=== PATIENT | male | born 1970 | race Caucasian/White ===

== ENCOUNTER 2017-10-30 15:34 | Emergency (ER) | payer BC ==
--- OUTSIDE RECORDS SUMMARY | 2017-10-30 15:42 | XMS REPORT ---
:1970 External Reference #:[id number] Author Organization [employer] Address [address] [address] Phone [phone] Care Team Providers Name Role Phone Ulises Mckee III, MD Primary Care Physician Unavailable Payers Type Date Identification Numbers Payment Provider Subscriber Commercial Policy Number: [id number] [facility] Charla Fleming PayID: [id number] [address] [address] ADRIANNE Silva [address] Medigap Part B Effective: [facility] [id number] Expires: 2012 PayID: [id number] [address] [address] ADRIANNE Bone [address] Medigap Part B Expires: 2010 Policy Number: [facility] Charla Fleming [id number] Care ([facility]) Group Number: [id number] [address] PayID: [id number] [place] [address] Problems Date Description Provider Status Onset: 04/12/2011 Elevated blood-pressure reading Ulises Mckee M.D. Active without diagnosis of hypertension Onset: 03/13/2012 Benign essential hypertension Ulises Mckee M.D. Active Onset: 04/02/2013 Acute pharyngitis Julio Cameron M.D. Active Onset: 04/02/2013 Myalgia & Myositis Unspec Julio Cameron M.D. Active Onset: 09/01/2017 Migraine without aura, not refractory Julio Cameron M.D. Active Onset: 10/08/2015 Essential hypertension Ulises Mckee M.D. Active Family History Date Family Member(s) Problem(s) Comments First Brother Alive And Well 1/2 brother with father in common Social History Type Date Description Comments Marital Status Single Occupation [employer] Cigarette Use Never Smoked Cigarettes ETOH Use Occasionally consumes alcohol Smoking Patient has never smoked Exercise Type/Frequency Exercises regularly hikes 10 miles weekly, walks regularly Allergies, Adverse Reactions, Alerts Date Description Reaction Status Severity Comments 10/11/2007 NKDA active Medications Medication Date Status Form Strength Qnty SIG Indications Ordering Provider Sumatriptan 09/01 Active Tablets 100mg 9tabs use at onset G43.009 Julio of head mariza Calix M.D. repeat after 2h as needed Valsartan 04/18 Active Tablets 160mg 90tab 1 by mouth I10 Ulises Bowers s every day Raghav Mckee Chlorthalidone 09/13 Active Tablets 25mg 45tab 1 by mouth I10 Ulises Bowers /2012 s every day Raghav Mckee Aleve Active Tablets 220mg as needed Unknown /0000 Advil 00 Active Tablets 200mg as needed Unknown /0000 Emergen-C Active Packet as needed Unknown Vitamin C Lite /0000 Pantoprazole 09/[address] 40mg 30tab 1 in the s morning Rakesh barrow M.D. 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 1% 10ml 2 drops H60.8x1 Michael ike- affected ear Kennedy, [employer] - three times 02/23 a day x days Valsartan 01/05 Hx Tablets 80mg 90tab 1 by mouth I10 Ulises EAustin s every day Aleshia Mckee M.D. 04/18 Rhinocort Aqua 12/11 Hx Suspension 32mcg/Act 1unit spray 1 J30.9 s spray into [place], - each nostril Raghav 01/05 once daily Clarinex 12/11 Hx Tablets 5mg 30tab 1 tab po J30.9 s everyday Aleshia Tavarez M.D. 01/05 Amlodipine 12/05 Hx Tablets 10mg 90tab 1 by mouth Ulises Bowers Besylate /2012 s every day - Rylee - pt dane Avilez 08/26 currently Lisinopril 10/25 Hx Tablets 10mg 90tab 1 po qd Ulises Bowers s Aleshia Mckee M.D. 12/05 Doxycycline 01/05 Hx Tablets 100mg 4tabs 2 tabs po x1 Ulises Bowers Hyclate /2011 then prn Aleshia Mckee M.D. 03/13 Flexeril 10/11 Hx Tablets 10mg 30tab 1 po tid prn Ulises Bowers /2007 s back spasms Aleshia Mckee M.D. 04/25 Tylenol/Codeine 10/11 Hx Tablets #3 30tab 1-2 q 6 Ulises E. #3 s hours po qhs Aleshia Mckee M.D. 04/25 Aleve Hx Tablets 220mg prn Unknown /0000 - 09/13 Celebrex Hx Capsules 200mg 30cap 1 po qd Unknown /0000 s - 09/13 Chlorhexidine Hx Solution 0.12% 15 Unknown Gluconate /0000 milliliters - swish/spit 01/20 twice a day /2014 Immunizations CPT Code Status Date Vaccine Lot # [id number] Given 10/19/2017 Influenza Virus Vaccine, Quadrivalent, Split, [id number] Preservative Free [id number] Given 10/08/2015 Influenza Virus Vaccine, Quadrivalent, Split, [id number] Preservative Free 81432 Given 08/26/2014 Flu Vaccine Split Virus Preservative Free For [id number] Indiv 3Yr Older [id number] Given 06/13/2012 Fluzone Vaccine [id number] Given 06/04/2010 Tdap - Tetanus/Diptheria/Acellular Pertussis 51028 Given 03/15/2002 Td (History By Patient) 82584 Given Unknown Tetanus And Diptheria (Td) For Adult Use Preservative Free Vital Signs Date Vital Result Comment 10/26/2017 Weight 196.00 lb Heart Rate 86 /min BP Systolic Sitting 150 mmHg BP Diastolic Sitting 60 mmHg Body Temperature 97.5 F O2 % BldC Oximetry 96 % 10/19/2017 Weight 198.00 lb Heart Rate 80 /min BP Systolic Sitting 156 mmHg BP Diastolic Sitting 94 mmHg O2 % BldC Oximetry 99 % 09/22/2017 Weight 195.50 lb Heart Rate 81 /min BP Systolic Sitting 138 mmHg BP Diastolic Sitting 78 mmHg Body Temperature 98.0 F O2 % BldC Oximetry 98 % 09/01/2017 Weight 194.38 lb Heart Rate 83 /min BP Systolic Sitting 148 mmHg BP Diastolic Sitting 100 mmHg Body Temperature 96.6 F O2 % BldC Oximetry 97 % 07/19/2017 Height 70 inches 5'10" Weight 199.00 lb Heart Rate 76 /min BP Systolic Sitting 158 mmHg BP Diastolic Sitting 108 mmHg Body Temperature 98.0 F O2 % BldC Oximetry 98 % BMI (Body Mass Index) 28.6 kg/m2 04/18/2017 Height 70 inches 5'10" Weight 195.00 lb w/ shoes Heart Rate 70 /min reg BP Systolic Sitting 144 mmHg Rue, reg cuff BP Diastolic Sitting 88 mmHg Rue, reg cuff Respiratory Rate 16 /min Body Temperature 98.8 F oral Pain Level 1 lower back and right knee O2 % BldC Oximetry 96 % on Ra BMI (Body Mass Index) 28.0 kg/m2 10/13/2016 Weight 195.00 lb Heart Rate 76 /min BP Systolic Sitting 130 mmHg BP Diastolic Sitting 82 mmHg Respiratory Rate 15 /min Body Temperature 97.9 F O2 % BldC Oximetry 98 % 08/11/2016 Weight 195.00 lb Heart Rate 90 /min BP Systolic Sitting 134 mmHg BP Diastolic Sitting 98 mmHg Body Temperature 98.2 F O2 % BldC Oximetry 98 % 05/17/2016 Weight 192.00 lb Heart Rate 77 /min BP Systolic Sitting 148 mmHg BP Diastolic Sitting 98 mmHg Body Temperature 97.6 F O2 % BldC Oximetry 97 % 04/12/2016 Height 69.5 inches 5'9.50" Weight 190.00 lb Heart Rate 64 /min BP Systolic Sitting 136 mmHg BP Diastolic Sitting 94 mmHg Body Temperature 96.9 F O2 % BldC Oximetry 98 % BMI (Body Mass Index) 27.7 kg/m2 03/02/2016 Weight 192.00 lb Heart Rate 78 /min BP Systolic Sitting 120 mmHg BP Diastolic Sitting 76 mmHg Respiratory Rate 15 /min Body Temperature 97.6 F O2 % BldC Oximetry 98 % 02/13/2016 Weight 192.00 lb Heart Rate 79 /min BP Systolic Sitting 140 mmHg BP Diastolic Sitting 86 mmHg Body Temperature 97.3 F Pain Level 99 01/06/2016 Weight 196.00 lb Heart Rate 65 /min BP Systolic Sitting 152 mmHg BP Diastolic Sitting 96 mmHg Body Temperature 97.1 F O2 % BldC Oximetry 98 % 12/12/2015 Weight 194.00 lb Heart Rate 80 /min BP Systolic Sitting 150 mmHg BP Diastolic Sitting 102 mmHg Body Temperature 97.4 F O2 % BldC Oximetry 98 % 10/31/2015 Height 70.25 inches 5'10.25" Weight 194.00 lb Heart Rate 81 /min BP Systolic 138 mmHg BP Diastolic 90 mmHg Body Temperature 97.6 F O2 % BldC Oximetry 97 % BMI (Body Mass Index) 27.6 kg/m2 10/08/2015 Weight 196.25 lb Heart Rate 70 /min BP Systolic Sitting 138 mmHg BP Diastolic Sitting 100 mmHg Body Temperature 97.2 F O2 % BldC Oximetry 98 % 04/07/2015 Height 70.25 inches 5'10.25" Weight 184.00 lb Heart Rate 65 /min BP Systolic Sitting 138 mmHg BP Diastolic Sitting 88 mmHg Body Temperature 97.0 F O2 % BldC Oximetry 99 % BMI (Body Mass Index) 26.2 kg/m2 01/20/2015 Weight 194.25 lb Heart Rate 87 /min BP Systolic Sitting 160 mmHg BP Diastolic Sitting 90 mmHg Body Temperature 97.9 F O2 % BldC Oximetry 98 % 11/12/2014 Weight 192.50 lb Heart Rate 80 /min BP Systolic Sitting 150 mmHg BP Diastolic Sitting 88 mmHg Respiratory Rate 16 /min Body Temperature 98.0 F 08/26/2014 Weight 192.00 lb Heart Rate 78 /min BP Systolic Sitting 134 mmHg BP Diastolic Sitting 88 mmHg 02/19/2014 Weight 193.00 lb Heart Rate 78 /min BP Systolic 112 mmHg Lt arm BP Diastolic 84 mmHg Lt arm BP Systolic Sitting 108 mmHg Rt arm BP Diastolic Sitting 94 mmHg Rt arm BP Systolic Standing 119 mmHg Pt Bp machine BP Diastolic Standing 87 mmHg Pt Bp machine 04/02/2013 Height 70.25 inches 5'10.25" Weight 190.00 lb Heart Rate 75 /min BP Systolic Sitting 124 mmHg BP Diastolic Sitting 84 mmHg Body Temperature 96.5 F O2 % BldC Oximetry 99 % BMI (Body Mass Index) 27.1 kg/m2 11/07/2012 Height 70.25 inches 5'10.25" Weight 201.25 lb Heart Rate 82 /min BP Systolic Sitting 134 mmHg BP Diastolic Sitting 80 mmHg Respiratory Rate 20 /min Body Temperature 97.9 F O2 % BldC Oximetry 93 % BMI (Body Mass Index) 28.7 kg/m2 10/16/2012 Height 70.25 inches 5'10.25" BP Systolic 151 mmHg His Machine BP Diastolic 89 mmHg His Machine BP Systolic Sitting 143 mmHg BP Diastolic Sitting 90 mmHg 09/13/2012 Height 70.25 inches 5'10.25" Weight 197.00 lb Heart Rate 64 /min BP Systolic Sitting 164 mmHg BP Diastolic Sitting 110 mmHg BMI (Body Mass Index) 28.1 kg/m2 08/03/2012 Height 70.25 inches 5'10.25" Weight 197.00 lb Heart Rate 88 /min BP Systolic Sitting 152 mmHg BP Diastolic Sitting 106 mmHg BMI (Body Mass Index) 28.1 kg/m2 07/25/2012 Height 70.5 inches 5'10.50" Weight 198.00 lb Heart Rate 84 /min BP Systolic Sitting 152 mmHg BP Diastolic Sitting 104 mmHg BMI (Body Mass Index) 28.0 kg/m2 03/13/2012 Height 70.5 inches 5'10.50" Weight 192.50 lb Heart Rate 84 /min BP Systolic Sitting 144 mmHg BP Diastolic Sitting 104 mmHg BMI (Body Mass Index) 27.2 kg/m2 10/13/2011 Height 70 inches 5'10" Weight 201.00 lb Heart Rate 72 /min BP Systolic 164 mmHg l (pt. machine) BP Diastolic 99 mmHg l (pt. machine) BP Systolic Sitting 148 mmHg l (Nurse) BP Diastolic Sitting 98 mmHg l (Nurse) BMI (Body Mass Index) 28.8 kg/m2 05/04/2011 Weight 191.00 lb Heart Rate 80 /min BP Systolic Sitting 122 mmHg BP Diastolic Sitting 80 mmHg 04/12/2011 Height 70 inches 5'10" Weight 193.00 lb Heart Rate 76 /min BP Systolic Sitting 132 mmHg BP Diastolic Sitting 88 mmHg BMI (Body Mass Index) 27.7 kg/m2 03/11/2011 Height 70 inches 5'10" Weight 197.00 lb Heart Rate 78 /min BP Systolic Sitting 142 mmHg BP Diastolic Sitting 80 mmHg BMI (Body Mass Index) 28.3 kg/m2 12/31/2009 Weight 196.00 lb Heart Rate 74 /min BP Systolic Sitting 120 mmHg BP Diastolic Sitting 90 mmHg 07/21/2009 Height 70.5 inches 5'10.50" Weight 192.00 lb Heart Rate 78 /min BP Systolic Sitting 172 mmHg repeat 146/ 90 BP Diastolic Sitting 90 mmHg repeat 146/ 90 Body Temperature 101.3 F BMI (Body Mass Index) 27.2 kg/m2 01/22/2009 Height 70.5 inches 5'10.50" Weight 192.00 lb up 7# Heart Rate 72 /min BP Systolic Sitting 114 mmHg BP Diastolic Sitting 70 mmHg BMI (Body Mass Index) 27.2 kg/m2 04/25/2008 Height 70.5 inches 5'10.50" Weight 185.00 lb Heart Rate 68 /min BP Systolic Sitting 126 mmHg BP Diastolic Sitting 84 mmHg BMI (Body Mass Index) 26.2 kg/m2 10/11/2007 Heart Rate 84 /min BP Systolic Sitting 142 mmHg BP Diastolic Sitting 86 mmHg 04/04/2007 Weight 192.00 lb Heart Rate 80 /min BP Systolic Sitting 132 mmHg BP Diastolic Sitting 98 mmHg Results Test Date Test Result H/L Range Note Laboratory test 09/01/2017 C Difficile PCR SEE RESULT BELOW 1, 2 finding Ua Routine 07/19/2017 Ua Specific [place] 1.010 Ua PH 7 Ua Color Yellow Ua Appera Clear Ua WBC Neg Ua Protein Neg Ua Glucose Neg Ua Ketones Neg Ua Bilirubin Neg Ua Urobilinogen Neg Ua Nitrite Neg Ua Occult Blood Neg Basic Metabolic Panel 05/31/2017 Sodium 140 mmol/L 133-145 Potassium 4.0 mmol/L 3.5-5.0 Chloride 104 mmol/L 101-111 Co2 Carbon Dioxide 30 mmol/L 22-32 Anion Gap 6 mmol/L 2-11 Glucose 96 mg/dL 70-100 Blood Urea Nitrogen 20 mg/dL 6-24 Creatinine 1.19 mg/dL High 0.67-1.17 BUN/Creatinine Ratio 16.8 8-20 Calcium 9.0 mg/dL 8.6-10.3 Egfr Non- 65.5 >60 Egfr 84.3 >60 3 Basic Metabolic Panel 04/08/2017 Sodium 141 mmol/L 133-145 Potassium 3.4 mmol/L Low 3.5-5.0 Chloride 106 mmol/L 101-111 Co2 Carbon Dioxide 29 mmol/L 22-32 Anion Gap 6 mmol/L 2-11 Glucose 101 mg/dL High 70-100 Blood Urea Nitrogen 16 mg/dL 6-24 Creatinine 1.15 mg/dL 0.67-1.17 BUN/Creatinine Ratio 13.9 8-20 Calcium 8.7 mg/dL 8.6-10.3 Egfr Non- 68.2 >60 Egfr 87.7 >60 4 Laboratory test finding 04/08/2017 PSA Screening 3.703 ng/mL 0-4.0 5 Laboratory test finding 05/28/2016 Lyme Disease Serology Negative Negative 6 Laboratory test finding 05/04/2016 Troponin-I (TnI) 0.01 ng/mL <0.03 7 Lipid Profile 04/01/2016 Triglycerides 107 mg/dL 8 (Trig/Chol/HDL) Cholesterol 187 mg/dL 9 HDL Cholesterol 51.6 mg/dL 10 LDL Cholesterol 114 mg/dL 11 Basic Metabolic Panel 02/18/2016 Sodium 139 mmol/L 133-145 Potassium 3.5 mmol/L 3.5-5.0 Chloride 103 mmol/L 101-111 Co2 Carbon Dioxide 28 mmol/L 22-32 Anion Gap 8 mmol/L 2-11 Glucose 101 mg/dL High 70-100 Blood Urea Nitrogen 15 mg/dL 6-24 Creatinine 1.18 mg/dL High 0.67-1.17 BUN/Creatinine Ratio 12.7 8-20 Calcium 9.0 mg/dL 8.6-10.3 Egfr Non- 66.8 >60 Egfr 85.9 >60 12 CBC Auto Diff 10/08/2015 White Blood Count 8.0 10^3/uL 3.5-10.8 Red Blood Count 4.77 10^6/uL 4.0-5.4 Hemoglobin 14.5 g/dL 14.0-18.0 Hematocrit 42 % 42-52 Mean Corpuscular Volume 88 fL 80-94 Mean Corpuscular Hemoglobin 30 pg 27-31 Mean Corpuscular HGB Conc 35 g/dL 31-36 Red Cell Distribution Width 14 % 10.5-15 Platelet Count 185 10^3/uL 150-450 Mean Platelet Volume 8 um3 7.4-10.4 Abs Neutrophils 5.7 10^3/uL 1.5-7.7 Abs Lymphocytes 1.4 10^3/uL 1.0-4.8 Abs Monocytes 0.6 10^3/uL 0-0.8 Abs Eosinophils 0.1 10^3/uL 0-0.6 Abs Basophils 0.1 10^3/uL 0-0.2 Abs Nucleated RBC 0 10^3/uL Granulocyte % 72.0 % 38-83 Lymphocyte % 17.8 % Low 25-47 Monocyte % 8.0 % 1-9 Eosinophil % 1.4 % 0-6 Basophil % 0.8 % 0-2 Nucleated Red Blood Cells % 0 Urinalysis Profile 10/08/2015 Urine Color Yellow Urine Appearance Clear Urine Specific [place] 1.010 1.010-1.030 Urine pH 7.0 5-9 Urine Urobilinogen Negative Negative Urine Ketones Negative Negative Urine Protein Negative Negative Urine Leukocytes Negative Negative Urine Blood Negative Negative Urine Nitrite Negative Negative Urine Bilirubin Negative Negative Urine Glucose Negative Negative Laboratory test finding 10/08/2015 PSA Diagnostic 4.026 ng/mL High 0- 4.000 13 Comp Metabolic Panel 02/12/2015 Sodium 139 mmol/L 133-145 Potassium 3.9 mmol/L 3.5-5.0 Chloride 104 mmol/L 101-111 Co2 Carbon Dioxide 32 mmol/L 22-32 Anion Gap 3 mmol/L 2-11 Glucose 101 mg/dL High 70-100 Blood Urea Nitrogen 13 mg/dL 6-24 Creatinine 1.18 mg/dL High 0.67-1.17 BUN/Creatinine Ratio 11.0 8-20 Calcium 9.1 mg/dL 8.6-10.3 Total Protein 6.4 g/dL 6.4-8.9 Albumin 4.3 g/dL 3.2-5.2 Globulin 2.1 g/dL 2-4 Albumin/Globulin Ratio 2.0 1-3 Total Bilirubin 0.60 mg/dL 0.2-1.0 Alkaline Phosphatase 68 U/L 34-104 Alt 24 U/L 7-52 Ast 18 U/L 13-39 Egfr Non- 67.1 >60 Egfr 86.2 >60 14 Lipid Profile (Trig/Chol/HDL) 02/12/2015 Triglycerides 114 mg/dL 15 Cholesterol 174 mg/dL 16 HDL Cholesterol 42.3 mg/dL 17 LDL Cholesterol 109 mg/dL 18 CBC Auto Diff 02/19/2014 White Blood Count 4.9 10^3/uL 4.8-10.8 Red Blood Count 4.69 10^6/uL 4.0-5.4 Hemoglobin 14.3 g/dL 14.0-18.0 Hematocrit 41 % Low 42-52 Mean Corpuscular Volume 88 fL 80-94 Mean Corpuscular Hemoglobin 31 pg 27-31 Mean Corpuscular HGB Conc 35 g/dL 31-36 Red Cell Distribution Width 14 % 10.5-15 Platelet Count 198 10^3/uL 150-450 Mean Platelet Volume 8 um3 7.4-10.4 Abs Neutrophils 3.1 10^3/uL 1.5-7.7 Abs Lymphocytes 1.2 10^3/uL 1.0-4.8 Abs Monocytes 0.4 10^3/uL 0-0.8 Abs Eosinophils 0.1 10^3/uL 0-0.6 Abs Basophils 0.1 10^3/uL 0-0.2 Abs Nucleated RBC 0 10^3/uL Granulocyte % 64.2 % 38-83 Lymphocyte % 24.1 % Low 25-47 Monocyte % 9.0 % 1-9 Eosinophil % 1.5 % 0-6 Basophil % 1.2 % 0-2 Nucleated Red Blood Cells % 0.1 Laboratory test finding 02/19/2014 C Reactive Protein < 1.00 mg/L &lt ; 5.00 19 Erythrocyte Sed Rate 7 mm/Hr 0-14 TSH (Thyroid Stimulating Horm) 1.51 IU/mL 0.34-5.60 Lipid Profile (Trig/Chol/HDL) 02/07/2014 Triglycerides 144 mg/dL 20 Cholesterol 199 mg/dL 21 HDL Cholesterol 46.8 mg/dL 22 LDL Cholesterol 123 mg/dL 23 Basic Metabolic Panel 02/07/2014 Sodium 140 mmol/L 133-145 Potassium 3.9 mmol/L 3.7-5.6 Chloride 104 mmol/L 101-111 Co2 Carbon Dioxide 31 mmol/L 22-32 Anion Gap 5 mmol/L 2-11 Glucose 92 mg/dL 70-100 Blood Urea Nitrogen 13 mg/dL 6-24 Creatinine 1.29 mg/dL High 0.67-1.17 BUN/Creatinine Ratio 10.1 8-20 Calcium 9.4 mg/dL 8.6-10.3 Egfr Non- 60.8 >60 Egfr 78.2 >60 24 Laboratory test finding 10/25/2013 Troponin I < 0.01 ng/mL <0.03 25 CKMB 10/25/2013 CKMB ng/mL 5.3 ng/mL 0.6-6.3 Laboratory test finding 10/25/2013 Creatine Kinase 202 U/L 10-223 CBC Auto Diff 10/25/2013 White Blood Count 5.0 10^3/uL 4.8-10.8 Red Blood Count 5.02 10^6/uL 4.0-5.4 Hemoglobin 14.6 g/dL 14.0-18.0 Hematocrit 44 % 42-52 Mean Corpuscular Volume 87 fL 80-94 Mean Corpuscular Hemoglobin 29 pg 27-31 Mean Corpuscular HGB Conc 34 g/dL 31-36 Red Cell Distribution Width 14 % 10.5-15 Platelet Count 188 10^3/uL 150-450 Mean Platelet Volume 8 um3 7.4-10.4 Abs Neutrophils 3.4 10^3/uL 1.5-7.7 Abs Lymphocytes 1.2 10^3/uL 1.0-4.8 Abs Monocytes 0.3 10^3/uL 0-0.8 Abs Eosinophils 0.1 10^3/uL 0-0.6 Abs Basophils 0.1 10^3/uL 0-0.2 Abs Nucleated RBC 0 10^3/uL Granulocyte % 67.2 % 38-83 Lymphocyte % 23.6 % Low 25-47 Monocyte % 6.9 % 1-9 Eosinophil % 1.2 % 0-6 Basophil % 1.1 % 0-2 Nucleated Red Blood Cells % 0.1 Laboratory test finding 10/25/2013 B Type Natriuretic 16 pg/mL 26 Peptide Laboratory test finding 10/25/2013 Troponin I 0.01 ng/mL <0.03 27 Inr/Protime 10/25/2013 Inr 0.91 0.85-1.06 Laboratory test finding 10/25/2013 Activated Partial 31.5 seconds 24.0- 36.1 Thrombo Time Comp Metabolic Panel 10/25/2013 Sodium 140 mmol/L 133-145 Potassium 3.9 mmol/L 3.7-5.6 Chloride 103 mmol/L 101-111 Co2 Carbon Dioxide 31 mmol/L 22-32 Anion Gap 6 mmol/L 2-11 Glucose 97 mg/dL 70-100 Blood Urea Nitrogen 15 mg/dL 6-24 Creatinine 1.22 mg/dL High 0.67-1.17 BUN/Creatinine Ratio 12.3 8-20 Calcium 9.6 mg/dL 8.6-10.3 Total Protein 7.1 g/dL 6.4-8.9 Albumin 4.6 g/dL 3.2-5.2 Globulin 2.5 g/dL 2-4 Albumin/Globulin Ratio 1.8 1-3 Total Bilirubin 0.70 mg/dL 0.2-1.0 Alkaline Phosphatase 68 U/L 34-104 Alt 34 U/L 7-52 Ast 26 U/L 13-39 Egfr Non- 64.8 >60 Egfr 83.4 >60 28 CBC Auto Diff 07/02/2013 White Blood Count 11.8 10^3/uL High 4.8-10.8 Red Blood Count 4.42 10^6/uL 4.0-5.4 Hemoglobin 13.9 g/dL Low 14.0-18.0 Hematocrit 39 % Low 42-52 Mean Corpuscular Volume 89 fL 80-94 Mean Corpuscular Hemoglobin 32 pg High 27-31 Mean Corpuscular HGB Conc 35 g/dL 31-36 Red Cell Distribution Width 13 % 10.5-15 Platelet Count 189 10^3/uL 150-450 Mean Platelet Volume 8 um3 7.4-10.4 Abs Neutrophils 10.2 10^3/uL High 1.5-7.7 Abs Lymphocytes 1.0 10^3/uL 1.0-4.8 Abs Monocytes 0.4 10^3/uL 0-0.8 Abs Eosinophils 0.1 10^3/uL 0-0.6 Abs Basophils 0.1 10^3/uL 0-0.2 Abs Nucleated RBC 0.01 10^3/uL Granulocyte % 86.6 % High 38-83 Lymphocyte % 8.7 % Low 25-47 Monocyte % 3.3 % 1-9 Eosinophil % 0.6 % 0-6 Basophil % 0.8 % 0-2 Nucleated Red Blood Cells % 0.1 Comp Metabolic Panel 07/02/2013 Sodium 138 mmol/L 133-145 Potassium 3.2 mmol/L Low 3.5-5.0 Chloride 102 mmol/L 101-111 Co2 Carbon Dioxide 28.0 mmol/L 22-32 Anion Gap 8.0 mmol/L 2-11 Glucose 145 mg/dL High 70-100 Blood Urea Nitrogen 21 mg/dL 6-24 Creatinine 1.10 mg/dL 0.50-1.40 BUN/Creatinine Ratio 19.1 8-20 Calcium 8.8 mg/dL 8.1-9.9 Total Protein 7.0 g/dL 6.2-8.1 Albumin 4.2 g/dL 3.6-5.4 Globulin 2.8 g/dL 2-4 Albumin/Globulin Ratio 1.5 1-3 Total Bilirubin 0.6 mg/dL 0.4-1.5 Alkaline Phosphatase 77 U/L 30-110 Alt 28 U/L 14-54 Ast 25 U/L 12-42 Egfr Non- 73.1 >60 Egfr 94.0 >60 29 Laboratory test finding 07/02/2013 Lipase 38 U/L 22-51 Troponin I 0 ng/mL 0-0.06 30 C Reactive Protein 0.7 mg/dL High Less than 0.5 Urinalysis 07/02/2013 Urine Color Yellow Urine Appearance Clear Urine Specific [place] 1.015 1.010-1.030 Urine Esterase Negative Negative Urine Nitrate Negative Negative Urine Urobilinogen Negative E.U./dL Negative Urine Protein Negative mg/dL Negative Urine pH 7.5 5-9 Urine Blood Negative Negative Urine Ketones Negative mg/dL Negative Urine Bilirubin Negative Negative Urine Glucose Negative mg/dL Negative Comp Metabolic Panel 04/02/2013 Sodium 139 mmol/L 133-145 Potassium 4.0 mmol/L 3.5-5.0 Chloride 101 mmol/L 101-111 Co2 Carbon Dioxide 32.0 mmol/L 22-32 Anion Gap 6.0 mmol/L 2-11 Glucose 96 mg/dL 70-100 Blood Urea Nitrogen 11 mg/dL 6-24 Creatinine 1.20 mg/dL 0.50-1.40 BUN/Creatinine Ratio 9.2 8-20 Calcium 9.4 mg/dL 8.1-9.9 Total Protein 6.8 g/dL 6.2-8.1 Albumin 4.4 g/dL 3.6-5.4 Globulin 2.4 g/dL 2-4 Albumin/Globulin Ratio 1.8 1-3 Total Bilirubin 0.9 mg/dL 0.4-1.5 Alkaline Phosphatase 96 U/L 30-110 Alt 30 U/L 14-54 Ast 23 U/L 12-42 Egfr Non- 66.1 >60 Egfr 85.0 >60 31 CBC Auto Diff 04/02/2013 White Blood Count 6.7 10^3/uL 4.8-10.8 Red Blood Count 4.76 10^6/uL 4.0-5.4 Hemoglobin 14.4 g/dL 14.0-18.0 Hematocrit 43 % 42-52 Mean Corpuscular Volume 90 fL 80-94 Mean Corpuscular Hemoglobin 30 pg 27-31 Mean Corpuscular HGB Conc 34 g/dL 31-36 Red Cell Distribution Width 14 % 10.5-15 Platelet Count 141 10^3/uL Low 150-450 Mean Platelet Volume 10 um3 7.4-10.4 Abs Neutrophils 4.6 10^3/uL 1.5-7.7 Abs Lymphocytes 1.0 10^3/uL 1.0-4.8 Abs Monocytes 0.7 10^3/uL 0-0.8 Abs Eosinophils 0.1 10^3/uL 0-0.6 Abs Basophils 0.2 10^3/uL 0-0.2 Abs Nucleated RBC 0.01 10^3/uL [facility] Comprehensive 04/02/2013 Ebv Capsid Ag IgG Ab Negative Negative Ebv Capsid Ag IgM Ab Negative Negative [facility] Nuclear Antigen Negative Negative [facility] Virus Interp See Comment 32 Manual Differential 04/02/2013 Neutrophil % 65 % 38-83 Band % 2 % 0-8 Lymphocytes % 23 % Low 25-47 Monocytes % 7 % 0-13 Eosinophils % 3 % 0-6 RBC Morphology Normal Normal Laboratory test finding 04/02/2013 Throat Culture (SEE NOTE) 33 Laboratory test finding 04/02/2013 Rapid Strep A negative Basic Metabolic Panel 10/12/2012 Sodium 140 mmol/L 133-145 Potassium 3.6 mmol/L 3.5-5.0 Chloride 102 mmol/L 101-111 Co2 Carbon Dioxide 32.0 mmol/L 22-32 Anion Gap 6.0 mmol/L 2-11 Glucose 86 mg/dL 70-100 Blood Urea Nitrogen 15 mg/dL 6-24 Creatinine 1.20 mg/dL 0.50-1.40 BUN/Creatinine Ratio 12.5 8-20 Calcium 9.5 mg/dL 8.1-9.9 Egfr Non- 66.4 >60 Egfr 85.4 >60 34 Urine Culture And Sensitivities 07/31/2012 Urine Culture (SEE NOTE) 35 Urinalysis W/Microscopic 07/31/2012 Urine Color Yellow Urine Appearance Clear Urine Specific [place] 1.009 Low 1.010-1.030 Urine Esterase 1+ Negative Urine Nitrate Negative Negative Urine Urobilinogen Negative Negative Urine Protein Negative Negative Urine pH 6.5 5-9 Urine Blood Negative Negative Urine Ketones Negative Negative Urine Bilirubin Negative Negative Urine Glucose Negative Negative Urine WBC 1+ (<3 /hpf) None Seen Urine RBC None Seen None Seen Urine Epithelial Cells 1+ Squamous /hpf None Seen Lipid Profile (Trig/Chol/HDL) 02/25/2012 Triglyceride 122 mg/dL 40-200 Cholesterol 183 mg/dL Less Than 200 36 High Density Lipoprotein 46 mg/dL 40-60 37 Cholesterol/HDL Ratio 3.98 AVERAGE 1-4.97 Low Density Lipoprotein 113 mg/dL High Less Than 100 38 Basic Metabolic Panel 02/25/2012 Sodium 140 mmol/L 135-145 Potassium 3.8 mmol/L 3.5-5.0 Chloride 107 mmol/L 101-111 Co2 (Carbon Dioxide) 28.0 mmol/L 22-32 Anion Gap 5.0 mmol/L 2-11 39 Glucose 88 mg/dL 70-100 BUN 12 mg/dL 6-24 Creatinine 1.4 mg/dL 0.50-1.40 One Over Creatinine 0.71 BUN/Creatinine Ratio 8.6 8-20 Calcium 9.0 mg/dL 8.1-9.9 eGFR Non- 55.8 > 60 eGFR 71.8 > [address] Mckee's Lab Panel 02/09/2011 TSH 3.25 MIU/ML 0.34-5.60 Comp Metabolic Panel 02/09/2011 Sodium 139 mmol/L 135-145 Potassium 4.0 mmol/L 3.5-5.0 Chloride 103 mmol/L 101-111 Co2 (Carbon Dioxide) 29.0 mmol/L 22-32 Anion Gap 7.0 mmol/L 2-11 41 Glucose 100 mg/dL 70-100 BUN 13 mg/dL 6-24 Creatinine 1.40 mg/dL 0.50-1.40 One Over Creatinine 0.70 BUN/Creatinine Ratio 9.3 8-20 Calcium 9.1 mg/dL 8.1-9.9 Total Protein 6.4 GM/DL 6.2-8.1 Albumin 4.3 GM/DL 3.6-5.4 Globulin 2.1 GM/DL 2-4 Albumin/Globulin Ratio 2.0 1-3 Bilirubin Total 0.9 mg/dL 0.4-1.5 42 Alkaline Phosphatase 82 U/L 39-117 Alt (SGPT) 28 U/L 17-63 Ast (Sgot) 24 U/L 12-42 eGFR Non- 56.1 > 60 eGFR 72.2 > 60 43 Lipid Profile (Trig/Chol/HDL) 02/09/2011 Triglyceride 133 mg/dL 40-200 Cholesterol 194 mg/dL Less Than 200 44 High Density Lipoprotein 45 mg/dL 40-60 45 Cholesterol/HDL Ratio 4.31 AVERAGE 1-4.97 Low Density Lipoprotein 122 mg/dL High Less Than 100 46 CBC Auto Diff 02/09/2011 White Blood Count 5.4 CUMM 4.8-10.8 Red Cell Count 4.56 CUMM Low 4.6-6.2 Hemoglobin 13.8 g/dL Low 14.0-18.0 Hematocrit 42 % 42-52 Mean Corpuscular Volume 91 um3 80-94 Mean Corpuscular Hemoglob 30 pg 27-31 Mean Corpuscular HGB Cone 33 g/dL 32-36 Redcell Distribution WDTH 14 % 10.5-15 Platelet Count 176 CUMM 150-450 Mean Platelet Volume 9.1 um3 7.4-10.4 Gran % 53.2 % 38-83 Lymph % 33.4 % 25-47 Mononuclear % 10.7 % High 1-9 Eosinophil % 2.2 % 0-6 Basophil % 0.5 % 0-2 Abs Lymphs 1.8 1.0-4.8 Abs Mononuclear 0.6 0-0.8 Absolute Neutrophil Count 2.9 1.5-7.7 Abs Eosinophils 0.1 0-0.6 Abs Basophils 0 0-0.2 [facility] 04/05/2007 CHL On Urine NEGATIVE Negative 47 GC On Urine NEGATIVE Negative 48 1 [id number] 2 SEE RESULT BELOW Name: CHARLA FLEMING : [address]: Julio Cameron MD Acct: [id number] Unit: [id number] AGE: 47 Location: [facility] Re09/01/17 SEX: M Status: REG REF SPEC: [id number] SHARON: 09/01/17-[address]: Julio Cameron MD REQ: [id number] RECD: 09/01/17 STATUS: COMP _ SOURCE: STOOL SPDESC: ORDERED: C. diff PCR COMMENTS: [id number] Procedure Result Reported Site Stool Specimen Description Final 09/02/17- 09 ML Stool Color Brown Stool Form Formed Stool Consistency Firm C. difficile PCR Final 09/01/17- 1941 ML Organism 1 027 Presumptive NEGATIVE Organism 2 Toxigenic C.diff NEGATIVE * ML - MAIN LAB ([facility]) . END OF REPORT * ML=Testing performed at Main Lab DEPARTMENT OF PATHOLOGY, [address] [place] [address] Ismael Boland M.D. Director [facility] # [id number] 3 Because ethnic data is not always readily available, this report includes an eGFR for both -Americans and non- Americans. The National Kidney Disease Education Program (NKDEP) does not endorse the use of the MDRD equation for patients that are not between the ages of 18 and 70, are , have extremes of body size, muscle mass, or nutritional status, or are non- or non-. According to the National Kidney Foundation, irrespective of diagnosis, the stage of the disease is based on the level of kidney function: Stage Description GFR(mL/min/1.73 m(2)) 1 Kidney damage with normal or decreased GFR 90 2 Kidney damage with mild decrease in GFR 60-89 3 Moderate decrease in GFR 30-59 4 Severe decrease in GFR 15-29 5 Kidney failure <15 (or dialysis) 4 Because ethnic data is not always readily available, this report includes an eGFR for both -Americans and non- Americans. The National Kidney Disease Education Program (NKDEP) does not endorse the use of the MDRD equation for patients that are not between the ages of 18 and 70, are , have extremes of body size, muscle mass, or nutritional status, or are non- or non-. According to the National Kidney Foundation, irrespective of diagnosis, the stage of the disease is based on the level of kidney function: Stage Description GFR(mL/min/1.73 m(2)) 1 Kidney damage with normal or decreased GFR 90 2 Kidney damage with mild decrease in GFR 60-89 3 Moderate decrease in GFR 30-59 4 Severe decrease in GFR 15-29 5 Kidney failure <15 (or dialysis) 5 Serum levels of PSA measured using the [employer] DXI Hybritech immunoassay should not be interpreted as absolute evidence of the presence or absence of disease. The PSA value should be used in conjunction with other pertinent clinical diagnostic procedures. The values obtained with different assay methods or kits cannot be used interchangeably. 6 Serologic response to B. burgdorferi infection is not detected, but cannot rule out early infection during which low or undetectable antibody levels to B. burgdorferi may be present. If clinically indicated, a new serum specimen should be submitted in 7-14 days. Test Performed by: [place] [address] [employer] Worker Helper: Hill Waggoner II, M.D., Ph.D. 7 Reference Range and Interpretation: TnI (ng/mL) Interpretation Less Than 0.03 ng/mL Not supportive of diagnosis of NH 0.03 - 0.50 ng/mL Indeterminate: suggest serial studies if clinically indicated. Greater than 0.5 ng/mL Consistent with diagnosis of NH 8 Desirable <150 Borderline high 150-199 High 200-499 Very High >500 9 Desirable <200 Borderline high 200-239 High >239 10 Low <40 Desirable: 40-60 High: >60 11 Desirable: <100 mg/dL Near Optimal: 100-129 mg/dL Borderline High: 130-159 mg/dL High: 160-189 mg/dL Very High: >189 mg/dL 12 Because ethnic data is not always readily available, this report includes an eGFR for both -Americans and non- Americans. The National Kidney Disease Education Program (NKDEP) does not endorse the use of the MDRD equation for patients that are not between the ages of 18 and 70, are , have extremes of body size, muscle mass, or nutritional status, or are non- or non-. According to the National Kidney Foundation, irrespective of diagnosis, the stage of the disease is based on the level of kidney function: Stage Description GFR(mL/min/1.73 m(2)) 1 Kidney damage with normal or decreased GFR 90 2 Kidney damage with mild decrease in GFR 60-89 3 Moderate decrease in GFR 30-59 4 Severe decrease in GFR 15-29 5 Kidney failure <15 (or dialysis) 13 Serum levels of PSA measured using the [employer] 60mo DXI Hybritech immunoassay should not be interpreted as absolute evidence of the presence or absence of disease. The PSA value should be used in conjunction with other pertinent clinical diagnostic procedures. The values obtained with different assay methods or kits cannot be used interchangeably. 14 Because ethnic data is not always readily available, this report includes an eGFR for both -Americans and non- Americans. The National Kidney Disease Education Program (NKDEP) does not endorse the use of the MDRD equation for patients that are not between the ages of 18 and 70, are , have extremes of body size, muscle mass, or nutritional status, or are non- or non-. According to the National Kidney Foundation, irrespective of diagnosis, the stage of the disease is based on the level of kidney function: Stage Description GFR(mL/min/1.73 m(2)) 1 Kidney damage with normal or decreased GFR 90 2 Kidney damage with mild decrease in GFR 60-89 3 Moderate decrease in GFR 30-59 4 Severe decrease in GFR 15-29 5 Kidney failure <15 (or dialysis) 15 Desirable <150 Borderline high 150-199 High 200-499 Very High >500 16 Desirable <200 Borderline high 200-239 High >239 17 Low <40 Desirable: 40-60 High: >60 18 Desirable: <100 mg/dL Near Optimal: 100-129 mg/dL Borderline High: 130-159 mg/dL High: 160-189 mg/dL Very High: >189 mg/dL 19 Acute inflammation: >10.00 20 Desirable <150 Borderline high 150-199 High 200-499 Very High >500 21 Desirable <200 Borderline high 200-239 High >239 22 Low <40 Desirable: 40-60 High: >60 23 Desirable <100 Near Optimal 100-129 Borderline high 130-159 High 160-189 Very High >189 24 Because ethnic data is not always readily available, this report includes an eGFR for both -Americans and non- Americans. The National Kidney Disease Education Program (NKDEP) does not endorse the use of the MDRD equation for patients that are not between the ages of 18 and 70, are , have extremes of body size, muscle mass, or nutritional status, or are non- or non-. According to the National Kidney Foundation, irrespective of diagnosis, the stage of the disease is based on the level of kidney function: Stage Description GFR(mL/min/1.73 m(2)) 1 Kidney damage with normal or decreased GFR 90 2 Kidney damage with mild decrease in GFR 60-89 3 Moderate decrease in GFR 30-59 4 Severe decrease in GFR 15-29 5 Kidney failure <15 (or dialysis) 25 Reference Range and Interpretation: TnI (ng/mL) Interpretation Less Than 0.03 ng/mL Not supportive of diagnosis of NH 0.03 - 0.50 ng/mL Indeterminate: suggest serial studies if clinically indicated. Greater than 0.5 ng/mL Consistent with diagnosis of NH 26 >100 to <200 pg/mL: likely compensated congestive heart failure (CHF) 200 to 400 pg/mL: likely moderate CHF >400 pg/mL: likely moderate to severe CHF [place] [facility] 27 Reference Range and Interpretation: TnI (ng/mL) Interpretation Less Than 0.03 ng/mL Not supportive of diagnosis of NH 0.03 - 0.50 ng/mL Indeterminate: suggest serial studies if clinically indicated. Greater than 0.5 ng/mL Consistent with diagnosis of NH 28 Because ethnic data is not always readily available, this report includes an eGFR for both -Americans and non- Americans. The National Kidney Disease Education Program (NKDEP) does not endorse the use of the MDRD equation for patients that are not between the ages of 18 and 70, are , have extremes of body size, muscle mass, or nutritional status, or are non- or non-. According to the National Kidney Foundation, irrespective of diagnosis, the stage of the disease is based on the level of kidney function: Stage Description GFR(mL/min/1.73 m(2)) 1 Kidney damage with normal or decreased GFR 90 2 Kidney damage with mild decrease in GFR 60-89 3 Moderate decrease in GFR 30-59 4 Severe decrease in GFR 15-29 5 Kidney failure <15 (or dialysis) 29 Because ethnic data is not always readily available, this report includes an eGFR for both -Americans and non- Americans. The National Kidney Disease Education Program (NKDEP) does not endorse the use of the MDRD equation for patients that are not between the ages of 18 and 70, are , have extremes of body size, muscle mass, or nutritional status, or are non- or non-. According to the National Kidney Foundation, irrespective of diagnosis, the stage of the disease is based on the level of kidney function: Stage Description GFR(mL/min/1.73 m(2)) 1 Kidney damage with normal or decreased GFR 90 2 Kidney damage with mild decrease in GFR 60-89 3 Moderate decrease in GFR 30-59 4 Severe decrease in GFR 15-29 5 Kidney failure <15 (or dialysis) 30 Reference Range and Interpretation: TnI (ng/mL) Interpretation Less Than 0.06 ng/mL Not supportive of diagnosis of NH 0.06 - 0.50 ng/mL Indeterminate: suggest serial studies if clinically indicated. Greater than 0.5 ng/mL Consistent with diagnosis of NH 31 Because ethnic data is not always readily available, this report includes an eGFR for both -Americans and non- Americans. The National Kidney Disease Education Program (NKDEP) does not endorse the use of the MDRD equation for patients that are not between the ages of 18 and 70, are , have extremes of body size, muscle mass, or nutritional status, or are non- or non-. According to the National Kidney Foundation, irrespective of diagnosis, the stage of the disease is based on the level of kidney function: Stage Description GFR(mL/min/1.73 m(2)) 1 Kidney damage with normal or decreased GFR 90 2 Kidney damage with mild decrease in GFR 60-89 3 Moderate decrease in GFR 30-59 4 Severe decrease in GFR 15-29 5 Kidney failure <15 (or dialysis) 32 Results suggest no prior exposure to Deisy-Franklin Virus. However, a second serum specimen should be tested in 10-14 days if clinically indicated. In most populations, at least 90% of the adult population will have been infected with EBV sometime in the past and therefore, will be positive for anti-VCA/IgG and anti- EBNA. Antibodies to EBNA develop 6-8 weeks after primary infection and remain present for life. Presence of VCA/ IgM antibodies indicates recent primary infection with EBV. Test Performed by: [facility] [facility] [place] [address] Switchboard Wire Worker Helper: Mc Arrington III, M.D. 33 RUN DATE: 04/05/13 [facility] LAB LIVE PAGE 1 RUN TIME: [address] [place] [id number] Specimen Inquiry Name: CHARLA FLEMING : [address]: Julio Cameron MD Acct: [id number] Unit: [id number] AGE: 43 Location: [facility] Re04/02/13 SEX: M Status: REG REF SPEC: [id number] SHARON: 04/02/13-[address] [facility] [address]: Julio Cameron MD REQ: [id number] RECD: 04/02/13-1536 STATUS: COMP _ SOURCE: THROAT SPDESC: ORDERED: Throat Culture QUERIES: Medent Number [id number] Procedure Result Verified Site Throat Culture Final 04/05/13- 932 ML Organism 1 NORMAL SHELBY Quantity 3+ END OF REPORT * ML=Testing performed at Main Lab DEPARTMENT OF PATHOLOGY, [facility] [employer] [place], [place] [address] Ismael Boland M.D. Director [facility] Permit #[id number] 34 Because ethnic data is not always readily available, this report includes an eGFR for both -Americans and non- Americans. The National Kidney Disease Education Program (NKDEP) does not endorse the use of the MDRD equation for patients that are not between the ages of 18 and 70, are , have extremes of body size, muscle mass, or nutritional status, or are non- or non-. According to the National Kidney Foundation, irrespective of diagnosis, the stage of the disease is based on the level of kidney function: Stage Description GFR(mL/min/1.73 m(2)) 1 Kidney damage with normal or decreased GFR 90 2 Kidney damage with mild decrease in GFR 60-89 3 Moderate decrease in GFR 30-59 4 Severe decrease in GFR 15-29 5 Kidney failure <15 (or dialysis) 35 RUN DATE: 08/02/12 [facility] LAB LIVE PAGE 1 RUN TIME: 1230 [facility] [employer] [place], [place] [address] Specimen Inquiry Name: CHARLA FLEMING Lalita : [address]: Ulises Mckee III, MD Acct: [id number] Unit: [id number] AGE: 42 Location: [facility] Re07/31/12 SEX: M Status: REG REF SPEC: [id number] SHARON: 07/31/12-[address]: Ulises Mckee III, MD REQ: [id number] RECD: 07/31/12 STATUS: COMP _ SOURCE: URINE SPDESC: ORDERED: Urine Culture COMMENTS: URINE QUERIES: Medent Number [id number] Procedure Result Verified Site Urine Culture Final 08/02/12- 1230 ML No Growth Day 2 (<1,000 CFU/mL) END OF REPORT * ML=Testing performed at Main Lab DEPARTMENT OF PATHOLOGY, [address] [place] [address] Ismael Boland M.D. Director [facility] Permit #[id number] CHOLESTEROL INTERPRETATION: Desirable: Less than 200 MG/DL Borderline-High Risk: 200-239 MG/DL High-Risk: 240 MG/DL and over 37 HDL INTERPRETATION: Undesirable: High Risk: Less than 40 MG/DL Desirable: Low Risk: Greater than 60 MG/DL 38 LDL INTERPRETATION: Low Risk Optimal Level: LDL Less than 100 MG/DL Near or Above Optimal: LDL 100-129 MG/DL Borderline High Risk: LDL 130-159 MG/DL High Risk: LDL 160-189 MG/DL Very High Risk: LDL Greater than 189 MG/DL 39 Anion gap measurement may be of limited value in the presence of any alkalosis, especially in a combined acid base disorder. . 40 Because ethnic data is not always readily available, this report includes an eGFR for both -Americans and non- Americans. The National Kidney Disease Education Program (NKDEP) does not endorse the use of the MDRD equation for patients that are not between the ages of 18 and 70, are , have extremes of body size, muscle mass, or nutritional status, or are non- or non-. According to the National Kidney Foundation, irrespective of diagnosis, the stage of the disease is based on the level of kidney function: Stage Description GFR(mL/min/1.73 m(2)) 1 Kidney damage with normal or decreased GFR 90 2 Kidney damage with mild decrease in GFR 60-89 3 Moderate decrease in GFR 30-59 4 Severe decrease in GFR 15-29 5 Kidney failure <15 (or dialysis) 41 Anion gap measurement may be of limited value in the presence of any alkalosis, especially in a combined acid base disorder. . 42 A metabolite of Naproxen, O-desmethylnaproxen, has been shown to interfere with the Jendrassik-Mulat method for measuring total bilirubin. Samples from patients who have taken Naproxen have shown spurious elevation in total bilirubin levels. 43 Because ethnic data is not always readily available, this report includes an eGFR for both -Americans and non- Americans. The National Kidney Disease Education Program (NKDEP) does not endorse the use of the MDRD equation for patients that are not between the ages of 18 and 70, are , have extremes of body size, muscle mass, or nutritional status, or are non- or non-. According to the National Kidney Foundation, irrespective of diagnosis, the stage of the disease is based on the level of kidney function: Stage Description GFR(mL/min/1.73 m(2)) 1 Kidney damage with normal or decreased GFR 90 2 Kidney damage with mild decrease in GFR 60-89 3 Moderate decrease in GFR 30-59 4 Severe decrease in GFR 15-29 5 Kidney failure <15 (or dialysis) 44 CHOLESTEROL INTERPRETATION: Desirable: Less than 200 MG/DL Borderline-High Risk: 200-239 MG/DL High-Risk: 240 MG/DL and over 45 HDL INTERPRETATION: Undesirable: High Risk: Less than 40 MG/DL Desirable: Low Risk: Greater than 60 MG/DL 46 LDL INTERPRETATION: Low Risk Optimal Level: LDL Less than 100 MG/DL Near or Above Optimal: LDL 100-129 MG/DL Borderline High Risk: LDL 130-159 MG/DL High Risk: LDL 160-189 MG/DL Very High Risk: LDL Greater than 189 MG/DL 47 . A negative result does not preclude the presence of a C.trachomatis or N.gonorrhoeae infection because results are dependent on adequate specimen collection, absence of inhibitors, and sufficient rRNA to be detected. Test results may be affected by improper specimen collection, improper specimen storage, technical error, or specimen mixup. . 48 . A negative result does not preclude the presence of a C.trachomatis or N.gonorrhoeae infection because results are dependent on adequate specimen collection, absence of inhibitors, and sufficient rRNA to be detected. Test results may be affected by improper specimen collection, improper specimen storage, technical error, or specimen mixup. . Procedures Date CPT Code Description Status 10/30/2013 10287 ECHO Stress Test Incl Perf Contiuous ekg Monitoring Completed W/Phys Superv 10/13/2001 Colonoscopy Completed Encounters Type Date Location Provider CPT E/M Dx Office Visit 09/22/2017 [facility] Ulises Mckee, 06004 R10.30 2:40p - Jimi Avilez Office Visit 09/01/2017 [facility] Hondo Rakesh, 77409 K29.00 9:40a - Milagro Hanley M.D. R19.7 G43.009 I10 Office Visit 07/19/2017 2:00p [facility] Ulises Mckee, 56591 M54.9 - Jimi Avilez Office Visit 04/18/2017 3:00p [facility] Ulises Mckee, 66262 Z00.00 - Jimi Avilez I10 R30.0 Office Visit 10/13/2016 10:00a [facility] Aleshia Mckee, 24791 I10 Jimi Avilez H61.23 Office Visit 08/11/2016 3:40p [facility] Medicine Ulises Mckee 61412 J06.9 - Jimi Avilez Office Visit 05/17/2016 11:00a [facility] Ulises Mckee 57615 R07.89 - Jimi Avilez R53.83 Office Visit 04/12/2016 10:40a [facility] Ulises Mckee 68904 Z00.00 - Sandip Avilez I10 R30.0 Office Visit 03/02/2016 9:40a [facility] [place] [address] H60.8x1 - Sandip Office Visit 02/13/2016 4:20p [facility] [place] [address] H60.8x1 - Sandip Office Visit 01/06/2016 11:20a [facility] Ulises Mckee 13373 I10 - Sandip Avilez Office Visit 12/12/2015 1:40p [facility] Melinda Tavarez M.D. 16674 J30.9 - [place] G44.209 I10 Office Visit 10/31/2015 10:00a [facility] Ulises Mckee, 37978 R10.30 - [place] M.D. Office Visit 10/08/2015 11:00a [facility] Ulises Mckee, 52805 I10 - [place] M.D. R10.30 Z23 Office Visit 04/07/2015 3:00p [facility] Ulises Mckee, 87449 V70.0 - [place] M.DAustin 401.1 788.1 Office Visit 01/20/2015 3:30p [facility] Internal [facility] [place] [address] 465.8 [place] 401.1 460 401.9 Office Visit 11/12/2014 11:40a [facility] Ulises Mckee, 50086 465.9 - [place] M.D. Office Visit 08/26/2014 3:40p [facility] Ulises Mckee, 72315 401.1 - [place] M.D. V04.81 Office Visit 02/19/2014 10:20a [facility] Ulises Mckee, 26825 V70.0 - [place] M.D. 401.1 780.79 Office Visit 04/02/2013 10:20a [facility] Julio Cameron M.D. 00689 462 - [place] 729.1 Office Visit 11/07/2012 1:40p [facility] Ulises Mckee, 79368 465.9 - [place] M.D. 401.1 Office Visit 10/16/2012 11:00a [facility] Internal [facility] Nurse Visit [place] 62020 401.1 - [place] Office Visit 09/13/2012 11:00a [facility] Ulises Mckee 97502 401.1 - [place] M.D. Office Visit 08/03/2012 11:20a [facility] Ulises Mckee 34675 789.09 - [place] M.D. 724.2 Office Visit 07/25/2012 11:40a [facility] Ulises Mckee, 44955 724.2 - Sandip Avilez 796.2 Office Visit 03/13/2012 11:00a [facility] Ulises Mckee, 66894 V70.0 - Sandip Avilez 401.1 Office Visit 10/13/2011 11:00a [facility] Ulises Mckee, 90091 796.2 - Sandip Avilez Office Visit 05/04/2011 2:00p DO Not Use [facility] Melinda Tavarez M.D. 87897 924.3 [facility] Office Visit 04/12/2011 10:20a DO Not Use [facility] Ulises Robinson Mckee, 68135 796.2 [facility] Avilez Office Visit 03/11/2011 1:40p DO Not Use [facility] Ulises Robinson Mckee, 72698 V70.0 [facility] Raghav 780.79 796.2 Office Visit 12/31/2009 9:40a DO Not Use [facility] Ulises Robinson Mckee, 63609 729.5 [facility] Meka.Eric Office Visit 07/21/2009 3:15p DO Not Use [facility] Ulises Robinson Mckee, 27843 487.1 [facility] Meka.Eric Office Visit 01/22/2009 3:45p [facility] Ulises Robinson Mckee, 20745 729.5 [facility].DAustin Office Visit 04/25/2008 10:45a [facility] Ulises Robinson Mckee, 07156 380.4 [facility] M.D. Office Visit 10/11/2007 11:30a [facility] Ulises Robinson Mckee, 96461 724.2 [facility] M.DAustin Office Visit 04/04/2007 11:15a [facility] Robinson Mckee, 90009 788.1 [facility].DAustin 709.4 Plan of Care Future Appointment(s):11/18/2017 10:20 am - Ulises Mckee M.D. at [facility] Internal Medicine - [place]65/21/2018 - Ulises Mckee M.D.M79.606 Pain in leg, unspecified
--- OUTSIDE RECORDS SUMMARY | 2017-10-30 15:43 | XMS REPORT ---
:1970 External Reference #:[id number] Author Organization [employer] Address [address] [address] Phone [phone] Care Team Providers Name Role Phone Ulises Mckee III, MD Primary Care Physician Unavailable Payers Type Date Identification Numbers Payment Provider Subscriber Commercial Policy Number: [id number] [facility] Charla Fleming PayID: [id number] [address] [address] ADRIANNE Silva [address] Medigap Part B Effective: [facility] [id number] Expires: 2012 PayID: [id number] [address] [address] ADRIANNE Bone [address] Medigap Part B Expires: 2010 Policy Number: [facility] Charla Fleming [id number] Care (Oon) Group Number: [id number] [address] PayID: [id number] [place] [address] Problems Date Description Provider Status Onset: 04/12/2011 [...] Mckee Chlorthalidone 09/13 Active Tablets 25mg 45tab 1/2 by mouth I10 Ulises Bowers s every day Raghav Mckee Aleve Active Tablets 220mg as needed Unknown /0000 Advil Active Tablets 200mg as needed Unknown /0000 Pantoprazole 09/[address] 40mg 30tab 1 in the s morning Rakesh barrow M.D. 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 1% 10ml 2 drops H60.8x1 Michael ike- affected ear Kennedy, [employer] - three times 02/23 a day x days Valsartan 01/05 Hx Tablets 80mg 90tab 1 by mouth I10 Ulises Bowers s every day Aleshia Mckee M.D. 04/18 Rhinocort Aqua 12/11 Hx Suspension 32mcg/Act 1unit spray 1 J30.9 Melinda s spray into [place] - each nostril Rahgav 01/05 once daily /2015 Clarinex 12/11 Hx Tablets 5mg 30tab 1 tab po J30.9 s everyday Aleshia Tavarez M.D. 01/05 Amlodipine 12/05 Hx Tablets 10mg 90tab 1 by mouth Ulises Pathakylate s every day - RyleeAleshia zelaya pt, M.D. 08/26 currently Lisinopril 10/25 Hx Tablets 10mg 90tab 1 po qd Ulises E. s Aleshia Mckee M.D. 12/05 Doxycycline 01/05 Hx Tablets 100mg 4tabs 2 tabs po x1 Ulises Robinson cl then prn Aleshia Mckee M.D. 03/13 Flexeril 10/11 Hx Tablets 10mg 30tab 1 po tid prn Ulises EAustin /2007 s back spasms Aleshia Mckee M.D. [...] CPT Code Status Date Vaccine Lot # [id number] Given 10/19/2017 Influenza Virus Vaccine, Quadrivalent, Split, [id number] Preservative Free [id number] Given 10/08/2015 Influenza Virus Vaccine, Quadrivalent, Split, [id number] Preservative Free 73870 Given 08/26/2014 Flu Vaccine Split Virus Preservative Free For [id number] Indiv 3Yr Older [id number] Given 06/13/2012 Fluzone Vaccine [id number] Given 06/04/2010 Tdap - Tetanus/Diptheria/Acellular Pertussis 10024 Given 03/15/2002 Td (History By Patient) 21475 Given Unknown Tetanus And Diptheria (Td) For Adult Use Preservative Free Vital Signs Date Vital Result Comment 10/19/2017 Weight 198.00 lb Heart Rate 80 [...] 2 finding Ua Routine 07/19/2017 Ua Specific [place] 1.010 Ua PH 7 Ua Color Yellow [...] Color Yellow Urine Appearance Clear Urine Specific [place] 1.010 1.010-1.030 Urine pH 7.0 5-9 Urine [...] Color Yellow Urine Appearance Clear Urine Specific [place] 1.015 1.010-1.030 Urine Esterase Negative Negative Urine [...] Color Yellow Urine Appearance Clear Urine Specific [place] 1.009 Low 1.010-1.030 Urine Esterase 1+ Negative [...] Eosinophils 0.1 0-0.6 Abs Basophils 0 0-0.2 Gcchlu 04/05/2007 CHL On Urine NEGATIVE Negative 47 GC On Urine NEGATIVE Negative 48 1 [id number] 2 SEE RESULT BELOW Name: CHARLA FLEMING : [address]: Julio Cameron MD Acct: [id number] Unit: [id number] AGE: 47 Location: [facility] Re09/01/17 SEX: M Status: REG REF SPEC: [id number] SHARON: 09/01/17-[address] [facility] [address]: Julio Cameron MD REQ: [id number] RECD: 09/01/17 STATUS: COMP _ SOURCE: STOOL SPDESC: ORDERED: C. diff PCR COMMENTS: [id number] Procedure Result Reported Site Stool Specimen Description Final 09/02/17- 0902 ML Stool Color Brown Stool Form Formed Stool Consistency Firm C. difficile PCR Final 09/01/17- 1941 ML Organism 1 027 Presumptive NEGATIVE Organism 2 Toxigenic C.diff NEGATIVE * ML - MAIN LAB ([facility]) . END OF REPORT * ML=Testing performed at Main Lab DEPARTMENT OF PATHOLOGY, [address] [place] [address] Ismael Boland M.D. Director [facility] # [id number] 3 Because ethnic data is not always [...] levels of PSA measured using the [employer] DXI Hybritech immunoassay should not be interpreted [...] submitted in 7-14 days. Test Performed by: [address] [address] Bookstore Manager: Hill Waggoner II, M.D., Ph.D. 7 Reference Range and Interpretation: TnI (ng/mL) Interpretation Less Than 0.03 ng/mL Not supportive of diagnosis of NE 0.03 - 0.50 ng/mL Indeterminate: suggest serial studies if clinically indicated. Greater than 0.5 ng/mL Consistent with diagnosis of NE 8 Desirable <150 Borderline high 150-199 High [...] Serum levels of PSA measured using the [employer] DXI Hybritech immunoassay should not be interpreted [...] 0.03 ng/mL Not supportive of diagnosis of NE 0.03 - 0.50 ng/mL Indeterminate: suggest serial studies if clinically indicated. Greater than 0.5 ng/mL Consistent with diagnosis of NE 26 >100 to <200 pg/mL: likely compensated congestive heart failure (CHF) 200 to 400 pg/mL: likely moderate CHF >400 pg/mL: likely moderate to severe CHF [facility] 27 Reference Range and Interpretation: TnI (ng/mL) Interpretation Less Than 0.03 ng/mL Not supportive of diagnosis of NE 0.03 - 0.50 ng/mL Indeterminate: suggest serial studies if clinically indicated. Greater than 0.5 ng/mL Consistent with diagnosis of NE 28 Because ethnic data is not always [...] 0.06 ng/mL Not supportive of diagnosis of NE 0.06 - 0.50 ng/mL Indeterminate: suggest serial studies if clinically indicated. Greater than 0.5 ng/mL Consistent with diagnosis of NE 31 Because ethnic data is not always [...] primary infection with EBV. Test Performed by: [facility] [employer] [address] [address] Bookstore Manager: Mc Arrington III, M.D. 33 RUN DATE: 04/05/13 [facility] LAB LIVE PAGE 1 RUN TIME: [address] [place] [address] Specimen Inquiry Name: CHARLA FLEMING Lalita : [address]: Julio Cameron MD Acct: [id number] Unit: [id number] AGE: 43 Location: [facility] Re04/02/13 SEX: M Status: REG REF SPEC: [id number] SHARON: 04/02/13-[address]: Julio Cameron MD REQ: [id number] RECD: 04/02/13 STATUS: COMP _ SOURCE: THROAT SPDESC: ORDERED: Throat Culture QUERIES: [employer] Number [id number] Procedure Result Verified Site Throat Culture Final 04/05/13- 932 ML Organism 1 NORMAL SHELBY Quantity 3+ END OF REPORT * ML=Testing performed at Main Lab DEPARTMENT OF PATHOLOGY, [facility] [employer], [place] [address] Ismael Boland M.D. Director [facility] Permit #[id number] 34 Because ethnic data is not always [...] <15 (or dialysis) 35 RUN DATE: 08/02/12 [facility] LAB LIVE PAGE 1 RUN TIME: 1230 [facility] [employer] [place], [place] [address] Specimen Inquiry Name: CHARLA FLEMING : [address]: Ulises Mckee III, MD Acct: [id number] Unit: [id number] AGE: 42 Location: [facility] Re07/31/12 SEX: M Status: REG REF SPEC: [id number] SHARON: 07/31/12-[address]: Ulises Mckee III, MD REQ: [id number] RECD: 07/31/12 STATUS: COMP _ SOURCE: URINE SPDESC: ORDERED: Urine Culture COMMENTS: URINE QUERIES: [employer] Number [id number] Procedure Result Verified Site Urine Culture Final 08/02/12- 1230 ML No Growth Day 2 (<1,000 CFU/mL) END OF REPORT * ML=Testing performed at Main Lab DEPARTMENT OF PATHOLOGY, [address] [place] [address] Ismael Boland M.D. Director [facility] Permit #[id number] CHOLESTEROL INTERPRETATION: Desirable: Less than 200 [...] has been shown to interfere with the Jendrassik-Bithlo method for measuring total bilirubin. Samples from [...] Procedures Date CPT Code Description Status 10/30/2013 01145 ECHO Stress Test Incl Perf Contiuous ekg Monitoring Completed W/Phys Superv 10/13/2001 Colonoscopy Completed Encounters Type Date Location Provider CPT E/M Dx Office Visit 09/22/2017 [facility] Ulises Mckee, [address]1039 R10.30 2:40p - Jimi Avilez Office Visit 09/01/2017 [facility] Julio Cameron, 00022 K29.00 9:40a - Tbdandre Hanley M.D. R19.7 G43.009 I10 Office Visit 07/19/2017 2:00p [facility] Ulises Mckee, 67960 M54.9 - Jimi Avilez Office Visit 04/18/2017 3:00p [facility] Ulises Mckee, 78705 Z00.00 - Jimi Avilez I10 R30.0 Office Visit 10/13/2016 10:00a [facility] - Ulises Mckee, 65717 I10 Jimi Avilez H61.23 Office Visit 08/11/2016 3:40p [facility] Ulises Mckee, 34503 J06.9 - Jimi Avilez Office Visit 05/17/2016 11:00a [facility] Ulises Mckee, 69014 R07.89 - Jimi Avilez R53.83 Office Visit 04/12/2016 10:40a [facility] Ulises Mckee, 47750 Z00.00 - Sandip Avilez I10 R30.0 Office Visit 03/02/2016 9:40a [facility] [place] [address] H60.8x1 - [place] Office Visit 02/13/2016 4:20p [facility] [place] [address] H60.8x1 - [place] Office Visit 01/06/2016 11:20a [facility] Ulises Mckee, 82086 I10 - Sandip Avilez Office Visit 12/12/2015 1:40p [facility] Melinda Tavarez M.D. 34644 J30.9 - [place] G44.209 I10 Office Visit 10/31/2015 10:00a [facility] Ulises Mckee, 98698 R10.30 - [place] M.D. Office Visit 10/08/2015 11:00a [facility] Ulises Mckee, 55568 I10 - [place] M.D. R10.30 Z23 Office Visit 04/07/2015 3:00p [facility] Ulises Mckee, 16125 V70.0 - [place] M.D. 401.1 788.1 Office Visit 01/20/2015 3:30p [facility] [place] [address] 465.8 [place] 401.1 460 401.9 Office Visit 11/12/2014 11:40a [facility] Ulises Mckee, 16867 465.9 - [place] M.D. Office Visit 08/26/2014 3:40p [facility] Ulises Mckee, 88733 401.1 - [place] M.D. V04.81 Office Visit 02/19/2014 10:20a [facility] Ulises Mckee, 15763 V70.0 - [place] M.DAustin 401.1 780.79 Office Visit 04/02/2013 10:20a [facility] Julio Cameron M.D. 39060 462 - [place] 729.1 Office Visit 11/07/2012 1:40p [facility] Ulises Mckee, 94160 465.9 - [place] M.D. 401.1 Office Visit 10/16/2012 11:00a [facility] Nurse Visit [place] [address] 401.1 - [place] Office Visit 09/13/2012 11:00a [facility] Ulises Mckee, 66876 401.1 - [place] M.D. Office Visit 08/03/2012 11:20a [facility] Ulises Mckee, 11230 789.09 - [place] M.D. 724.2 Office Visit 07/25/2012 11:40a [facility] Ulises Mckee, 69072 724.2 - [place] M.D. 796.2 Office Visit 03/13/2012 11:00a [facility] Ulises Mckee, 30490 V70.0 - [place] M.D. 401.1 Office Visit 10/13/2011 11:00a [facility] [place], [address] 796.2 - Sandip Avilez Office Visit 05/04/2011 2:00p DO Not Use [facility] Melinda Tavarez M.D. 47415 924.3 [facility] Office Visit 04/12/2011 10:20a DO Not Use [facility], [address]40[address] 796.2 [facility] 03/11/2011 1:40p DO Not Use [facility], [address]696 V70.0 [facility]79 796.2 Office Visit 12/31/2009 9:40a DO Not Use [facility], 68898 729.5 [facility] 07/21/2009 3:15p DO Not Use [facility], 93128 487.1 [facility] 01/22/2009 3:45p [facility], 39628 729.5 [facility] Office Visit 04/25/2008 10:45a [facility], 28019 380.4 [facility]. Office Visit 10/11/2007 11:30a [facility], [address] 724.2 [facility] 04/04/2007 11:15a [facility], [address]59[address] 788.1 [facility] 709.4 Plan of Care Future Appointment(s):11/18/2017 10:20 am - Ulises Mckee M.D. at [facility] - Qvlrxfuvk90/14/2018 - Ulises Mckee M.D.I10 Essential ( primary) hypertensionNew Labs:Basic Metabolic PanelComments:Home BPs all elevated on current Rx; increase Chlorthalidone to 25 mg daily and continue diet , weight control efforts. Recheck BMP on new Rx after at least 2 weeks. Recheck with home BPs in 1 monthFollow up:4 [id number] Encounter for immunization
[2017-10-30 16:21] VITALS: BP 165/97
--- NOTE | 2017-10-30 16:37 | ED ---
Sydni Elizabeth Jason, scribed for Hill Marin MD on 10/30/17 at 1608 . HPI Chest Pain - HPI Summary HPI Summary: This patient is a 47 year old M presenting to [facility] with a chief complaint of left sided Chest Pain since 2 days ago. The patient states Im feeling weak and am experiencing chest and arm pains. I might have hurt myself on Tuesday and am not sure if the pain is a pectoral, bicep or tricep issue. Also My doctor increased my blood pressure medication 6 days ago. He describes the pain location in the left pectoral and down the bicep and tricep, and states the pain is mild and sometimes I dont feel it as it lasts only for a few minutes. The patient rates the pain 5/10 in severity. Symptoms aggravated by ambulation. Symptoms alleviated by arm movement. Patient reports coughing, chills, lightheadedness, mild back pain, almost nauseous, general weakness where my legs feel heavy. Patient denies rhinorrhea, fever, SOB, and skin diaphoresis. - History of Current Complaint Time Seen by Provider: 10/30/17 15:55 Hx Obtained From: Patient Onset/Duration: Started Days Ago - 2 days ago, Still Present Timing: Constant Pain Intensity: 5 Pain Scale Used: 0-10 Numeric Aggravating Factor(s): Nothing Alleviating Factor(s): Nothing Associated Signs and Symptoms: Positive: Other: - Patient reports coughing, chills, lightheadedness, almost nauseous, general weakness where my legs feel heavy. Patient denies rhinorrhea, fever, SOB, and skin diaphoresis. - Allergy/Home Medications Allergies/Adverse Reactions: Allergies Allergy/AdvReac Type Severity Reaction Status Date / Time nitroglycerin AdvReac See Comment Verified 10/30/17 16:22 Home Medications: Home Medications Valsartan TAB* [Diovan TAB*] 160 mg PO DAILY 10/30/17 [History Confirmed ] PMH/Surg Hx/FS Hx/Imm Hx Previously Healthy: No Cardiovascular History: Reports: Hx Hypertension History: Denies: Hx Kidney Stones - Surgical History Surgery Procedure, Year, and Place: HERNIA SX A CHILD, EAR SX A CHILD Infectious Disease History: Denies: Traveled Outside the [place] in Last 30 Days - Family History Known Family History: Positive: Diabetes - Social History Alcohol Use: Weekly Substance Use Type: Reports: None Smoking Status (MU): Never Smoked Tobacco Review of Systems Positive: Chills. Negative: Fever, Skin Diaphoresis ENT: Negative - rhinorrhea Positive: Chest Pain - left pectoral down to left bicep and tricep Negative: Shortness Of Breath Positive: Other - "almost nauseous" Positive: Other - mild back pain Neurological: Other - lightheadedness Positive: Weakness - general weakness where "my legs feel heavy" All Other Systems Reviewed And Are Negative: Yes Physical Exam - Summary Physical Exam Summary: General: well-appearing, no pain distress Skin: warm, color reflects adequate perfusion, dry Head: normal Eyes: EOMI, HOLA ENT: normal Neck: supple, nontender Respiratory: CTA, breath sounds present Cardiovascular: RRR Abdomen: soft, nontender Bowel: present Musculoskeletal: normal, strength/ROM intact Neurological: normal, sensory/motor intact, A&O x3 Psychological: affect/mood appropriate Triage Information Reviewed: Yes Vital Signs On Initial Exam: Initial Vitals Temp Pulse Resp BP Pulse Ox 98.8 F 86 18 165/97 98 10/30/17 16:16 10/30/17 16:16 10/30/17 16:16 10/30/17 16:16 10/30/17 16:16 Vital Signs Reviewed: Yes Diagnostics - Vital Signs Vital Signs Temp Pulse Resp BP Pulse Ox 10/30/17 16:16 98.8 F 86 18 165/97 98 - Laboratory Lab Statement: Any lab studies that have been ordered have been reviewed, and results considered in the medical decision making process. - EKG 1556 Cardiac Rate: NL EKG Rhythm: Sinus Rhythm - 86 bpm EKG Interpretation: RBBB,flattened T wave in lead 3, and a concave up ST elevation in V2 & V3 EKG Comparison: Other - When compared with an EKG from 05/04/2016, the flattened T wave in lead 3 is new. Chest Pain Course/Dx - Course Course Of Treatment: An EKG reveals normal sinus rhythm at 86 bpm, RBBB, a flattened T wave in lead 3, and a concave up ST elevation in V2 and V3. When compared with an EKG from 05/04/2016, the flattened T wave in lead 3 is new. BP noted and advised to follow up with PCP. Medications reviewed. Allergies noted. DISCUSSED THE NEED FOR LAB WORK TO INCLUDE A TROPONIN FOR FURTHER EVALUATION AND RECOMMENDED FURTHER EVALUATION IN ED. PATIENT DECLINED AMBULANCE TRANSPORT, WILL GO BY POV. NURSING SPOKE WITH ED CHARGE NURSE ABOUT THE PATIENT. - Diagnoses Provider Diagnoses: HTN (hypertension), Chest pain Discharge - Discharge Plan Condition: Stable Disposition: HOME Patient Education Materials: Chest Pain (ED) Referrals: Ulises Mckee MD [Primary Care Provider] - Additional Instructions: GO DIRECTLY TO THE EMERGENCY DEPARTMENT FOR FURTHER EVALUATION OF YOUR CHEST PAIN AND WEAKNESS. YOUR BLOOD PRESSURE WAS ELEVATED DURING TODAY'S VISIT; FOLLOW UP WITH YOUR PCP WITHIN ONE WEEK FOR FURTHER EVALUATION. Your blood pressure was elevated during todays visit; please follow up with your primary care provider within a week for further evaluation. The documentation as recorded by the Sydni lee Jason accurately reflects the service I personally performed and the decisions made by me, Hill Marin MD.
== END 2017-10-30 16:22 | disposition home or self-care (01) ==
LOC: UCEAST 15:34
DX: R07.89 Other chest pain (principal); I10 Essential (primary) hypertension; R68.83 Chills (without fever); M54.6 Pain in thoracic spine; R42 Dizziness and giddiness; R53.1 Weakness; I45.10 Unspecified right bundle-branch block; Z88.8 Allergy status to other drugs, medicaments and biological substances
CPT/HCPCS: 93005; 99202; G0463

== ENCOUNTER 2017-10-30 16:50 | Emergency (ER) | payer BC ==
[2017-10-30 17:41] LABS: ABS Basophils 0.1 10^3/ul (0-0.2); ABS Eosinophils 0.1 10^3/ul (0-0.6); ABS Lymphocytes 1.2 10^3/ul (1.0-4.8); ABS Monocytes 0.4 10^3/ul (0-0.8); ABS Neutrophils 3.8 10^3/ul (1.5-7.7); ABS Nucleated RBC 0 10^3/ul; Eosinophil % 1.7 % (0-6); Hematocrit 40 % (42-52); Hemoglobin 13.7 g/dl (14.0-18.0); Lymphocyte % 21.3 % (25-47); Mean Corpuscular HGB Conc 35 g/dl (31-36); Mean Corpuscular Hemoglobin 30 pg (27-31); Mean Corpuscular Volume 87 fL (80-94); Mean Platelet Volume 8 um3 (7.4-10.4); Nucleated Red Blood Cells % 0.1; Platelet Count 211 10^3/ul (150-450); Red Blood Count 4.52 10^6/ul (4.0-5.4); Red Cell Distribution Width 14 % (10.5-15); White Blood Count 5.6 10^3/ul (3.5-10.8)
[2017-10-30 17:56] LABS: EGFR Non-African American 69.6 (>60)
--- NOTE | 2017-10-30 18:03 | RAD ---
Indication: Chest pain. Single frontal view of the chest performed at 1730 hours was reviewed. Comparison is made with previous exam dated May 04, 2016. No mediastinal shift is noted. Heart is of normal size and configuration. Lung yeager appear clear. IMPRESSION: NO ACTIVE CARDIOPULMONARY DISEASE IS NOTED.
[2017-10-30 22:57] VITALS: BP 166/99
--- NOTE | 2017-10-31 08:21 | ED ---
Elidia Elizabeth Thomas, scribed for Phillip Benitez MD on 10/30/17 at 1718 . HPI Chest Pain - HPI Summary HPI Summary: The patient is a 47 year old male complaining of episodes of chest pain for the last few days. He has mild pain in the emergency department and he describes it as pressure. The episodes last between a few seconds and two minutes. The patient additionally complains of episodes of generalized weakness that are sometimes aligned with the episodes of chest pain. He also complains of some lightheadedness and lower back pain. The patient denies shortness of breath, nausea, vomiting, and diaphoresis. He last had a stress test four years ago. His blood pressure medication Chlorthalidone was increased about two weeks ago. - History of Current Complaint Chief Complaint: EDChestPainROMI Time Seen by Provider: 10/30/17 17:02 Hx Obtained From: Patient Onset/Duration: Started Days Ago, Still Present Timing: Lasting Seconds, Lasting Minutes Current Severity: Mild Pain Intensity: 3 Pain Scale Used: 0-10 Numeric Character: Pressure/Squeezing Aggravating Factor(s): Nothing Alleviating Factor(s): Nothing Associated Signs and Symptoms: Positive: Chest Pain, Other: - Generalized weakness, lightheadedness, lower back pain, chest pain; NEGATIVE: SOB, N/V, diaphoresis. Negative: Fever - Allergy/Home Medications Allergies/Adverse Reactions: Allergies Allergy/AdvReac Type Severity Reaction Status Date / Time nitroglycerin AdvReac See Comment Verified 10/30/17 17:05 PMH/Surg Hx/FS Hx/Imm Hx Endocrine/Hematology History: Denies: Hx Diabetes Cardiovascular History: Reports: Hx Hypertension History: Denies: Hx Kidney Stones - Surgical History Surgery Procedure, Year, and Place: HERNIA SX A CHILD, EAR SX A CHILD Infectious Disease History: No Infectious Disease History: Denies: Traveled Outside the [place] in Last 30 Days - Family History Known Family History: Positive: Diabetes - Social History Alcohol Use: Weekly Alcohol Amount: 5-6 beers week Substance Use Type: Reports: None Smoking Status (MU): Never Smoked Tobacco Review of Systems Positive: Other - Generalized weakness. Negative: Fever, Skin Diaphoresis Positive: Chest Pain Negative: Shortness Of Breath Negative: Vomiting, Nausea Positive: Other - Lower back pain Neurological: Other - Lightheadedness All Other Systems Reviewed And Are Negative: Yes Physical Exam - Summary Physical Exam Summary: Appearance: The patient is well-nourished in no acute distress and in no acute pain. Skin: The skin is warm and dry and skin color reflects adequate perfusion. HEENT: The head is normocephalic and atraumatic. The pupils are equal and reactive. The conjunctivae are clear and without drainage. Nares are patent and without drainage. Mouth reveals moist mucous membranes and the throat is without erythema and exudate. The external ears are intact. The ear canals are patent and without drainage. The tympanic membranes are intact. Neck: the neck is supple with full range of motion and non-tender. There are no carotid bruits. There is no neck vein distension. Respiratory: Chest is non-tender. Lungs are clear to auscultation and breath sounds are symmetrical and equal. Cardiovascular: Heart is regular rate and rhythm.~There is no murmur or rub auscultated.~There is no peripheral edema and pulses are symmetrical and equal. Abdomen: The abdomen is soft and non-tender. There are normal bowel sounds heard in all four quadrants and there is no organomegaly palpated. Musculoskeletal: There is no back tenderness noted. Extremities are non-tender with full range of motion. There is good capillary refill. There is no peripheral edema or calf tenderness elicited. Neurological: Patient is alert and oriented to person, place and time. The patient has symmetrical motor strength in all four extremities. Cranial nerves are grossly intact. Deep tendon reflexes are symmetrical and equal in all four extremities. Psychiatric: The patient has an appropriate affect and does not exhibit any anxiety or depression. Triage Information Reviewed: Yes Vital Signs On Initial Exam: Initial Vitals Temp Pulse Resp BP Pulse Ox 97.8 F 85 17 166/104 100 10/30/17 16:56 10/30/17 16:56 10/30/17 16:56 10/30/17 16:56 10/30/17 16:56 Vital Signs Reviewed: Yes Diagnostics - Vital Signs Vital Signs Temp Pulse Resp BP Pulse Ox 10/30/17 17:08 104 100 10/30/17 17:07 186/105 10/30/17 16:56 97.8 F 85 17 166/104 100 - Laboratory Lab Results: Lab Results 10/30/17 10/30/17 10/30/17 Range/Units 17:30 17:30 17:30 WBC 5.6 (3.5-10.8) 10^3/ul RBC 4.52 (4.0-5.4) 10^6/ul Hgb 13.7 L (14.0-18.0) g/dl Hct 40 L (42-52) % MCV 87 (80-94) fL MCH 30 (27-31) pg MCHC 35 (31-36) g/dl RDW 14 (10.5-15) % Plt Count 211 (150-450) 10^3/ul MPV 8 (7.4-10.4) um3 Neut % (Auto) 67.9 (38-83) % Lymph % (Auto) 21.3 L (25-47) % Rincon % (Auto) 7.9 H (0-7) % Eos % (Auto) 1.7 (0-6) % Baso % (Auto) 1.2 (0-2) % Absolute Neuts (auto) 3.8 (1.5-7.7) 10^3/ul Absolute Lymphs (auto) 1.2 (1.0-4.8) 10^3/ul Absolute Monos (auto) 0.4 (0-0.8) 10^3/ul Absolute Eos (auto) 0.1 (0-0.6) 10^3/ul Absolute Basos (auto) 0.1 (0-0.2) 10^3/ul Absolute Nucleated RBC 0 10^3/ul Nucleated RBC % 0.1 D-Dimer, Quantitative < 200 (Less Than 230) ng/mL Sodium 140 (133-145) mmol/L Potassium 3.5 (3.5-5.0) mmol/L Chloride 104 (101-111) mmol/L Carbon Dioxide 31 (22-32) mmol/L Anion Gap 5 (2-11) mmol/L BUN 17 (6-24) mg/dL Creatinine 1.13 (0.67-1.17) mg/dL Est GFR ( Amer) 89.5 (>60) Est GFR (Non-Af Amer) 69.6 (>60) BUN/Creatinine Ratio 15.0 (8-20) Glucose 106 H (70-100) mg/dL Lactic Acid (0.5-2.0) mmol/L Calcium 9.4 (8.6-10.3) mg/dL Total Bilirubin 0.50 (0.2-1.0) mg/dL AST 18 (13-39) U/L ALT 22 (7-52) U/L Alkaline Phosphatase 64 (34-104) U/L Troponin I 0.00 (<0.04) ng/mL Total Protein 6.8 (6.4-8.9) g/dL Albumin 4.3 (3.2-5.2) g/dL Globulin 2.5 (2-4) g/dL Albumin/Globulin Ratio 1.7 (1-3) 10/30/17 10/30/17 Range/Units 17:30 20:11 WBC (3.5-10.8) 10^3/ul RBC (4.0-5.4) 10^6/ul Hgb (14.0-18.0) g/dl Hct (42-52) % MCV (80-94) fL MCH (27-31) pg MCHC (31-36) g/dl RDW (10.5-15) % Plt Count (150-450) 10^3/ul MPV (7.4-10.4) um3 Neut % (Auto) (38-83) % Lymph % (Auto) (25-47) % Rin[place] % (Auto) (0-7) % Eos % (Auto) (0-6) % Baso % (Auto) (0-2) % Absolute Neuts (auto) (1.5-7.7) 10^3/ul Absolute Lymphs (auto) (1.0-4.8) 10^3/ul Absolute Monos (auto) (0-0.8) 10^3/ul Absolute Eos (auto) (0-0.6) 10^3/ul Absolute Basos (auto) (0-0.2) 10^3/ul Absolute Nucleated RBC 10^3/ul Nucleated RBC % D-Dimer, Quantitative (Less Than 230) ng/mL Sodium (133-145) mmol/L Potassium (3.5-5.0) mmol/L Chloride (101-111) mmol/L Carbon Dioxide (22-32) mmol/L Anion Gap (2-11) mmol/L BUN (6-24) mg/dL Creatinine (0.67-1.17) mg/dL Est GFR ( Amer) (>60) Est GFR (Non-Af Amer) (>60) BUN/Creatinine Ratio (8-20) Glucose (70-100) mg/dL Lactic Acid 1.1 (0.5-2.0) mmol/L Calcium (8.6-10.3) mg/dL Total Bilirubin (0.2-1.0) mg/dL AST (13-39) U/L ALT (7-52) U/L Alkaline Phosphatase (34-104) U/L Troponin I 0.01 (<0.04) ng/mL Total Protein (6.4-8.9) g/dL Albumin (3.2-5.2) g/dL Globulin (2-4) g/dL Albumin/Globulin Ratio (1-3) Result Diagrams: 10/30/17 17:30 10/30/17 17:30 Lab Statement: Any lab studies that have been ordered have been reviewed, and results considered in the medical decision making process. - Radiology CXR Xray Interpretation: No Acute Changes - NO ACTIVE CARDIOPULMONARY DISEASE IS NOTED. Dr. Benitez has reviewed this report and agrees. Radiology Interpretation Completed By: Radiologist - EKG 16:56 Cardiac Rate: NL EKG Rhythm: Sinus Rhythm - at 84 BPM EKG Interpretation: Incomplete RBBB. Unchanged from 05/04/16 Chest Pain Course/Dx - Course Course Of Treatment: Mr. Fleming presented with a new atypical chest pain that has been on and off for a couple days. He was transferred from [facility] where an ECG had shown slight nonspecific changes. ECG here was unchanged from previous ECGs in April. His lab work up was negative including a d-dimer and two troponins. I recommended close F/U with his PMD to consider further W/U. - Diagnoses Provider Diagnoses: Chest pain Discharge - Discharge Plan Condition: Stable Disposition: HOME Patient Education Materials: Chest Pain (ED) Referrals: Ulises Mckee MD [Primary Care Provider] - 3 Days Additional Instructions: Follow up with your primary care physician in three days. Return to the emergency department for any new or worsening symptoms. The documentation as recorded by the Elidia lee Thomas accurately reflects the service I personally performed and the decisions made by , Phillip Benitez MD.
== END 2017-10-30 22:55 | disposition home or self-care (01) ==
LOC: ED 16:50
DX: R07.9 Chest pain, unspecified (principal); R07.89 Other chest pain; I10 Essential (primary) hypertension; I45.10 Unspecified right bundle-branch block
CPT/HCPCS: 36415; 71045; 80053; 83605; 84484; 85025; 85379; 93005; 99284

== ENCOUNTER 2017-11-13 11:47 | Emergency (ER) | payer BC ==
[2017-11-13] MEDS ORDERED: Aspirin Low Dose CHEW TAB* 81 MG PO ONE (12:00)
--- NOTE | 2017-11-13 12:18 | RAD ---
HISTORY: Chest pain COMPARISONS: October 30, 2017 VIEWS: 1: frontal portable view of the chest at 12:10 PM FINDINGS: LINES AND TUBES: None. CARDIOMEDIASTINAL SILHOUETTE: The cardiomediastinal silhouette is normal for portable technique. PLEURA: The costophrenic angles are sharp. No pleural abnormalities are noted. LUNG PARENCHYMA: The lungs are clear. ABDOMEN: The upper abdomen is clear. There is no subphrenic gas. BONES AND SOFT TISSUES: No bone or soft tissue abnormalities are noted. IMPRESSION: NO ACTIVE CARDIOPULMONARY DISEASE.
[2017-11-13 12:20] LABS: ABS Basophils 0 10^3/ul (0-0.2); ABS Eosinophils 0 10^3/ul (0-0.6); ABS Lymphocytes 0.9 10^3/ul (1.0-4.8); ABS Monocytes 0.3 10^3/ul (0-0.8); ABS Neutrophils 5.3 10^3/ul (1.5-7.7); ABS Nucleated RBC 0 10^3/ul; Eosinophil % 0.6 % (0-6); Hematocrit 42 % (42-52); Hemoglobin 14.4 g/dl (14.0-18.0); Lymphocyte % 13.3 % (25-47); Mean Corpuscular HGB Conc 34 g/dl (31-36); Mean Corpuscular Hemoglobin 30 pg (27-31); Mean Corpuscular Volume 87 fL (80-94); Mean Platelet Volume 7 um3 (7.4-10.4); Nucleated Red Blood Cells % 0; Platelet Count 204 10^3/ul (150-450); Red Cell Distribution Width 13 % (10.5-15); White Blood Count 6.6 10^3/ul (3.5-10.8)
--- OUTSIDE RECORDS SUMMARY | 2017-11-13 12:43 | XMS REPORT ---
:1970 External Reference #:[id number] Author Organization [place] Address [address] [address] Phone [phone] Care Team Providers Name Role Phone Ulises Mckee III, MD Primary Care Physician Unavailable Payers Type Date Identification Numbers Payment Provider Subscriber Commercial Policy Number: [id number] [facility] Charla Fleming PayID: [id number] [address] [address] ADRIANNE Silva [address] Medigap Part B Effective: [facility] 2010 [id number] Expires: 2012 PayID: [id number] [address] [address] ADRIANNE Bone [address] Medigap Part B Expires: 2010 Policy Number: [facility] Charla Fleming [id number] Care (Oon) Group Number: [id number] [address] PayID: [id number] [place] [address] Problems Date Description Provider Status Onset: 04/12/2011 Elevated blood-pressure reading Ulises Mckee M.D. Active without diagnosis of hypertension Onset: 03/13/2012 Benign essential hypertension Ulises Mkcee M.D. Active Onset: 04/02/2013 Acute pharyngitis Julio [...] Form Strength Qnty SIG Indications Ordering Provider Amlodipine 11/02 Active Tablets 10mg 90tab 1 by mouth I10 Ulises E. Besylate s every day Raghav Mckee Sumatriptan 09/01 Active Tablets 100mg 9tabs use at onset G43.009 [place] Succinate of head mariza Calix M.D. repeat after 2h as needed Valsartan 04/18 Active Tablets 160mg 90tab 1 by mouth I10 Ulises E. s every day Raghav Mckee Aleve Active Tablets 220mg as needed Unknown /0000 Advil Active Tablets 200mg as needed Unknown /0000 Emergen-C Active Packet as needed Unknown Vitamin C Lite /0000 Pantoprazole 09/[address] 40mg 30tab 1 in the [place] Sodium s morning Rakesh barrow M.D. 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 1% 10ml 2 drops H60.8x1 Michale ike- affected ear Kennedy, [employer] - three times 02/23 a day x days Valsartan 01/05 Hx Tablets 80mg 90tab 1 by mouth I10 Ulises E. s every day Aleshia Mckee M.D. 04/18 Rhinocort Aqua 12/11 Hx Suspension 32mcg/Act 1unit spray 1 J30.9 s spray into [place], - each nostril Raghav 01/05 once daily Clarinex 12/11 Hx Tablets 5mg 30tab 1 tab po J30.9 s everyday Aleshia Tavarez M.D. 01/05 Amlodipine 12/05 Hx Tablets 10mg 90tab 1 by mouth Ulises E. Besylate s every day - Rylee - pt dane Avilez 08/26 currently Lisinopril 10/25 Hx Tablets 10mg 90tab 1 po qd Ulises Bowers s Aleshia Mckee M.D. 12/05 Chlorthalidone 09/13 Hx Tablets 25mg 45tab 1 tab by I10 Ulises Bowers s mouth every Rylee, - kenneth Avilez 11/02 Doxycycline 01/05 Hx Tablets 100mg 4tabs 2 tabs po x1 Ulises Bowers Hyclate /2011 then prn Aleshia Mckee M.D. 03/13 Flexeril 10/11 Hx Tablets 10mg 30tab 1 po tid prn Ulises Bowers /2007 s back spasms Aleshia Mckee M.D. 04/25 Tylenol/Codeine 10/11 Hx Tablets #3 30tab 1-2 q 6 Ulises EAustin #3 s hours po qhs Aleshia Mckee M.D. 04/25 Aleve 00 Hx Tablets 220mg prn Unknown /0000 - 09/13 Celebrex 00 Hx Capsules 200mg 30cap 1 po qd Unknown /0000 s - 09/13 Chlorhexidine Hx Solution 0.12% 15 Unknown Gluconate /0000 milliliters - swish/spit 01/20 twice a day /2014 Immunizations CPT Code Status Date Vaccine Lot # [id number] Given 10/19/2017 Influenza Virus Vaccine, Quadrivalent, Split, [id number] Preservative Free 67903 Given 10/08/2015 Influenza Virus Vaccine, Quadrivalent, Split, [id number] Preservative Free 10964 Given 08/26/2014 Flu Vaccine Split Virus Preservative Free For [id number] Indiv 3Yr Older [id number] Given 06/13/2012 Fluzone Vaccine [id number] Given 06/04/2010 Tdap - Tetanus/Diptheria/Acellular Pertussis 66350 Given 03/15/2002 Td (History By Patient) 18674 Given Unknown Tetanus And Diptheria (Td) For Adult Use Preservative Free Vital Signs Date Vital Result Comment 11/02/2017 Weight 193.00 lb Heart Rate 73 /min BP Systolic 150 mmHg Left arm sitting BP Diastolic 112 mmHg Left arm sitting BP Systolic Sitting 150 mmHg Right arm BP Diastolic Sitting 120 mmHg Right arm Body Temperature 97.3 F O2 % BldC Oximetry 98 % 10/26/2017 Weight 196.00 lb Heart Rate 86 [...] Test Result H/L Range Note Laboratory test 10/30/2017 Troponin-I (TnI) 0.01 ng/mL <0.04 finding Laboratory test 09/01/2017 C Difficile PCR SEE RESULT BELOW 1, 2 finding Ua Routine 07/19/2017 Ua Specific [place] 1.010 Ua PH 7 Ua Color Yellow [...] Color Yellow Urine Appearance Clear Urine Specific [place] 1.010 1.010-1.030 Urine pH 7.0 5-9 Urine Urobilinogen Negative Negative Urine Ketones Negative Negative Urine Protein Negative Negative Urine Leukocytes Negative Negative Urine Blood Negative Negative Urine Nitrite Negative Negative Urine Bilirubin Negative Negative Urine Glucose Negative Negative Laboratory test finding 10/08/2015 PSA Diagnostic 4.026 ng/mL High 0- 4.000 13 Lipid Profile (Trig/Chol/HDL) 02/12/2015 Triglycerides 114 mg/dL 14 Cholesterol 174 mg/dL 15 HDL Cholesterol 42.3 mg/dL 16 LDL Cholesterol 109 mg/dL 17 Comp Metabolic Panel 02/12/2015 Sodium 139 mmol/L [...] Egfr Non- 67.1 >60 Egfr 86.2 >60 18 CBC Auto Diff 02/19/2014 White Blood [...] >60 Egfr 78.2 >60 24 Laboratory test 10/25/2013 Troponin I 0.01 ng/mL <0.03 25 finding Laboratory test 10/25/2013 Troponin I < 0.01 ng/mL <0.03 26 finding CKMB 10/25/2013 CKMB ng/mL 5.3 ng/mL 0.6-6.3 Laboratory test 10/25/2013 Activated Partial 31.5 seconds 24.0-36.1 finding Thrombo Time Inr/Protime 10/25/2013 Inr 0.91 0.85-1.06 Comp Metabolic Panel 10/25/2013 Sodium 140 mmol/L [...] Egfr Non- 64.8 >60 Egfr 83.4 >60 27 CBC Auto Diff 10/25/2013 White Blood Count [...] Red Blood Cells % 0.1 Laboratory test 10/25/2013 Creatine Kinase 202 U/L 10-223 finding Laboratory test 10/25/2013 B Type Natriuretic 16 pg/mL 28 finding Peptide CBC Auto Diff 07/02/2013 White Blood Count [...] Blood Cells % 0.1 Laboratory test finding 07/02/2013 Lipase 38 U/L 22-51 Troponin I 0 ng/mL 0-0.06 29 C Reactive Protein 0.7 mg/dL High Less than 0.5 Urinalysis 07/02/2013 Urine Color Yellow Urine Appearance Clear Urine Specific [place] 1.015 1.010-1.030 Urine Esterase Negative Negative Urine Nitrate Negative Negative Urine Urobilinogen Negative E.U./dL Negative Urine Protein Negative mg/dL Negative Urine pH 7.5 5-9 Urine Blood Negative Negative Urine Ketones Negative mg/dL Negative Urine Bilirubin Negative Negative Urine Glucose Negative mg/dL Negative Comp Metabolic Panel 07/02/2013 Sodium 138 mmol/L [...] Egfr Non- 73.1 >60 Egfr 94.0 >60 30 CBC Auto Diff 04/02/2013 White Blood Count [...] Negative Negative Deisy-Frank[place] Virus Interp See Comment 31 Manual Differential 04/02/2013 Neutrophil % 65 % 38-83 Band % 2 % 0-8 Lymphocytes % 23 % Low 25-47 Monocytes % 7 % 0-13 Eosinophils % 3 % 0-6 RBC Morphology Normal Normal Laboratory test finding 04/02/2013 Throat Culture (SEE NOTE) 32 Laboratory test finding 04/02/2013 Rapid Strep A negative Comp Metabolic Panel 04/02/2013 Sodium 139 mmol/L [...] Egfr Non- 66.1 >60 Egfr 85.0 >60 33 Basic Metabolic Panel 10/12/2012 Sodium 140 mmol/L [...] Color Yellow Urine Appearance Clear Urine Specific [place] 1.009 Low 1.010-1.030 Urine Esterase 1+ Negative [...] GC On Urine NEGATIVE Negative 48 1 [id number] 2 SEE RESULT BELOW Name: KSENIACHARLA : [address]: Julio Cameron MD Acct: [id number] Unit: [id number] AGE: 47 Location: [facility] Re09/01/17 SEX: M Status: REG REF SPEC: [id number] SHARON: 09/01/17-[address]: Julio Cameron MD REQ: [id number] RECD: 09/01/17 STATUS: COMP _ SOURCE: STOOL SPDESC: ORDERED: Amira velasquez PCR COMMENTS: [id number] Procedure Result Reported Site Stool Specimen Description Final 09/02/17- 0902 ML Stool Color Brown Stool Form Formed Stool Consistency Firm C. difficile PCR Final 09/01/17- 1942 ML Organism 1 027 Presumptive NEGATIVE Organism 2 Toxigenic C.diff NEGATIVE * ML - MAIN LAB ([facility]) . END OF REPORT * ML=Testing performed at Main Lab DEPARTMENT OF PATHOLOGY, [address] [place] [address] Ismael Boland M.D. Director [facility] # [id number] 3 Because ethnic data is not always [...] levels of PSA measured using the [employer] DXI Hybritech immunoassay should not be interpreted [...] submitted in 7-14 days. Test Performed by: [place] [address] [employer] Professional: Hill Waggoner II, M.D., Ph.D. 7 Reference Range and Interpretation: TnI (ng/mL) Interpretation Less Than 0.03 ng/mL Not supportive of diagnosis of MD 0.03 - 0.50 ng/mL Indeterminate: suggest serial studies if clinically indicated. Greater than 0.5 ng/mL Consistent with diagnosis of MD 8 Desirable <150 Borderline high 150-199 High [...] Serum levels of PSA measured using the [place] DXI Hybritech immunoassay should not be interpreted as absolute evidence of the presence or absence of disease. The PSA value should be used in conjunction with other pertinent clinical diagnostic procedures. The values obtained with different assay methods or kits cannot be used interchangeably. 14 Desirable <150 Borderline high 150-199 High 200-499 Very High >500 15 Desirable <200 Borderline high 200-239 High >239 16 Low <40 Desirable: 40-60 High: >60 17 Desirable: <100 mg/dL Near Optimal: 100-129 mg/dL Borderline High: 130-159 mg/dL High: 160-189 mg/dL Very High: >189 mg/dL 18 Because ethnic data is not always readily [...] 15-29 5 Kidney failure <15 (or dialysis) 19 Acute inflammation: >10.00 20 Desirable <150 [...] 0.03 ng/mL Not supportive of diagnosis of MD 0.03 - 0.50 ng/mL Indeterminate: suggest serial studies if clinically indicated. Greater than 0.5 ng/mL Consistent with diagnosis of MD 26 Reference Range and Interpretation: TnI (ng/mL) Interpretation Less Than 0.03 ng/mL Not supportive of diagnosis of MD 0.03 - 0.50 ng/mL Indeterminate: suggest serial studies if clinically indicated. Greater than 0.5 ng/mL Consistent with diagnosis of MD 27 Because ethnic data is not always readily [...] 15-29 5 Kidney failure <15 (or dialysis) 28 >100 to <200 pg/mL: likely compensated congestive heart failure (CHF) 200 to 400 pg/mL: likely moderate CHF >400 pg/mL: likely moderate to severe CHF [place] [facility] 29 Reference Range and Interpretation: TnI (ng/mL) Interpretation Less Than 0.06 ng/mL Not supportive of diagnosis of MD 0.06 - 0.50 ng/mL Indeterminate: suggest serial studies if clinically indicated. Greater than 0.5 ng/mL Consistent with diagnosis of MD 30 Because ethnic data is not always readily [...] 15-29 5 Kidney failure <15 (or dialysis) 31 Results suggest no prior exposure to Deisy-Franklin [...] primary infection with EBV. Test Performed by: [address] [address] Tennis Professional: Mc Arrington III, M.D. 32 RUN DATE: 04/05/13 [facility] LAB LIVE PAGE 1 RUN TIME: [address], [place], [place] [address] Specimen Inquiry Name: GALAKLEVERCHARLA : [address]: Julio Cameron MD Acct: [id number] Unit: [id number] AGE: 43 Location: [facility] Re04/02/13 SEX: M Status: REG REF SPEC: [id number] SHARON: 04/02/13-[address] [facility] [address]: Julio Cameron MD REQ: [id number] RECD: 04/02/13 STATUS: COMP _ SOURCE: THROAT SPDESC: ORDERED: Throat Culture QUERIES: Medent Number [id number] Procedure Result Verified Site Throat Culture Final 04/05/13- 932 ML Organism 1 NORMAL SHELBY Quantity 3+ END OF REPORT * ML=Testing performed at Main Lab DEPARTMENT OF PATHOLOGY, [address] [place] [address] Ismael Boland M.D. Director [facility] Permit #[id number] 33 Because ethnic data is not always readily [...] 15-29 5 Kidney failure <15 (or dialysis) 34 Because ethnic data is not always [...] <15 (or dialysis) 35 RUN DATE: 08/02/12 [facility] LAB LIVE PAGE 1 RUN TIME: [address] [place] [address] Specimen Inquiry Name: CHARLA FLEMING : [address]: Ulises Mckee III, MD Acct: [id number] Unit: [id number] AGE: 42 Location: [facility] Re07/31/12 SEX: M Status: REG REF SPEC: [id number] SHARON: 07/31/12-[address] [facility] [address]: Ulises Mckee III, MD REQ: [id number] RECD: 07/31/12 STATUS: COMP _ SOURCE: URINE SPDESC: ORDERED: Urine Culture COMMENTS: URINE QUERIES: Medent Number [id number] Procedure Result Verified Site Urine Culture Final 08/02/12- 1230 ML No Growth Day 2 (<1,000 CFU/mL) END OF REPORT * ML=Testing performed at Main Lab DEPARTMENT OF PATHOLOGY, [address] [place] [address] Ismael Boland M.D. Director [facility] Permit #[id number] CHOLESTEROL INTERPRETATION: Desirable: Less than 200 [...] has been shown to interfere with the [place] method for measuring total bilirubin. Samples from [...] Procedures Date CPT Code Description Status 10/30/2013 82084 ECHO Stress Test Incl Perf Contiuous ekg Monitoring Completed W/Phys Superv 10/13/2001 Colonoscopy Completed Encounters Type Date Location Provider CPT E/M Dx Office Visit 10/26/2017 [facility] Medicine Ulises Mckee, 77895 M79.606 1:00p - Jimi Avilez Office Visit 10/19/2017 [facility] Ulises Mckee, 50304 I10 2:20p - Jimi Avilez Z23 Office Visit 09/22/2017 2:40p [facility] Ulises Mckee, 97169 R10.30 - Jimi Avilez Office Visit 09/01/2017 9:40a [facility] Julio Cameron, 39240 K29.00 - Milagro Hanley M.D. R19.7 G43.009 I10 Office Visit 07/19/2017 2:00p [facility] Medicine Ulises Mckee, 40287 M54.9 - Jimi Avilez Office Visit 04/18/2017 3:00p [facility] Medicine Ulises Mckee, 95829 Z00.00 - Jimi Avilez I10 R30.0 Office Visit 10/13/2016 10:00a [facility] Internal [facility] Aleshia Mckee, 86098 I10 Jimi Avilez H61.23 Office Visit 08/11/2016 3:40p [facility] Medicine Ulises Mckee, 14368 J06.9 - Arrowjacy Avilez Office Visit 05/17/2016 11:00a [facility] Medicine Ulises Mckee, 95673 R07.89 - Arrowjacy Avilez R53.83 Office Visit 04/12/2016 10:40a [facility] Ulises Mckee, 02359 Z00.00 - Sandip Avilez I10 R30.0 Office Visit 03/02/2016 9:40a [facility] [place] [address] H60.8x1 - [place] Office Visit 02/13/2016 4:20p [facility] [place] [address] H60.8x1 - [place] Office Visit 01/06/2016 11:20a [facility] Ulises Mckee, 59988 I10 - Sandip Avilez Office Visit 12/12/2015 1:40p [facility] Melinda Tavarez M.D. 43003 J30.9 - [place] G44.209 I10 Office Visit 10/31/2015 10:00a [facility] Ulises Mckee, 14532 R10.30 - Sandip Avilez Office Visit 10/08/2015 11:00a [facility] Medicine Ulises Mckee, 96031 I10 - Sandip Avilez R10.30 Z23 Office Visit 04/07/2015 3:00p [facility] Ulises Mckee, 46231 V70.0 - Sandip Avilez 401.1 788.1 Office Visit 01/20/2015 3:30p [facility] Internal [facility] [place] [address] 465.8 [place] 401.1 460 401.9 Office Visit 11/12/2014 11:40a [facility] Ulises Mckee, 99709 465.9 - [place] Raghav Office Visit 08/26/2014 3:40p [facility] Ulises Mckee, 60707 401.1 - [place] M.Eric V04.81 Office Visit 02/19/2014 10:20a [facility] Ulises Mckee, 51768 V70.0 - Sandip Avilez 401.1 780.79 Office Visit 04/02/2013 10:20a [facility] Julio Cameron M.D. 74045 462 - [place] 729.1 Office Visit 11/07/2012 1:40p [facility] Ulises Mckee, 67208 465.9 - Sandip Avilez 401.1 Office Visit 10/16/2012 11:00a [facility] Nurse Visit [place] [address] 401.1 - [place] Office Visit 09/13/2012 11:00a [facility] Ulises Mckee, 04914 401.1 - Sandip Avilez Office Visit 08/03/2012 11:20a [facility] Ulises Mckee, 30276 789.09 - Sandip Avilez 724.2 Office Visit 07/25/2012 11:40a [facility] Ulises Mckee, 21709 724.2 - Sandip Avilez 796.2 Office Visit 03/13/2012 11:00a [facility] Ulises Mckee, 62734 V70.0 - Sandip Avilez 401.1 Office Visit 10/13/2011 11:00a [facility] Ulises Mckee, 90564 796.2 - Sandip Avilez Office Visit 05/04/2011 2:00p DO Not Use [facility] Melinda Tavarez M.D. 77907 924.3 [place] Office Visit 04/12/2011 10:20a DO Not Use [facility] Ulises Mckee, 63691 796.2 Annamaria Avilez Office Visit 03/11/2011 1:40p DO Not Use [facility] Ulises Mckee, 20810 V70.0 Annamaria Avilez 780.79 796.2 Office Visit 12/31/2009 9:40a DO Not Use [facility] Ulises Mckee, 49358 729.5 Annamaria Avilez Office Visit 07/21/2009 3:15p DO Not Use [facility] Ulises Mckee, 49618 487.1 Annamaria Avilez Office Visit 01/22/2009 3:45p [facility] Ulises Mckee, 34385 729.5 [facility] M.D. Office Visit 04/25/2008 10:45a [facility], 66845 380.4 [facility] M.D. Office Visit 10/11/2007 11:30a [facility], 85611 724.2 [facility] M.D. Office Visit 04/04/2007 11:15a [facility], 19997 788.1 [facility] M.DAustin 709.4 Plan of Care Future Appointment(s):11/30/2017 2:20 pm - Ulises Mckee M.D. at [facility] Internal Medicine - Xcizqyubh73/28/2018 - Ulises Mckee M.D.R07.9 Chest pain , vykfzzvnuinT12 Essential (primary) hypertensionNew Medication:Amlodipine Besylate 10 mgR53.83 Other fatigueNew Orders:Overnight Oximetry
--- OUTSIDE RECORDS SUMMARY | 2017-11-13 12:44 | XMS REPORT ---
:1970 External Reference #:[id number] Author Organization [employer] Address [address] [address] Phone [phone] Care Team Providers Name Role Phone Ulises Mckee III, MD Primary Care Physician Unavailable Payers Type Date Identification Numbers Payment Provider Subscriber Commercial Policy Number: [id number] [facility] Charla Fleming PayID: [id number] [address] [address] ADRIANNE Silva [address] Medigap Part B Effective: [facility] 2010 [id number] Expires: 2012 PayID: [id number] [address] [address] ADRIANNE Bone [address] Medigap Part B Expires: 2010 Policy Number: [facility] Charla Fleming [id number] Care (Oon) Group Number: [id number] [address] PayID: [id number] [place] [address] Problems Date Description Provider Status Onset: 04/12/2011 [...] Tablets 100mg 9tabs use at onset G43.009 Cannon Succinate of head mariza Calix M.D. repeat [...] Tablets DR 40mg 30tab 1 in the Cannon Sodium s morning Rakesh barrow M.D. 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 1% 10ml 2 drops H60.8x1 Michael ike- affected ear Kennedy, UTILITY CLERK - three times 02/23 a day x [...] CPT Code Status Date Vaccine Lot # [id number] Given 10/19/2017 Influenza Virus Vaccine, Quadrivalent, Split, [id number] Preservative Free 77985 Given 10/08/2015 Influenza Virus Vaccine, Quadrivalent, Split, [id number] Preservative Free 94638 Given 08/26/2014 Flu Vaccine Split Virus Preservative Free For [id number] Indiv 3Yr Older Q2038 Given 06/13/2012 Fluzone Vaccine [id number] [id number] Given 06/04/2010 Tdap - Tetanus/Diptheria/Acellular Pertussis 58243 Given 03/15/2002 Td (History By Patient) 62579 Given Unknown Tetanus And Diptheria (Td) For [...] 2 finding Ua Routine 07/19/2017 Ua Specific Galien 1.010 Ua PH 7 Ua Color Yellow [...] Color Yellow Urine Appearance Clear Urine Specific Galien 1.010 1.010-1.030 Urine pH 7.0 5-9 Urine [...] Color Yellow Urine Appearance Clear Urine Specific Galien 1.015 1.010-1.030 Urine Esterase Negative Negative Urine [...] Color Yellow Urine Appearance Clear Urine Specific Galien 1.009 Low 1.010-1.030 Urine Esterase 1+ Negative [...] GC On Urine NEGATIVE Negative 48 1 [id number] 2 SEE RESULT BELOW Name: KSENIACHARLA : [address]: Julio Cameron MD Acct: [id number] Unit: [id number] AGE: 47 Location: [facility] Re09/01/17 SEX: M Status: REG REF SPEC: [id number] SHARON: 09/01/17-[address]: Julio Cameron MD REQ: [id number] RECD: 09/01/17 STATUS: COMP _ SOURCE: STOOL SPDESC: ORDERED: Amira velasquez PCR COMMENTS: [id number] Procedure Result Reported Site Stool Specimen Description Final 09/02/17- 0902 ML Stool Color Brown Stool Form Formed Stool Consistency Firm C. difficile PCR Final 09/01/17- 1942 ML Organism 1 027 Presumptive NEGATIVE Organism 2 Toxigenic C.diff NEGATIVE * ML - MAIN LAB ([facility]) . END OF REPORT * ML=Testing performed at Main Lab DEPARTMENT OF PATHOLOGY, [address] [place] [address] Ismael Boland M.D. Director [facility] # [id number] 3 Because ethnic data is not always [...] levels of PSA measured using the [facility] DXI Hybritech immunoassay should not be interpreted [...] submitted in 7-14 days. Test Performed by: [place] [address] Front Desk Officer: Hill Waggoner II, M.D., Ph.D. 7 Reference Range and Interpretation: TnI (ng/mL) Interpretation Less Than 0.03 ng/mL Not supportive of diagnosis of UT 0.03 - 0.50 ng/mL Indeterminate: suggest serial studies if clinically indicated. Greater than 0.5 ng/mL Consistent with diagnosis of [place] 8 Desirable <150 Borderline high 150-199 High [...] Serum levels of PSA measured using the [employer] DXI Hybritech immunoassay should not be interpreted [...] 0.03 ng/mL Not supportive of diagnosis of UT 0.03 - 0.50 ng/mL Indeterminate: suggest serial studies if clinically indicated. Greater than 0.5 ng/mL Consistent with diagnosis of [place] 26 Reference Range and Interpretation: TnI (ng/mL) Interpretation Less Than 0.03 ng/mL Not supportive of diagnosis of UT 0.03 - 0.50 ng/mL Indeterminate: suggest serial studies if clinically indicated. Greater than 0.5 ng/mL Consistent with diagnosis of [place] 27 Because ethnic data is not always [...] 0.06 ng/mL Not supportive of diagnosis of UT 0.06 - 0.50 ng/mL Indeterminate: suggest serial studies if clinically indicated. Greater than 0.5 ng/mL Consistent with diagnosis of [place] 30 Because ethnic data is not always [...] primary infection with EBV. Test Performed by: [address] [address] Front Desk Officer: Mc Arrington III, M.D. 32 RUN DATE: 04/05/13 [facility] LAB LIVE PAGE 1 RUN TIME: [address], [place], [place] [address] Specimen Inquiry Name: GALAKLEVERCHARLA : [address]: Julio Cameron MD Acct: [id number] Unit: [id number] AGE: 43 Location: [facility] Re04/02/13 SEX: M Status: REG REF SPEC: [id number] SHARON: 04/02/13-1114 [facility] DR: Julio Cameron MD REQ: [id number] RECD: 04/02/13 STATUS: COMP _ SOURCE: THROAT SPDESC: ORDERED: Throat Culture QUERIES: Medent Number [id number] Procedure Result Verified Site Throat Culture Final 04/05/13- 932 ML Organism 1 NORMAL SHELBY Quantity 3+ END OF REPORT * ML=Testing performed at Main Lab DEPARTMENT OF PATHOLOGY, [address] [place] [address] Ismael Boland M.D. Director [facility] Permit #[id number] 33 Because ethnic data is not always [...] <15 (or dialysis) 35 RUN DATE: 08/02/12 [facility] LAB LIVE PAGE 1 RUN TIME: [address] [place] [address] Specimen Inquiry Name: CHARLA FLEMING : [address]: Ulises Mckee III, MD Acct: [id number] Unit: [id number] AGE: 42 Location: [facility] Re07/31/12 SEX: M Status: REG REF SPEC: [id number] SHARON: 07/31/12-0 [facility] DR: Ulises Mckee III, MD REQ: [id number] RECD: 07/31/12 STATUS: COMP _ SOURCE: URINE SPDESC: ORDERED: Urine Culture COMMENTS: URINE QUERIES: Medent Number [id number] Procedure Result Verified Site Urine Culture Final 08/02/12- 1230 ML No Growth Day 2 (<1,000 CFU/mL) END OF REPORT * ML=Testing performed at Main Lab DEPARTMENT OF PATHOLOGY, [address] [place] [address] Ismael Boland M.D. Director [facility] Permit #[id number] CHOLESTEROL INTERPRETATION: Desirable: Less than 200 [...] has been shown to interfere with the [place] method for measuring total bilirubin. Samples from [...] Procedures Date CPT Code Description Status 10/30/2013 14593 ECHO Stress Test Incl Perf Contiuous ekg Monitoring Completed W/Phys Superv 10/13/2001 Colonoscopy Completed Encounters Type Date Location Provider CPT E/M Dx Office Visit 10/26/2017 [facility] Ulises Mckee, 07779 M79.606 1:00p - Jimi Avilez Office Visit 10/19/2017 [facility] Ulises Mckee, 61754 I10 2:20p - Jimi Avilez Z23 Office Visit 09/22/2017 2:40p [facility] Ulises Mckee, 74405 R10.30 - Jimi Avilez Office Visit 09/01/2017 9:40a [facility] Julio Cameron, 84247 K29.00 - Milagro Hanley M.D. R19.7 G43.009 I10 Office Visit 07/19/2017 2:00p [facility] Ulises Mckee, 53962 M54.9 - Jimi Avilez Office Visit 04/18/2017 3:00p [facility] Ulises Mckee, 75619 Z00.00 - Jimi Avilez I10 R30.0 Office Visit 10/13/2016 10:00a [facility] Aleshia Mckee, 24257 I10 Jimi Avilez H61.23 Office Visit 08/11/2016 3:40p [facility] Ulises Mckee, 94114 J06.9 - Arrowjacy Avilez Office Visit 05/17/2016 11:00a [facility] Ulises Mckee, 07755 R07.89 - Arrowjacy Avilez R53.83 Office Visit 04/12/2016 10:40a [facility] Ulises Mckee, 10497 Z00.00 - Sandip Avilez I10 R30.0 Office Visit 03/02/2016 9:40a [facility] [place] [address] H60.8x1 - [place] Office Visit 02/13/2016 4:20p [facility] [place] [address] H60.8x1 - [place] Office Visit 01/06/2016 11:20a [facility] Ulises Mckee, 49175 I10 - Sandip Avilez Office Visit 12/12/2015 1:40p [facility] Melinda Tavarez M.D. 20547 J30.9 - [place] G44.209 I10 Office Visit 10/31/2015 10:00a [facility] Ulises Mckee, 82354 R10.30 - Sandip Avilez Office Visit 10/08/2015 11:00a [facility] Ulises Mckee, 47150 I10 - Sandip Avilez R10.30 Z23 Office Visit 04/07/2015 3:00p [facility] Ulises Mckee, 08370 V70.0 - Sandip Avilez 401.1 788.1 Office Visit 01/20/2015 3:30p [facility] [place] [address] 465.8 [place] 401.1 460 401.9 Office Visit 11/12/2014 11:40a [facility] Ulises Mckee, 78135 465.9 - [place] Raghav Office Visit 08/26/2014 3:40p [facility] Ulises Mckee, 92906 401.1 - [place] M.Eric V04.81 Office Visit 02/19/2014 10:20a [facility] Ulises Mckee, 77915 V70.0 - Sandip Avilez 401.1 780.79 Office Visit 04/02/2013 10:20a [facility] Julio Cameron M.D. 58393 462 - [place] 729.1 Office Visit 11/07/2012 1:40p [facility] Ulises Mckee, 11532 465.9 - Sandip Avilez 401.1 Office Visit 10/16/2012 11:00a [facility] Nurse Visit [place] 66518 401.1 - [place] Office Visit 09/13/2012 11:00a [facility] Ulises Mckee, 31315 401.1 - Sandip Avilez Office Visit 08/03/2012 11:20a [facility] Ulises Mckee, 75080 789.09 - Sandip Avilez 724.2 Office Visit 07/25/2012 11:40a [facility] Ulises Mckee, 44963 724.2 - Sandip Avilez 796.2 Office Visit 03/13/2012 11:00a [facility] Ulises Mckee, 53120 V70.0 - Sandip Avilez 401.1 Office Visit 10/13/2011 11:00a [facility] Ulises Mckee, 92158 796.2 - Sandip Avilez Office Visit 05/04/2011 2:00p DO Not Use [facility] Melinda Tavarez M.D. 05030 924.3 [facility] Office Visit 04/12/2011 10:20a DO Not Use [facility] Ulises Mckee, 61372 796.2 Annamaria Avilez Office Visit 03/11/2011 1:40p DO Not Use [facility] Ulises Mckee, 80092 V70.0 Annamaria Avilez 780.79 796.2 Office Visit 12/31/2009 9:40a DO Not Use [facility] Ulises Mckee, 14838 729.5 Annamaria Avilez Office Visit 07/21/2009 3:15p DO Not Use [facility] Ulises Mckee, 88668 487.1 Annamaria Avilez Office Visit 01/22/2009 3:45p [facility] Ulises Mckee, 80812 729.5 [facility] M.D. Office Visit 04/25/2008 10:45a [facility], 42330 380.4 [facility] M.D. Office Visit 10/11/2007 11:30a [facility], 63430 724.2 [facility] M.D. Office Visit 04/04/2007 11:15a [facility], 15401 788.1 [facility] M.DAustin 709.4 Plan of Care Future Appointment(s):11/18/2017 10:20 am - Ulises Mckee M.D. at [facility] - Xoyndkmmx42/28/2018 - Ulises Mckee M.D.R07.9 Chest pain , [id number] Essential (primary) hypertensionNew Medication:Amlodipine Besylate 10 mgR53.83 Other fatigueNew Orders:Overnight Oximetry
[2017-11-13 12:47] LABS: EGFR Non-African American 65.5 (>60)
[2017-11-13 13:14] LABS: Urine Appearance Clear; Urine Blood Negative (Negative); Urine Color Straw; Urine Ketones Negative (Negative); Urine Protein Negative (Negative); Urine Specific Gravity 1.005 (1.010-1.030); Urine Urobilinogen Negative (Negative)
[2017-11-13 16:09] VITALS: BP 146/91
--- NOTE | 2017-11-13 18:27 | ED ---
Casper Elizabeth Gabriel, scribed for Ulises Johnson MD on 11/13/17 at 1220 . HPI Chest Pain - HPI Summary HPI Summary: This patient is a 47 year old M presenting to [facility] with a chief complaint of intermittent left sided chest pain that began over two weeks ago. The patient rates the pain 1/10 in severity and states it radiates into his left arm. Symptoms are not aggravated by exertion. He also reports having some GERD and an occasional sore taste in his mouth. Currently the patient is asymptomatic. He was seen in the ED 2 weeks ago for the same symptoms. - History of Current Complaint Chief Complaint: EDChestPainROMI Time Seen by Provider: 11/13/17 11:58 Hx Obtained From: Patient Onset/Duration: Started Weeks Ago, Still Present Timing: Intermittent Initial Severity: Mild Current Severity: None Pain Intensity: 1 Pain Scale Used: 0-10 Numeric Chest Pain Location: Left Anterior Associated Signs and Symptoms: Positive: Other: - GERD and sore taste in mouth - Allergy/Home Medications Allergies/Adverse Reactions: Allergies Allergy/AdvReac Type Severity Reaction Status Date / Time nitroglycerin AdvReac See Comment Verified 10/30/17 17:05 PMH/Surg Hx/FS Hx/Imm Hx Endocrine/Hematology History: Denies: Hx Diabetes Cardiovascular History: Reports: Hx Hypertension GI History: Reports: Hx Gastroesophageal Reflux Disease History: Denies: Hx Kidney Stones Musculoskeletal History: Denies: Hx Rheumatoid Arthritis - Surgical History Surgery Procedure, Year, and Place: HERNIA SX A CHILD, EAR SX A CHILD Infectious Disease History: No Infectious Disease History: Denies: Traveled Outside the [place] in Last 30 Days - Family History Known Family History: Positive: Diabetes - Social History Alcohol Use: Weekly Alcohol Amount: 5-6 beers week Substance Use Type: Reports: None Smoking Status (MU): Never Smoked Tobacco Review of Systems Positive: Chest Pain Gastrointestinal: Other - GERD and sore mouth taste All Other Systems Reviewed And Are Negative: Yes Physical Exam - Summary Physical Exam Summary: VITAL SIGNS: Reviewed. GENERAL: Patient is a well-developed and nourished male who is lying comfortable in the stretcher. Patient is not in any acute respiratory distress. HEAD AND FACE: No signs of trauma. No ecchymosis, hematomas or skull depressions. No sinus tenderness. EYES: PERRLA, EOMI x 2, No injected conjunctiva, no nystagmus. EARS: Hearing grossly intact. Ear canals and tympanic membranes are within normal limits. MOUTH: Oropharynx within normal limits. NECK: Supple, trachea is midline, no adenopathy, no JVD, no carotid bruit, no c- spine tenderness, neck with full ROM. CHEST: Symmetric, no tenderness at palpation LUNGS: Clear to auscultation bilaterally. No wheezing or crackles. CVS: Regular rate and rhythm, S1 and S2 present, no murmurs or gallops appreciated. ABDOMEN: Soft, non-tender. No signs of distention. No rebound no guarding, and no masses palpated. Bowel sounds are normal. EXTREMITIES: FROM in all major joints, no edema, no cyanosis or clubbing. NEURO: Alert and oriented x 3. No acute neurological deficits. Speech is normal and follows commands. SKIN: Dry and warm Triage Information Reviewed: Yes Vital Signs On Initial Exam: Initial Vitals Temp Pulse Resp BP Pulse Ox 98.0 F 82 16 138/82 98 11/13/17 11:50 11/13/17 11:50 11/13/17 11:50 11/13/17 11:50 11/13/17 11:50 Vital Signs Reviewed: Yes Diagnostics - Vital Signs Vital Signs Temp Pulse Resp BP Pulse Ox 11/13/17 11:50 98.0 F 82 16 138/82 98 - Laboratory Lab Results: Lab Results 11/13/17 11/13/17 11/13/17 Range/Units 12:10 12:10 12:10 WBC 6.6 (3.5-10.8) 10^3/ul RBC 4.80 (4.0-5.4) 10^6/ul Hgb 14.4 (14.0-18.0) g/dl Hct 42 (42-52) % MCV 87 (80-94) fL MCH 30 (27-31) pg MCHC 34 (31-36) g/dl RDW 13 (10.5-15) % Plt Count 204 (150-450) 10^3/ul MPV 7 L (7.4-10.4) um3 Neut % (Auto) 80.3 (38-83) % Lymph % (Auto) 13.3 L (25-47) % Anson % (Auto) 5.2 (0-7) % Eos % (Auto) 0.6 (0-6) % Baso % (Auto) 0.6 (0-2) % Absolute Neuts (auto) 5.3 (1.5-7.7) 10^3/ul Absolute Lymphs (auto) 0.9 L (1.0-4.8) 10^3/ul Absolute Monos (auto) 0.3 (0-0.8) 10^3/ul Absolute Eos (auto) 0 (0-0.6) 10^3/ul Absolute Basos (auto) 0 (0-0.2) 10^3/ul Absolute Nucleated RBC 0 10^3/ul Nucleated RBC % 0 Sodium 138 (133-145) mmol/L Potassium 3.5 (3.5-5.0) mmol/L Chloride 103 (101-111) mmol/L Carbon Dioxide 29 (22-32) mmol/L Anion Gap 6 (2-11) mmol/L BUN 10 (6-24) mg/dL Creatinine 1.19 H (0.67-1.17) mg/dL Est GFR ( Amer) 84.3 (>60) Est GFR (Non-Af Amer) 65.5 (>60) BUN/Creatinine Ratio 8.4 (8-20) Glucose 147 H (70-100) mg/dL Lactic Acid (0.5-2.0) mmol/L Calcium 9.7 (8.6-10.3) mg/dL Magnesium 2.1 (1.9-2.7) mg/dL Total Bilirubin 0.50 (0.2-1.0) mg/dL AST 20 (13-39) U/L ALT 21 (7-52) U/L Alkaline Phosphatase 75 (34-104) U/L Total Creatine Kinase 188 (10-223) U/L CK-MB (CK-2) 5.3 (0.6-6.3) ng/mL Myoglobin 40.0 (17.4-105.7) ng/mL Troponin I 0.00 (<0.04) ng/mL B-Natriuretic Peptide 12 ( - 100) pg/mL Total Protein 7.5 (6.4-8.9) g/dL Albumin 4.6 (3.2-5.2) g/dL Globulin 2.9 (2-4) g/dL Albumin/Globulin Ratio 1.6 (1-3) TSH 1.24 (0.34-5.60) mcIU/mL Urine Color Urine Appearance Urine pH (5-9) Ur Specific [place] (1.010-1.030) Urine Protein (Negative) Urine Ketones (Negative) Urine Blood (Negative) Urine Nitrate (Negative) Urine Bilirubin (Negative) Urine Urobilinogen (Negative) Ur Leukocyte Esterase (Negative) Urine WBC (Auto) (Absent) Urine RBC (Auto) (Absent) Urine Bacteria (Absent) Urine Glucose (Negative) 11/13/17 11/13/17 11/13/17 Range/Units 12:10 12:57 15:02 WBC (3.5-10.8) 10^3/ul RBC (4.0-5.4) 10^6/ul Hgb (14.0-18.0) g/dl Hct (42-52) % MCV (80-94) fL MCH (27-31) pg MCHC (31-36) g/dl RDW (10.5-15) % Plt Count (150-450) 10^3/ul MPV (7.4-10.4) um3 Neut % (Auto) (38-83) % Lymph % (Auto) (25-47) % Anson % (Auto) (0-7) % Eos % (Auto) (0-6) % Baso % (Auto) (0-2) % Absolute Neuts (auto) (1.5-7.7) 10^3/ul Absolute Lymphs (auto) (1.0-4.8) 10^3/ul Absolute Monos (auto) (0-0.8) 10^3/ul Absolute Eos (auto) (0-0.6) 10^3/ul Absolute Basos (auto) (0-0.2) 10^3/ul Absolute Nucleated RBC 10^3/ul Nucleated RBC % Sodium (133-145) mmol/L Potassium (3.5-5.0) mmol/L Chloride (101-111) mmol/L Carbon Dioxide (22-32) mmol/L Anion Gap (2-11) mmol/L BUN (6-24) mg/dL Creatinine (0.67-1.17) mg/dL Est GFR ( Amer) (>60) Est GFR (Non-Af Amer) (>60) BUN/Creatinine Ratio (8-20) Glucose (70-100) mg/dL Lactic Acid 1.9 (0.5-2.0) mmol/L Calcium (8.6-10.3) mg/dL Magnesium (1.9-2.7) mg/dL Total Bilirubin (0.2-1.0) mg/dL AST (13-39) U/L ALT (7-52) U/L Alkaline Phosphatase (34-104) U/L Total Creatine Kinase (10-223) U/L CK-MB (CK-2) (0.6-6.3) ng/mL Myoglobin (17.4-105.7) ng/mL Troponin I 0.00 (<0.04) ng/mL B-Natriuretic Peptide ( - 100) pg/mL Total Protein (6.4-8.9) g/dL Albumin (3.2-5.2) g/dL Globulin (2-4) g/dL Albumin/Globulin Ratio (1-3) TSH (0.34-5.60) mcIU/mL Urine Color Straw Urine Appearance Clear Urine pH 6.0 (5-9) Ur Specific [place] 1.005 L (1.010-1.030) Urine Protein Negative (Negative) Urine Ketones Negative (Negative) Urine Blood Negative (Negative) Urine Nitrate Negative (Negative) Urine Bilirubin Negative (Negative) Urine Urobilinogen Negative (Negative) Ur Leukocyte Esterase 1+ A (Negative) Urine WBC (Auto) Trace(0-5/hpf) (Absent) Urine RBC (Auto) Absent (Absent) Urine Bacteria Absent (Absent) Urine Glucose Negative (Negative) Result Diagrams: 11/13/17 12:10 11/13/17 12:10 Lab Statement: Any lab studies that have been ordered have been reviewed, and results considered in the medical decision making process. - Radiology CXR Radiology Interpretation Completed By: Radiologist - no active cardiopulmonary disease ED physician has reviewed this radiology report. - EKG 1100 Cardiac Rate: NL EKG Rhythm: Sinus Rhythm - at 87 BPM EKG Interpretation: no st elevation normal axis Chest Pain Course/Dx - Course Assessment/Plan: An EKG reveals NSR at [address] elevation normal axis. CXR reveals, per radiologist, no active cardiopulmonary disease. Test results with no significant abnormalities. UA was negative for UTI. In the ED course the patient was given aspirin. The patient will be diagnosed with atypical chest pain. I discussed all the findings and test results with the patient. Patient was instructed to return to the emergency room immediately if any of the symptoms return or worsens. Plan of care was discussed with the patient and understands and agrees. All questions were answered at patient satisfaction. There were no further complaints or concerns. The patient is hemodynamically stable and alert and orinetedx3. Patient will be discharged and follow up from PCP. The patient is agreeable with this plan. - Chest Pain Differential Diagnosis/HQI/PQRI: Acute UT, ACS, Angina, CHF, Chest Wall, GI Disease, Lower Respiratory Infection - Diagnoses Provider Diagnoses: Atypical chest pain Discharge - Discharge Plan Condition: Stable Disposition: HOME Patient Education Materials: Chest Pain (ED) Referrals: Ulises Mckee MD [Primary Care Provider] - 3 Days Additional Instructions: RETURN TO EMERGENCY DEPARTMENT FOR ANY NEW OR WORSENING SYMPTOMS The documentation as recorded by the Casper lee Gabriel accurately reflects the service I personally performed and the decisions made by , Ulises Johnson MD.
== END 2017-11-13 16:05 | disposition home or self-care (01) ==
LOC: ED 11:47
DX: R07.89 Other chest pain (principal); K21.9 Gastro-esophageal reflux disease without esophagitis; Z86.79 Personal history of other diseases of the circulatory system
CPT/HCPCS: 36415; 71045; 80053; 81003; 81015; 82550; 82553; 83605; 83735; 83874; 83880; 84443; 84484; 85025; 87086; 93005; 99283; A9270-GY

== ENCOUNTER 2017-12-23 16:59 | Emergency (ER) | payer BC ==
[2017-12-23 17:17] VITALS: BP 135/95
--- NOTE | 2017-12-23 17:43 | UC ---
Knee Pain HPI - HPI Summary HPI Summary: Acute onset of swollen tender right knee. Denies fevers and chills no nausea vomiting. limited range of motion and ability to weight-bear - History of Current Complaint Chief Complaint: UCLowerExtremity Stated Complaint: KNEE PAIN Time Seen by Provider: 12/23/17 17:20 Hx Obtained From: Patient Onset/Duration: Sudden Onset, Lasting Days - 1, Still Present Severity Initially: Mild Severity Currently: Mild Pain Intensity: 1 Pain Scale Used: 0-10 Numeric Character: Throbbing, Stiffness Aggravating Factor(s): Movement, Weight Bearing Associated Signs And Symptoms: Positive: Swelling, Redness Able to Bear Weight: Yes - with pain - Allergies/Home Medications Allergies/Adverse Reactions: Allergies Allergy/AdvReac Type Severity Reaction Status Date / Time nitroglycerin AdvReac See Comment Verified 12/23/17 17:11 sulfamethoxazole AdvReac Headache Verified 12/23/17 17:11 [From Bactrim] trimethoprim [From Bactrim] AdvReac Headache Verified 12/23/17 17:11 Home Medications: Home Medications amLODIPine TAB* [Norvasc 5 mg TAB*] 10 mg PO DAILY 12/23/17 [History Confirmed 12/23/17] PMH/Surg Hx/FS Hx/Imm Hx Previously Healthy: No Cardiovascular History: Hypertension - Surgical History Surgical History: Yes Surgery Procedure, Year, and Place: HERNIA SX A CHILD, EAR SX A CHILD - Family History Known Family History: Positive: Diabetes - Social History Occupation: Employed Full-time Lives: With Family Alcohol Use: Weekly Alcohol Amount: 2x week Substance Use Type: None Smoking Status (MU): Never Smoked Tobacco Review of Systems Constitutional: Negative - O Skin: Negative Eyes: Negative ENT: Negative Respiratory: Negative Cardiovascular: Negative Gastrointestinal: Negative Genitourinary: Negative Motor: Decreased ROM - Right knee Neurovascular: Negative Musculoskeletal: Arthralgia - Right knee Neurological: Negative Psychological: Negative Is Patient Immunocompromised?: No All Other Systems Reviewed And Are Negative: Yes Physical Exam Triage Information Reviewed: Yes Appearance: Well-Appearing, Well-Nourished, Pain Distress Vital Signs: Initial Vital Signs Temp 98.3 F 12/23/17 17:13 Pulse 88 12/23/17 17:13 Resp 18 12/23/17 17:13 BP 135/95 12/23/17 17:13 Pulse Ox 100 12/23/17 17:13 Vital Signs Reviewed: Yes Eye Exam: Normal Eyes: Positive: Conjunctiva Clear ENT Exam: Normal ENT: Positive: Normal ENT inspection, Hearing grossly normal, Pharynx normal. Negative: Trismus, Muffled voice, Hoarse voice - White light quickly 30 minutes ER Dental Exam: Normal Neck exam: Normal Neck: Positive: Supple, Nontender Respiratory Exam: Normal Respiratory: Positive: Chest non-tender, No respiratory distress, No accessory muscle use Cardiovascular Exam: Normal Cardiovascular: Positive: RRR, Pulses Normal, Brisk Capillary Refill Musculoskeletal Exam: Other Musculoskeletal: Positive: Strength Limited @ - right knee, ROM Limited @ - right knee, Edema @ - right knee Neurological Exam: Normal Psychological Exam: Normal Skin Exam: Other - I Skin: Positive: Other - Erythema swelling and warmth anterior right knee Knee Pain Course/Dx - Course Course Of Treatment: Transfer patient by private car [facility] emergency department for further evaluation assessment and treatment of right knee pain - Differential Dx/Diagnosis Provider Diagnoses: Right knee infection Discharge - Sign-Out/Discharge Documenting (check all that apply): Discharge - Discharge Plan Condition: Stable Disposition: HOME Patient Education Materials: Swollen Knee Joint (ED) Referrals: Ulises Mckee MD [Primary Care Provider] - Additional Instructions: Please go directly to the [facility] emergency department for further assessment evaluation and treatment of your swollen right knee - Billing Disposition and Condition Condition: STABLE Disposition: HOME
== END 2017-12-23 17:39 | disposition home or self-care (01) ==
LOC: UCEAST 16:59
DX: M00.9 Pyogenic arthritis, unspecified (principal); M25.461 Effusion, right knee; I10 Essential (primary) hypertension; Z88.2 Allergy status to sulfonamides; Z88.8 Allergy status to other drugs, medicaments and biological substances
CPT/HCPCS: 99212; G0463

== ENCOUNTER 2017-12-23 18:08 | Emergency (ER) | payer BC ==
[2017-12-23 18:52] LABS: ABS Basophils 0.1 10^3/ul (0-0.2); ABS Eosinophils 0.1 10^3/ul (0-0.6); ABS Lymphocytes 1.3 10^3/ul (1.0-4.8); ABS Monocytes 0.9 10^3/ul (0-0.8); ABS Neutrophils 8.3 10^3/ul (1.5-7.7); ABS Nucleated RBC 0 10^3/ul; Eosinophil % 0.9 % (0-6); Hematocrit 40 % (42-52); Hemoglobin 14.1 g/dl (14.0-18.0); Lymphocyte % 12.2 % (25-47); Mean Corpuscular HGB Conc 35 g/dl (31-36); Mean Corpuscular Hemoglobin 31 pg (27-31); Mean Corpuscular Volume 87 fL (80-94); Mean Platelet Volume 7.4 um3 (7.4-10.4); Nucleated Red Blood Cells % 0; Platelet Count 209 10^3/ul (150-450); Red Blood Count 4.62 10^6/ul (4.0-5.4); Red Cell Distribution Width 14 % (10.5-15); White Blood Count 10.6 10^3/ul (3.5-10.8)
--- NOTE | 2017-12-23 19:06 | ED ---
Lower Extremity - HPI Summary HPI Summary: C/O RIGHT KNEE PAIN AND REDNESS STARTING LAST NIGHT. HX OF RIGHT KNEE PAIN BUT W /O THIS DEGREE OF REDNESS, PAIN. WALKED 3 MILES TODAY TO WORK AND BACK USUAL. PAIN CURRENTLY RATED 1/10. DENIES FEVER, TRAUMA, N/V, SIGNIFICANT LOSS OF ROM, CALF TENDERNESS, HX OF GOUT, DM. MED HX = HTN. - History of Current Complaint Chief Complaint: EDExtremityLower Stated Complaint: RT KNEE INJURY Time Seen by Provider: 12/23/17 18:38 Hx Obtained From: Patient Mechanism Of Injury: Unknown Onset of Pain: Immediate Onset/Duration: Hours Severity Initially: Mild Severity Currently: Moderate Pain Intensity: 1 Timing: Constant Location: Is Discrete @ Character Of Pain: Sharp Associated Signs And Symptoms: Positive: Redness, Knee Pain Alleviating Factor(s): Other - MOVEMENT Able to Bear Weight: Yes - Risk Factors Gout Risk Factors: Age Over 40, Male, Hypertension DVT Risk Factors: Negative Septic Arthritis Risk Factor: Negative - Allergies/Home Medications Allergies/Adverse Reactions: Allergies Allergy/AdvReac Type Severity Reaction Status Date / Time nitroglycerin AdvReac See Comment Verified 12/23/17 17:11 sulfamethoxazole AdvReac Headache Verified 12/23/17 17:11 [From Bactrim] trimethoprim [From Bactrim] AdvReac Headache Verified 12/23/17 17:11 PMH/Surg Hx/FS Hx/Imm Hx Endocrine/Hematology History: Denies: Hx Diabetes Cardiovascular History: Reports: Hx Hypertension GI History: Reports: Hx Gastroesophageal Reflux Disease History: Denies: Hx Kidney Stones Musculoskeletal History: Denies: Hx Rheumatoid Arthritis - Surgical History Surgery Procedure, Year, and Place: HERNIA SX A CHILD, EAR SX A CHILD Infectious Disease History: No Infectious Disease History: Denies: Traveled Outside the [place] in Last 30 Days - Family History Known Family History: Positive: Diabetes - Social History Alcohol Use: Weekly Alcohol Amount: 2x week Substance Use Type: Reports: None Smoking Status (MU): Never Smoked Tobacco Review of Systems Constitutional: Negative Eyes: Negative Cardiovascular: Negative Respiratory: Negative Gastrointestinal: Negative Genitourinary: Negative Positive: Arthralgia Skin: Negative Neurological: Negative Psychological: Normal All Other Systems Reviewed And Are Negative: Yes Physical Exam - Summary Physical Exam Summary: RIGHT KNEE RED ANTERIORLY, MILD SWELLING. POS FOR EXTRA WARMTH VS LEFT KNEE. PMS INTACT. FULL ROM. NO CALF TENDERNESS, NO POSTERIOR KNEE REDNESS OR TENDERNESS. NO INDICATION OF WOUND OR TRAUMA. Triage Information Reviewed: Yes Vital Signs On Initial Exam: Initial Vitals Temp Pulse Resp BP Pulse Ox 98.4 F 95 20 151/101 100 12/23/17 18:13 12/23/17 18:13 12/23/17 18:13 12/23/17 18:13 12/23/17 18:13 Vital Signs Reviewed: Yes Appearance: Positive: Well-Appearing Skin: Positive: Warm Head/Face: Positive: Normal Head/Face Inspection Eyes: Positive: Normal Neck: Positive: Supple Respiratory/Lung Sounds: Positive: Clear to Auscultation Cardiovascular: Positive: Normal Abdomen Description: Positive: Nontender Musculoskeletal: Positive: Normal Neurological: Positive: Normal Psychiatric: Positive: Normal - Ben Coma Scale Best Eye Response: 4 - Spontaneous Best Motor Response: 6 - Obeys Commands Best Verbal Response: 5 - Oriented Coma Scale Total: 15 Diagnostics - Vital Signs Vital Signs Temp Pulse Resp BP Pulse Ox 12/23/17 18:13 98.4 F 95 20 151/101 100 - Laboratory Lab Results: Lab Results 12/23/17 Range/Units 18:40 WBC 10.6 (3.5-10.8) 10^3/ul RBC 4.62 (4.0-5.4) 10^6/ul Hgb 14.1 (14.0-18.0) g/dl Hct 40 L (42-52) % MCV 87 (80-94) fL MCH 31 (27-31) pg MCHC 35 (31-36) g/dl RDW 14 (10.5-15) % Plt Count 209 (150-450) 10^3/ul MPV 7.4 (7.4-10.4) um3 Neut % (Auto) 77.9 (38-83) % Lymph % (Auto) 12.2 L (25-47) % [place] % (Auto) 8.4 H (0-7) % Eos % (Auto) 0.9 (0-6) % Baso % (Auto) 0.6 (0-2) % Absolute Neuts (auto) 8.3 H (1.5-7.7) 10^3/ul Absolute Lymphs (auto) 1.3 (1.0-4.8) 10^3/ul Absolute Monos (auto) 0.9 H (0-0.8) 10^3/ul Absolute Eos (auto) 0.1 (0-0.6) 10^3/ul Absolute Basos (auto) 0.1 (0-0.2) 10^3/ul Absolute Nucleated RBC 0 10^3/ul Nucleated RBC % 0 ESR Pending Result Diagrams: 12/23/17 18:40 12/23/17 18:40 Lab Statement: Any lab studies that have been ordered have been reviewed, and results considered in the medical decision making process. Re-Evaluation - Re-Evaluation n Re-Evaluation Time: 20:51 - pt continues to refuse pain meds Change: Unchanged Lower Extremity Course/Dx - Diagnoses Provider Diagnoses: Prepatellar bursitis - Physician Notifications Discussed Care Of Patient With: Praful Jones - RECCOMENDED RX FOR KEFLEX, NAPROXEN AND ICE AND F/UP NEXT WEEK IN CLINIC Time Discussed With Above Provider: 21:12 Instructed by Provider To: Have Pt Call For Appt. Discharge - Sign-Out/Discharge Documenting (check all that apply): Discharge - Discharge Plan Condition: Stable Disposition: HOME Prescriptions: Cephalexin CAP* [Keflex CAP*] 500 mg PO TID 10 Days #30 cap Referrals: Ulises Mckee MD [Primary Care Provider] - Praful Jones MD [Medical Doctor] - Additional Instructions: TAKE ANTIBIOTICS DIRECTED. TAKE NAPROXEN 500MG TWICE DAILY. FOLLOW UP WITH ORTHOPEDICS DR JONES EARLY NEXT WEEK IN CLINIC. RETURN TO ED FOR ANY NEW OR WORSENING SYMPTOMS. - Billing Disposition and Condition Condition: STABLE Disposition: HOME
[2017-12-23 19:17] LABS: EGFR Non-African American 68.2 (>60); Uric Acid 5.9 mg/dL (4.4-7.6)
[2017-12-23] MEDS ORDERED: Naproxen TAB* 250 MG PO ONE (21:21)
[2017-12-23] MEDS ORDERED: Cephalexin CAP* 500 MG PO ONE (21:21)
[2017-12-23 21:35] VITALS: BP 150/99
== END 2017-12-23 21:35 | disposition home or self-care (01) ==
LOC: ED 18:08
DX: M70.41 Prepatellar bursitis, right knee (principal); I10 Essential (primary) hypertension; Z88.2 Allergy status to sulfonamides; Z88.8 Allergy status to other drugs, medicaments and biological substances
CPT/HCPCS: 36415; 80053; 84550; 85025; 85652; 86140; 99282; A9270-GY

== ENCOUNTER 2018-01-07 00:15 | Emergency (ER) | payer BC ==
--- OUTSIDE RECORDS SUMMARY | 2018-01-07 00:32 | XMS REPORT ---
:1970 External Reference #:[id number] Author Organization [employer] Address [address] [address] Phone [phone] Care Team Providers Name Role Phone Ulises Mckee III, MD Primary Care Physician Unavailable Payers Type Date Identification Numbers Payment Provider Subscriber Commercial Policy Number: [id number] [facility] Charla Fleming PayID: [id number] [address] [address] ADRIANNE Silva [address] Medigap Part B Effective: [facility] [id number] Expires: 2012 PayID: [id number] [address] [address] ADRIANNE Bone [address]2017 Medigap Part B Expires: 2010 Policy Number: [facility] Charla Fleming [id number] Care ([employer]) Group Number: [id number] [address] PayID: [id number] [place] [address] Problems Date Description Provider Status Onset: 04/12/2011 Elevated blood-pressure reading Ulises Mckee M.D. Active without diagnosis of hypertension Onset: 03/13/2012 Benign essential hypertension Ulises Mckee M.D. Active Onset: 04/02/2013 Acute pharyngitis Julio Cameron M.D. Active Onset: 04/02/2013 Myalgia & Myositis Unspec Julio Cameron M.D. Active Onset: 10/08/2015 Essential hypertension Ulises Mckee M.D. Active Onset: 09/01/2017 Migraine without aura, not refractory Julio Cameron M.D. Active Family History Date Family Member(s) [...] Form Strength Qnty SIG Indications Ordering Provider Naproxen 12/27 Active Tablets 500mg 60tab 1 by mouth M70.41 s twice a day F as needed Karen, pain Cephalexin 12/27 Active Tablets 500mg 30tab 1 tab by M70.41 s mouth three F times a day Karen, for 10 days Amlodipine 11/02 Active Tablets 10mg 90tab 1 by mouth I10 Ulises Bowers Besylate s every day Raghav Mckee Sumatriptan 09/01 Active Tablets 100mg 9tabs use at onset G43.009 [place] Succinate of head mariza Calix M.D. repeat [...] Tablets DR 40mg 30tab 1 in the [place] Sodium s morning Rakesh barrow M.D. 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 04/18 Rhinocort Aqua 12/11 Hx Suspension 32mcg/Act 1unit spray 1 J30.9 Melinda s spray into [place], - each nostril Raghav 01/05 once daily Clarinex 12/11 Hx Tablets 5mg 30tab 1 tab po J30.9 Melinda s everyday Aleshia Tavarez M.D. 01/05 Amlodipine 12/05 Hx Tablets 10mg 90tab 1 by mouth Ulises Pathak s every day - Rylee - pt not MNelly 08/26 currently Lisinopril 10/25 Hx Tablets 10mg 90tab 1 po qd Ulises Robinson /2012 s Aleshia Mckee M.D. 12/05 Chlorthalidone 09/13 Hx Tablets 25mg 45tab 1 tab by I10 Ulises Bowers /2012 s mouth every Rylee, - day Raghav 11/02 Doxycycline 01/05 Hx Tablets 100mg 4tabs [...] CPT Code Status Date Vaccine Lot # [id number] Given 10/19/2017 Influenza Virus Vaccine, Quadrivalent, Split, [id number] Preservative Free 15821 Given 10/08/2015 Influenza Virus Vaccine, Quadrivalent, Split, [id number] Preservative Free 39961 Given 08/26/2014 Flu Vaccine Split Virus Preservative Free For [id number] Indiv 3Yr Older [id number] Given 06/13/2012 Fluzone Vaccine [id number] 76910 Given 06/04/2010 Tdap - Tetanus/Diptheria/Acellular Pertussis 02769 Given 03/15/2002 Td (History By Patient) 80076 Given Unknown Tetanus And Diptheria (Td) For Adult Use Preservative Free Vital Signs Date Vital Result Comment 12/27/2017 Height 70 inches 5'10" Weight 195.00 lb Heart Rate 80 /min BP Systolic 152 mmHg BP Diastolic 88 mmHg Respiratory Rate 12 /min Pain Level 0 BMI (Body Mass Index) 28.0 kg/m2 11/16/2017 Weight 192.00 lb Heart Rate 78 /min BP Systolic Sitting 138 mmHg BP Diastolic Sitting 72 mmHg O2 % BldC Oximetry 96 % 11/02/2017 Weight 193.00 lb Heart Rate 73 [...] Test Date Test Result H/L Range Note Comp Metabolic Panel 12/23/2017 Sodium 141 mmol/L 139-145 Potassium 4.0 mmol/L 3.5-5.0 Chloride 103 mmol/L 101-111 Co2 Carbon Dioxide 31 mmol/L 22-32 Anion Gap 7 mmol/L 2-11 Glucose 113 mg/dL High 70-100 Blood Urea Nitrogen 16 mg/dL 6-24 Creatinine 1.15 mg/dL 0.67-1.17 BUN/Creatinine Ratio 13.9 8-20 Calcium 9.4 mg/dL 8.6-10.3 Total Protein 7.4 g/dL 6.4-8.9 Albumin 4.5 g/dL 3.2-5.2 Globulin 2.9 g/dL 2-4 Albumin/Globulin Ratio 1.6 1-3 Total Bilirubin 0.60 mg/dL 0.2-1.0 Alkaline Phosphatase 81 U/L 34-104 Alt 23 U/L 7-52 Ast 23 U/L 13-39 Egfr Non- 68.2 >60 Egfr 87.7 >60 1 Laboratory test finding 12/23/2017 Uric Acid 5.9 mg/dL 4.4-7.6 C Reactive Protein 11.06 mg/L High < 5.00 2 CBC Auto Diff 12/23/2017 White Blood Count 10.6 10^3/uL 3.5-10.8 Red Blood Count 4.62 10^6/uL 4.0-5.4 Hemoglobin 14.1 g/dL 14.0-18.0 Hematocrit 40 % Low 42-52 Mean Corpuscular Volume 87 fL 80-94 Mean Corpuscular Hemoglobin 31 pg 27-31 Mean Corpuscular HGB Conc 35 g/dL 31-36 Red Cell Distribution Width 14 % 10.5-15 Platelet Count 209 10^3/uL 150-450 Mean Platelet Volume 7.4 um3 7.4-10.4 Abs Neutrophils 8.3 10^3/uL High 1.5-7.7 Abs Lymphocytes 1.3 10^3/uL 1.0-4.8 Abs Monocytes 0.9 10^3/uL High 0-0.8 Abs Eosinophils 0.1 10^3/uL 0-0.6 Abs Basophils 0.1 10^3/uL 0-0.2 Abs Nucleated RBC 0 10^3/uL Granulocyte % 77.9 % 38-83 Lymphocyte % 12.2 % Low 25-47 Monocyte % 8.4 % High 0-7 Eosinophil % 0.9 % 0-6 Basophil % 0.6 % 0-2 Nucleated Red Blood Cells % 0 Laboratory test finding 12/23/2017 Erythrocyte Sed Rate 8 mm/Hr 0-14 Basic Metabolic Panel 11/17/2017 Sodium 140 mmol/L 133-145 Potassium 4.0 mmol/L 3.5-5.0 Chloride 105 mmol/L 101-111 Co2 Carbon Dioxide 31 mmol/L 22-32 Anion Gap 4 mmol/L 2-11 Glucose 91 mg/dL 70-100 Blood Urea Nitrogen 11 mg/dL 6-24 Creatinine 1.14 mg/dL 0.67-1.17 BUN/Creatinine Ratio 9.6 8-20 Calcium 9.4 mg/dL 8.6-10.3 Egfr Non- 68.9 >60 Egfr 88.6 >60 3 Laboratory test finding 11/17/2017 Hemoglobin A1c (Glyco HGB) 5.1 % 4.0- 5.6 4 Lyme Disease Serology Negative Negative 5 Laboratory test finding 11/13/2017 Lactic Acid 1.9 mmol/L 0.5-2.0 6 B-Type Natriuretic Peptide BNP 12 pg/mL 7 Comp Metabolic Panel 11/13/2017 Sodium 138 mmol/L 133-145 Potassium 3.5 mmol/L 3.5-5.0 Chloride 103 mmol/L 101-111 Co2 Carbon Dioxide 29 mmol/L 22-32 Anion Gap 6 mmol/L 2-11 Glucose 147 mg/dL High 70-100 Blood Urea Nitrogen 10 mg/dL 6-24 Creatinine 1.19 mg/dL High 0.67-1.17 BUN/Creatinine Ratio 8.4 8-20 Calcium 9.7 mg/dL 8.6-10.3 Total Protein 7.5 g/dL 6.4-8.9 Albumin 4.6 g/dL 3.2-5.2 Globulin 2.9 g/dL 2-4 Albumin/Globulin Ratio 1.6 1-3 Total Bilirubin 0.50 mg/dL 0.2-1.0 Alkaline Phosphatase 75 U/L 34-104 Alt 21 U/L 7-52 Ast 20 U/L 13-39 Egfr Non- 65.5 >60 Egfr 84.3 >60 8 Laboratory test finding 11/13/2017 Magnesium 2.1 mg/dL 1.9-2.7 Creatine Kinase(CK) 188 U/L 10-223 Troponin-I (TnI) 0.00 ng/mL <0.04 Myoglobin 40.0 ng/mL 17.4-105.7 CKMB 11/13/2017 CKMB ng/mL 5.3 ng/mL 0.6-6.3 Laboratory test finding 11/13/2017 TSH (Thyroid Stim 1.24 mcIU/mL 0.34- 5.60 Horm) Urine Culture And 11/13/2017 Urine Culture SEE RESULT BELOW 9 Sensitivities Urinalysis Profile 11/13/2017 Urine Color Straw Urine Appearance Clear Urine Specific [place] 1.005 Low 1.010-1.030 Urine pH 6.0 5-9 Urine Urobilinogen Negative Negative Urine Ketones Negative Negative Urine Protein Negative Negative Urine Leukocytes 1+ Negative Urine Blood Negative Negative Urine Nitrite Negative Negative Urine Bilirubin Negative Negative Urine Glucose Negative Negative Urine White Blood Cell Trace(0-5/hpf) Absent Urine Red Blood Cell Absent Absent Urine Bacteria Absent Absent Laboratory test 11/13/2017 Troponin-I (TnI) 0.00 ng/mL <0.04 finding Laboratory test 10/30/2017 Troponin-I (TnI) 0.01 ng/mL <0.04 finding Laboratory test 09/01/2017 C Difficile PCR SEE RESULT BELOW 10, 11 finding Ua Routine 07/19/2017 Ua Specific [place] 1.010 Ua PH 7 Ua Color Yellow [...] Egfr Non- 65.5 >60 Egfr 84.3 >60 12 Basic Metabolic Panel 04/08/2017 Sodium 141 mmol/L 133-145 Potassium 3.4 mmol/L Low 3.5-5.0 Chloride 106 mmol/L 101-111 Co2 Carbon Dioxide 29 mmol/L 22-32 Anion Gap 6 mmol/L 2-11 Glucose 101 mg/dL High 70-100 Blood Urea Nitrogen 16 mg/dL 6-24 Creatinine 1.15 mg/dL 0.67-1.17 BUN/Creatinine Ratio 13.9 8-20 Calcium 8.7 mg/dL 8.6-10.3 Egfr Non- 68.2 >60 Egfr 87.7 >60 13 Laboratory test finding 04/08/2017 PSA Screening 3.703 ng/mL 0-4.0 14 Laboratory test finding 05/28/2016 Lyme Disease Serology Negative Negative 15 Laboratory test finding 05/04/2016 Troponin-I (TnI) 0.01 ng/mL <0.03 16 Lipid Profile 04/01/2016 Triglycerides 107 mg/dL 17 (Trig/Chol/HDL) Cholesterol 187 mg/dL 18 HDL Cholesterol 51.6 mg/dL 19 LDL Cholesterol 114 mg/dL 20 Basic Metabolic Panel 02/18/2016 Sodium 139 mmol/L 133-145 Potassium 3.5 mmol/L 3.5-5.0 Chloride 103 mmol/L 101-111 Co2 Carbon Dioxide 28 mmol/L 22-32 Anion Gap 8 mmol/L 2-11 Glucose 101 mg/dL High 70-100 Blood Urea Nitrogen 15 mg/dL 6-24 Creatinine 1.18 mg/dL High 0.67-1.17 BUN/Creatinine Ratio 12.7 8-20 Calcium 9.0 mg/dL 8.6-10.3 Egfr Non- 66.8 >60 Egfr 85.9 >60 21 CBC Auto Diff 10/08/2015 White Blood Count [...] Color Yellow Urine Appearance Clear Urine Specific [place] 1.010 1.010-1.030 Urine pH 7.0 5-9 Urine Urobilinogen Negative Negative Urine Ketones Negative Negative Urine Protein Negative Negative Urine Leukocytes Negative Negative Urine Blood Negative Negative Urine Nitrite Negative Negative Urine Bilirubin Negative Negative Urine Glucose Negative Negative Laboratory test finding 10/08/2015 PSA Diagnostic 4.026 ng/mL High 0- 4.000 22 Lipid Profile (Trig/Chol/HDL) 02/12/2015 Triglycerides 114 mg/dL 23 Cholesterol 174 mg/dL 24 HDL Cholesterol 42.3 mg/dL 25 LDL Cholesterol 109 mg/dL 26 Comp Metabolic Panel 02/12/2015 Sodium 139 mmol/L [...] Egfr Non- 67.1 >60 Egfr 86.2 >60 27 CBC Auto Diff 02/19/2014 White Blood Count [...] Protein < 1.00 mg/L &lt ; 5.00 28 Erythrocyte Sed Rate 7 mm/Hr 0-14 TSH (Thyroid Stimulating Horm) 1.51 IU/mL 0.34-5.60 Lipid Profile (Trig/Chol/HDL) 02/07/2014 Triglycerides 144 mg/dL 29 Cholesterol 199 mg/dL 30 HDL Cholesterol 46.8 mg/dL 31 LDL Cholesterol 123 mg/dL 32 Basic Metabolic Panel 02/07/2014 Sodium 140 mmol/L 133-145 Potassium 3.9 mmol/L 3.7-5.6 Chloride 104 mmol/L 101-111 Co2 Carbon Dioxide 31 mmol/L 22-32 Anion Gap 5 mmol/L 2-11 Glucose 92 mg/dL 70-100 Blood Urea Nitrogen 13 mg/dL 6-24 Creatinine 1.29 mg/dL High 0.67-1.17 BUN/Creatinine Ratio 10.1 8-20 Calcium 9.4 mg/dL 8.6-10.3 Egfr Non- 60.8 >60 Egfr 78.2 >60 33 Laboratory test finding 10/25/2013 Troponin I 0.01 ng/mL <0.03 34 Laboratory test finding 10/25/2013 B Type Natriuretic 16 pg/mL 35 Peptide CBC Auto Diff 10/25/2013 White Blood Count [...] 0-2 Nucleated Red Blood Cells % 0.1 Inr/Protime 10/25/2013 Inr 0.91 0.85-1.06 Laboratory test [...] Egfr Non- 64.8 >60 Egfr 83.4 >60 36 Laboratory test finding 10/25/2013 Creatine Kinase 202 U/L 10-223 CKMB 10/25/2013 CKMB ng/mL 5.3 ng/mL 0.6-6.3 Laboratory test finding 10/25/2013 Troponin I < 0.01 ng/mL <0.03 37 CBC Auto Diff 07/02/2013 White Blood Count [...] Egfr Non- 73.1 >60 Egfr 94.0 >60 38 Laboratory test finding 07/02/2013 Lipase 38 U/L 22-51 Troponin I 0 ng/mL 0-0.06 39 C Reactive Protein 0.7 mg/dL High Less than 0.5 Urinalysis 07/02/2013 Urine Color Yellow Urine Appearance Clear Urine Specific [place] 1.015 1.010-1.030 Urine Esterase Negative Negative Urine [...] Egfr Non- 66.1 >60 Egfr 85.0 >60 40 CBC Auto Diff 04/02/2013 White Blood Count [...] Negative Negative Deisy-Franklin Virus Interp See Comment 41 Manual Differential 04/02/2013 Neutrophil % 65 % 38-83 Band % 2 % 0-8 Lymphocytes % 23 % Low 25-47 Monocytes % 7 % 0-13 Eosinophils % 3 % 0-6 RBC Morphology Normal Normal Laboratory test finding 04/02/2013 Throat Culture (SEE NOTE) 42 Laboratory test finding 04/02/2013 Rapid Strep A [...] Egfr Non- 66.4 >60 Egfr 85.4 >60 43 Urinalysis W/Microscopic 07/31/2012 Urine Color Yellow Urine Appearance Clear Urine Specific [place] 1.009 Low 1.010-1.030 Urine Esterase 1+ Negative Urine Nitrate Negative Negative Urine Urobilinogen Negative Negative Urine Protein Negative Negative Urine pH 6.5 5-9 Urine Blood Negative Negative Urine Ketones Negative Negative Urine Bilirubin Negative Negative Urine Glucose Negative Negative Urine WBC 1+ (<3 /hpf) None Seen Urine RBC None Seen None Seen Urine Epithelial Cells 1+ Squamous /hpf None Seen Urine Culture And Sensitivities 07/31/2012 Urine Culture (SEE NOTE) 44 Basic Metabolic Panel 02/25/2012 Sodium 140 mmol/L 135-145 Potassium 3.8 mmol/L 3.5-5.0 Chloride 107 mmol/L 101-111 Co2 (Carbon Dioxide) 28.0 mmol/L 22-32 Anion Gap 5.0 mmol/L 2-11 45 Glucose 88 mg/dL 70-100 BUN 12 mg/dL 6-24 Creatinine 1.4 mg/dL 0.50-1.40 One Over Creatinine 0.71 BUN/Creatinine Ratio 8.6 8-20 Calcium 9.0 mg/dL 8.1-9.9 eGFR Non- 55.8 > 60 eGFR 71.8 > 60 46 Lipid Profile (Trig/Chol/HDL) 02/25/2012 Triglyceride 122 mg/dL 40-200 Cholesterol 183 mg/dL Less Than 200 47 High Density Lipoprotein 46 mg/dL 40-60 48 Cholesterol/HDL Ratio 3.98 AVERAGE 1-4.97 Low Density Lipoprotein 113 mg/dL High Less Than 100 49 Lipid Profile (Trig/Chol/HDL) 02/09/2011 Triglyceride 133 mg/dL 40-200 Cholesterol 194 mg/dL Less Than 200 50 High Density Lipoprotein 45 mg/dL 40-60 51 Cholesterol/HDL Ratio 4.31 AVERAGE 1-4.97 Low Density Lipoprotein 122 mg/dL High Less Than 100 52 CBC Auto Diff 02/09/2011 White Blood Count [...] Eosinophils 0.1 0-0.6 Abs Basophils 0 0-0.2 Comp Metabolic Panel 02/09/2011 Sodium 139 mmol/L 135-145 Potassium 4.0 mmol/L 3.5-5.0 Chloride 103 mmol/L 101-111 Co2 (Carbon Dioxide) 29.0 mmol/L 22-32 Anion Gap 7.0 mmol/L 2-11 53 Glucose 100 mg/dL 70-100 BUN 13 mg/dL 6-24 Creatinine 1.40 mg/dL 0.50-1.40 One Over Creatinine 0.70 BUN/Creatinine Ratio 9.3 8-20 Calcium 9.1 mg/dL 8.1-9.9 Total Protein 6.4 GM/DL 6.2-8.1 Albumin 4.3 GM/DL 3.6-5.4 Globulin 2.1 GM/DL 2-4 Albumin/Globulin Ratio 2.0 1-3 Bilirubin Total 0.9 mg/dL 0.4-1.5 54 Alkaline Phosphatase 82 U/L 39-117 Alt (SGPT) 28 U/L 17-63 Ast (Sgot) 24 U/L 12-42 eGFR Non- 56.1 > 60 eGFR 72.2 > [address] Mckee's Lab Panel 02/09/2011 TSH 3.25 MIU/ML 0.34-5.60 Gcchlu 04/05/2007 CHL On Urine NEGATIVE Negative 56 GC On Urine NEGATIVE Negative 57 1 Because ethnic data is not always readily [...] 15-29 5 Kidney failure <15 (or dialysis) 2 Acute inflammation: >10.00 3 Because ethnic data is not always [...] 5 Kidney failure <15 (or dialysis) 4 Therapeutic target for the treatment of diabetes mellitus patients is <7% HBA1C, and in selective patients <6.0%. Please refer to [place] [employer] diabetic care guidelines for further information. 5 Serologic response to B. burgdorferi infection is not detected, but cannot rule out early infection during which low or undetectable antibody levels to B. burgdorferi may be present. If clinically indicated, a new serum specimen should be submitted in 7-14 days. Test Performed by: [facility] [address] [place] [address] 6 [facility] Severe Sepsis and Septic Shock Management Bundle Measure requires all lactic acids initially measuring >2.0 mmol/L be repeated. 7 >100 to <200 pg/mL: likely compensated congestive heart failure (CHF) 200 to 400 pg/mL: likely moderate CHF >400 pg/mL: likely moderate to severe CHF 8 Because ethnic data is not always readily [...] 15-29 5 Kidney failure <15 (or dialysis) 9 SEE RESULT BELOW Name: KSENIACHARLA : [address]: Ulises Johnson MD Acct: [id number] Unit: [id number] AGE: 47 Location: ED Re11/13/17 SEX: M Status: DEP ER SPEC: [id number] SHARON: 11/13/17-12[address] [facility] [address]: Ulises Johnson MD REQ: [id number] RECD: 11/13/17-1299 STATUS: COMP [facility] DR: Ulises Mckee III, MD _ SOURCE: URINE SPDESC: ORDERED: Urine Culture Procedure Result Reported Site Urine Culture Final 11/14/17- 1243 ML No growth of clinically significant organisms * ML - Main Lab . END OF REPORT DEPARTMENT OF PATHOLOGY, [address] [place] [address] Ismael Boland M.D. Director [facility] # [id number] 11 SEE RESULT BELOW Name: CHARLA FLEMING : [address]: Julio Cameron MD Acct: [id number] Unit: [id number] AGE: 47 Location: [facility] Re09/01/17 SEX: M Status: REG REF SPEC: [id number] SHARON: 09/01/17-[address] [facility] [address]: Julio Cameron MD REQ: [id number] RECD: 09/01/17 STATUS: COMP _ SOURCE: STOOL SPDESC: ORDERED: C. diff PCR COMMENTS: [id number] Procedure Result Reported Site Stool Specimen Description Final 09/02/17- 0902 ML Stool Color Brown Stool Form Formed Stool Consistency Firm C. difficile PCR Final 09/01/17- 1941 ML Organism 1 027 Presumptive NEGATIVE Organism 2 Toxigenic C.diff NEGATIVE * ML - MAIN LAB (PSC1) . END OF REPORT * ML=Testing performed at Main Lab DEPARTMENT OF PATHOLOGY, [address] [place] [address] Ismael Boland M.D. Director [facility] # [id number] 12 Because ethnic data is not always [...] 5 Kidney failure <15 (or dialysis) 13 Because ethnic data is not always readily [...] 15-29 5 Kidney failure <15 (or dialysis) 14 Serum levels of PSA measured using the [employer] DXI Hybritech immunoassay should not be interpreted as absolute evidence of the presence or absence of disease. The PSA value should be used in conjunction with other pertinent clinical diagnostic procedures. The values obtained with different assay methods or kits cannot be used interchangeably. 15 Serologic response to B. burgdorferi infection is not detected, but cannot rule out early infection during which low or undetectable antibody levels to B. burgdorferi may be present. If clinically indicated, a new serum specimen should be submitted in 7-14 days. Test Performed by: [place] [address] Maintainer Central Office: Hill Waggoner II, M.D., Ph.D. 16 Reference Range and Interpretation: TnI (ng/mL) Interpretation Less Than 0.03 ng/mL Not supportive of diagnosis of DE 0.03 - 0.50 ng/mL Indeterminate: suggest serial studies if clinically indicated. Greater than 0.5 ng/mL Consistent with diagnosis of DE 17 Desirable <150 Borderline high 150-199 High 200-499 Very High >500 18 Desirable <200 Borderline high 200-239 High >239 19 Low <40 Desirable: 40-60 High: >60 20 Desirable: <100 mg/dL Near Optimal: 100-129 mg/dL Borderline High: 130-159 mg/dL High: 160-189 mg/dL Very High: >189 mg/dL 21 Because ethnic data is not always readily [...] 15-29 5 Kidney failure <15 (or dialysis) 22 Serum levels of PSA measured using the [employer] DXI Hybritech immunoassay should not be interpreted as absolute evidence of the presence or absence of disease. The PSA value should be used in conjunction with other pertinent clinical diagnostic procedures. The values obtained with different assay methods or kits cannot be used interchangeably. 23 Desirable <150 Borderline high 150-199 High 200-499 Very High >500 24 Desirable <200 Borderline high 200-239 High >239 25 Low <40 Desirable: 40-60 High: >60 26 Desirable: <100 mg/dL Near Optimal: 100-129 mg/dL Borderline High: 130-159 mg/dL High: 160-189 mg/dL Very High: >189 mg/dL 27 Because ethnic data is not always [...] 5 Kidney failure <15 (or dialysis) 28 Acute inflammation: >10.00 29 Desirable <150 Borderline high 150-199 High 200-499 Very High >500 30 Desirable <200 Borderline high 200-239 High >239 31 Low <40 Desirable: 40-60 High: >60 32 Desirable <100 Near Optimal 100-129 Borderline high 130-159 High 160-189 Very High >189 33 Because ethnic data is not always [...] 5 Kidney failure <15 (or dialysis) 34 Reference Range and Interpretation: TnI (ng/mL) Interpretation Less Than 0.03 ng/mL Not supportive of diagnosis of DE 0.03 - 0.50 ng/mL Indeterminate: suggest serial studies if clinically indicated. Greater than 0.5 ng/mL Consistent with diagnosis of DE 35 >100 to <200 pg/mL: likely compensated congestive heart failure (CHF) 200 to 400 pg/mL: likely moderate CHF >400 pg/mL: likely moderate to severe CHF [facility] 36 Because ethnic data is not always readily [...] 15-29 5 Kidney failure <15 (or dialysis) 37 Reference Range and Interpretation: TnI (ng/mL) Interpretation Less Than 0.03 ng/mL Not supportive of diagnosis of DE 0.03 - 0.50 ng/mL Indeterminate: suggest serial studies if clinically indicated. Greater than 0.5 ng/mL Consistent with diagnosis of DE 38 Because ethnic data is not always readily [...] 15-29 5 Kidney failure <15 (or dialysis) 39 Reference Range and Interpretation: TnI (ng/mL) Interpretation Less Than 0.06 ng/mL Not supportive of diagnosis of DE 0.06 - 0.50 ng/mL Indeterminate: suggest serial studies if clinically indicated. Greater than 0.5 ng/mL Consistent with diagnosis of DE 40 Because ethnic data is not always [...] 5 Kidney failure <15 (or dialysis) 41 Results suggest no prior exposure to Deisy-Franklin [...] primary infection with EBV. Test Performed by: [place] [id number] Maintainer Central Office: Mc Arrington III, M.D. 42 RUN DATE: 04/05/13 [facility] LAB LIVE PAGE 1 RUN TIME: [address] [place], [place] [address] Specimen Inquiry Name: CHARLA FLEMING : [address]: Julio Cameron MD Acct: [id number] Unit: [id number] AGE: 43 Location: [facility] Re04/02/13 SEX: M Status: REG REF SPEC: [id number] SHARON: 04/02/13-[address] [facility] [address]: Julio Cameron MD REQ: [id number] RECD: 04/02/139665 STATUS: COMP _ SOURCE: THROAT SPDESC: ORDERED: Throat Culture QUERIES: [employer] Number [id number] Procedure Result Verified Site Throat Culture Final 04/05/13- 932 ML Organism 1 NORMAL SHELBY Quantity 3+ END OF REPORT * ML=Testing performed at Main Lab DEPARTMENT OF PATHOLOGY, [facility] [employer] [facility] [place] [id number] Ismael Boland M.D. Director [facility] Permit #[id number] 43 Because ethnic data is not always [...] 5 Kidney failure <15 (or dialysis) 44 RUN DATE: 08/02/12 [facility] LAB LIVE PAGE 1 RUN TIME: 1230 [facility] [place], [place] [address] Specimen Inquiry Name: CHARLA FLEMING : [address]: Ulises Mckee III, MD Acct: [id number] Unit: [id number] AGE: 42 Location: [facility] Re07/31/12 SEX: M Status: REG REF SPEC: [id number] SHARON: 07/31/12-[address]: Ulises Mckee III, MD REQ: [id number] RECD: 07/31/12 STATUS: COMP _ SOURCE: URINE SPDESC: ORDERED: Urine Culture COMMENTS: URINE QUERIES: [employer] Number [id number] Procedure Result Verified Site Urine Culture Final 08/02/12- 1230 ML No Growth Day 2 (<1,000 CFU/mL) END OF REPORT * ML=Testing performed at Main Lab DEPARTMENT OF PATHOLOGY, [address] [place] [address] Ismael Boland M.D. Director [facility] Permit #[id number] 45 Anion gap measurement may be of limited value in the presence of any alkalosis, especially in a combined acid base disorder. . 46 Because ethnic data is not always readily [...] 15-29 5 Kidney failure <15 (or dialysis) 47 CHOLESTEROL INTERPRETATION: Desirable: Less than 200 MG/DL Borderline-High Risk: 200-239 MG/DL High-Risk: 240 MG/DL and over 48 HDL INTERPRETATION: Undesirable: High Risk: Less than 40 MG/DL Desirable: Low Risk: Greater than 60 MG/DL 49 LDL INTERPRETATION: Low Risk Optimal Level: LDL Less than 100 MG/DL Near or Above Optimal: LDL 100-129 MG/DL Borderline High Risk: LDL 130-159 MG/DL High Risk: LDL 160-189 MG/DL Very High Risk: LDL Greater than 189 MG/DL 50 CHOLESTEROL INTERPRETATION: Desirable: Less than 200 MG/DL Borderline-High Risk: 200-239 MG/DL High-Risk: 240 MG/DL and over 51 HDL INTERPRETATION: Undesirable: High Risk: Less than 40 MG/DL Desirable: Low Risk: Greater than 60 MG/DL 52 LDL INTERPRETATION: Low Risk Optimal Level: LDL Less than 100 MG/DL Near or Above Optimal: LDL 100-129 MG/DL Borderline High Risk: LDL 130-159 MG/DL High Risk: LDL 160-189 MG/DL Very High Risk: LDL Greater than 189 MG/DL 53 Anion gap measurement may be of limited value in the presence of any alkalosis, especially in a combined acid base disorder. . 54 A metabolite of Naproxen, O-desmethylnaproxen, has been shown to interfere with the Jendrassik-Newman method for measuring total bilirubin. Samples from patients who have taken Naproxen have shown spurious elevation in total bilirubin levels. 55 Because ethnic data is not always readily [...] 15-29 5 Kidney failure <15 (or dialysis) 56 . A negative result does not preclude the presence of a C.trachomatis or N.gonorrhoeae infection because results are dependent on adequate specimen collection, absence of inhibitors, and sufficient rRNA to be detected. Test results may be affected by improper specimen collection, improper specimen storage, technical error, or specimen mixup. . 57 . A negative result does not preclude the presence of a C.trachomatis or N.gonorrhoeae infection because results are dependent on adequate specimen collection, absence of inhibitors, and sufficient rRNA to be detected. Test results may be affected by improper specimen collection, improper specimen storage, technical error, or specimen mixup. . Procedures Date CPT Code Description Status 12/13/2017 34709 ECHO Stress Test Incl Perf Contiuous ekg Monitoring Completed W/Phys Superv 10/30/2013 14585 ECHO Stress Test Incl Perf Contiuous ekg Monitoring Completed W/Phys Superv 10/13/2001 Colonoscopy Completed Encounters Type Date Location Provider CPT E/M Dx Office Visit 11/16/2017 11:40a [facility] Ulises Mckee, 31438 I10 - Jimi Avilez R53.83 R73.01 Office Visit 11/02/2017 10:20a [facility] Ulises Mckee, 60779 R07.9 - Jimi Avilez I10 R53.83 Office Visit 10/26/2017 1:00p [facility] Ulises Mckee, 22127 M79.606 - Jimi Avilez Office Visit 10/19/2017 2:20p [facility] Ulises Mckee, 12589 I10 - Jimi Avilez Z23 Office Visit 09/22/2017 2:40p [facility] Ulises Mckee, 10028 R10.30 - Jimi Avilez Office Visit 09/01/2017 9:40a [facility] Julio Cameron, 16929 K29.00 - Milagro Hanley M.D. R19.7 G43.009 I10 Office Visit 07/19/2017 2:00p [facility] Ulises Mckee, 16328 M54.9 - Jimi Avilez Office Visit 04/18/2017 3:00p [facility] Ulises Mckee, 95338 Z00.00 - Jimi Avilez I10 R30.0 Office Visit 10/13/2016 10:00a [facility] Aleshia Mckee, 83804 I10 Jimi Avilez H61.23 Office Visit 08/11/2016 3:40p [facility] Ulises Mckee, 80633 J06.9 - Jimi Avilez Office Visit 05/17/2016 11:00a [facility] Ulises Mckee, 01896 R07.89 - Jimi Avilez R53.83 Office Visit 04/12/2016 10:40a [facility] Ulises Mckee, 33184 Z00.00 - Sandip Avilez I10 R30.0 Office Visit 03/02/2016 9:40a [facility] [place] [address] H60.8x1 - [place] Office Visit 02/13/2016 4:20p [facility] [place] [address] H60.8x1 - [place] Office Visit 01/06/2016 11:20a [facility] Ulises Mckee, 42512 I10 - Sandip Avilez Office Visit 12/12/2015 1:40p [facility] Melinda Tavarez M.D. 68740 J30.9 - [place] G44.209 I10 Office Visit 10/31/2015 10:00a [facility] Ulises Mckee, 09972 R10.30 - Sandip Avilez Office Visit 10/08/2015 11:00a [facility] Ulises Mckee, 85956 I10 - Sandip Avilez R10.30 Z23 Office Visit 04/07/2015 3:00p [facility] Ulises Mckee, 57716 V70.0 - Sandip Avilez 401.1 788.1 Office Visit 01/20/2015 3:30p [facility] [place] [address] 465.8 [place] 401.1 460 401.9 Office Visit 11/12/2014 11:40a [facility] Ulises Mckee, 41136 465.9 - [place] M.Eric Office Visit 08/26/2014 3:40p [facility] Ulises Mckee, 12924 401.1 - [place] Avilez V04.81 Office Visit 02/19/2014 10:20a [facility] Ulises Mckee, 77626 V70.0 - Sandip Avilez 401.1 780.79 Office Visit 04/02/2013 10:20a [facility] Julio Cameron M.D. 86956 462 - [place] 729.1 Office Visit 11/07/2012 1:40p [facility] Ulises Mckee, 61093 465.9 - Sandip Avilez 401.1 Office Visit 10/16/2012 11:00a [facility] Nurse Visit [place] 0[address] 401.1 - [place] Office Visit 09/13/2012 11:00a [facility] Ulises Mckee, 42094 401.1 - Sandip Avilez Office Visit 08/03/2012 11:20a [facility] Ulises Mckee, 86502 789.09 - Sandip Avilez 724.2 Office Visit 07/25/2012 11:40a [facility] Ulises Mckee, 97874 724.2 - Sandip Avilez 796.2 Office Visit 03/13/2012 11:00a [facility] Ulises Mckee, 57390 V70.0 - Sandip Avilez 401.1 Office Visit 10/13/2011 11:00a [facility] Ulises Mckee, 58319 796.2 - Sandip Avilez Office Visit 05/04/2011 2:00p DO Not Use [employer] [facility] Melinda Tavarez M.D. 16332 924.3 [facility] Office Visit 04/12/2011 10:20a DO Not Use [employer] [facility] Ulises Robinson Mckee, 30036 796.2 Ramseyrosario Avilez Office Visit 03/11/2011 1:40p DO Not Use [employer] [facility] UlisesBess, 32216 V70.0 Ramseyrosario Avilez 780.79 796.2 Office Visit 12/31/2009 9:40a DO Not Use [employer] [facility] Ulises Robinson Mckee, 83014 729.5 Ramseyrosario Avilez Office Visit 07/21/2009 3:15p DO Not Use [employer] [facility] Ulises Robinson Mckee, 97930 487.1 [facility] Raghav Office Visit 01/22/2009 3:45p [facility] 87428 729.5 [facility] Raghav Office Visit 04/25/2008 10:45a [facility] 20122 380.4 [facility] Office Visit 10/11/2007 11:30a [facility], 59102 724.2 [facility] Office Visit 04/04/2007 11:15a [facility], [address] [facility]. 709.4 Plan of Care Future Appointment(s):01/11/2018 2:15 pm - Praful Jones MD [facility]12/27/2017 - Praful Jones, MDM70.41 Prepatellar bursitis, right kneeNew Medication:Naproxen 500 mgCephalexin 500 mgFollow up:Follow up: in 2 weeks
[2018-01-07 01:47] LABS: ABS Basophils 0.1 10^3/ul (0-0.2); ABS Eosinophils 0.2 10^3/ul (0-0.6); ABS Lymphocytes 1.6 10^3/ul (1.0-4.8); ABS Monocytes 0.5 10^3/ul (0-0.8); ABS Nucleated RBC 0 10^3/ul; Eosinophil % 2.6 % (0-6); Hematocrit 39 % (42-52); Hemoglobin 13.3 g/dl (14.0-18.0); Lymphocyte % 25.7 % (25-47); Mean Corpuscular HGB Conc 34 g/dl (31-36); Mean Corpuscular Hemoglobin 30 pg (27-31); Mean Corpuscular Volume 87 fL (80-94); Mean Platelet Volume 7.5 um3 (7.4-10.4); Nucleated Red Blood Cells % 0.1; Platelet Count 213 10^3/ul (150-450); Red Blood Count 4.44 10^6/ul (4.0-5.4); Red Cell Distribution Width 13 % (10.5-15); White Blood Count 6.4 10^3/ul (3.5-10.8)
[2018-01-07 01:58] LABS: INR 0.89 (0.77-1.02)
--- NOTE | 2018-01-07 02:25 | ED ---
Seun Elizabeth Nikita, scribed for Lorri Cormier MD on 01/07/18 at 0125 . Lower Extremity - HPI Summary HPI Summary: This patient is a 47 year old M presenting to ED with a chief complaint of R ankle swelling earlier this morning. The patient rates the pain 0/10 in severity in the ankle. Symptoms aggravated by nothing. Symptoms alleviated by nothing. Patient reports calf pain and swelling (pain has resolved). The patient was here last week for R knee infection. - History of Current Complaint Chief Complaint: EDExtremityLower Stated Complaint: RT LEG PAIN Time Seen by Provider: 01/07/18 01:18 Hx Obtained From: Patient Onset/Duration: Hours Severity Currently: None Pain Intensity: 0 Pain Scale Used: 0-10 Numeric Timing: Constant Location: Is Discrete @ - R ankle swelling and R calf swelling Associated Signs And Symptoms: Positive: Other - R ankle and calf swelling Aggravating Factor(s): Nothing Alleviating Factor(s): Nothing - Allergies/Home Medications Allergies/Adverse Reactions: Allergies Allergy/AdvReac Type Severity Reaction Status Date / Time nitroglycerin AdvReac See Comment Verified 01/07/18 01:22 sulfamethoxazole AdvReac Headache Verified 01/07/18 01:22 [From Bactrim] trimethoprim [From Bactrim] AdvReac Headache Verified 01/07/18 01:22 PMH/Surg Hx/FS Hx/Imm Hx Endocrine/Hematology History: Denies: Hx Diabetes Cardiovascular History: Reports: Hx Hypertension GI History: Reports: Hx Gastroesophageal Reflux Disease History: Denies: Hx Kidney Stones Musculoskeletal History: Denies: Hx Rheumatoid Arthritis - Surgical History Surgery Procedure, Year, and Place: HERNIA SX A CHILD, EAR SX A CHILD Infectious Disease History: No Infectious Disease History: Denies: Traveled Outside the [place] in Last 30 Days - Family History Known Family History: Positive: Diabetes - Social History Alcohol Use: Weekly Alcohol Amount: 2x week Substance Use Type: Reports: None Smoking Status (MU): Never Smoked Tobacco Review of Systems Negative: Fever Positive: Other - R ankle and calf swelling; R calf pain (has resolved) All Other Systems Reviewed And Are Negative: Yes Physical Exam - Summary Physical Exam Summary: VITAL SIGNS: Reviewed. GENERAL: ~Patient is a well-developed and nourished MALE who is lying comfortable in the stretcher. Patient is not in any acute respiratory distress. HEAD AND FACE: No signs of trauma. No ecchymosis, hematomas or skull depressions. No sinus tenderness. EYES: PERRLA, EOMI x 2, No injected conjunctiva, no nystagmus. EARS: Hearing grossly intact. Ear canals and tympanic membranes are within normal limits. MOUTH: Oropharynx within normal limits. NECK: Supple, trachea is midline, no adenopathy, no JVD, no carotid bruit, no c- spine tenderness, neck with full ROM. CHEST: Symmetric, no tenderness at palpation LUNGS: Clear to auscultation bilaterally. No wheezing or crackles. CVS: Regular rate and rhythm, S1 and S2 present, no murmurs or gallops appreciated. ABDOMEN: Soft, non-tender. No signs of distention. No rebound, no guarding, and no masses palpated. Bowel sounds are normal. EXTREMITIES: FROM in all major joints, no cyanosis or clubbing. R ankle exam has no inflammatory signs. R ankle swelling and edema. NEURO: Alert and oriented x 3. No acute neurological deficits. Speech is normal and follows commands. SKIN: Dry and warm Triage Information Reviewed: Yes Vital Signs On Initial Exam: Initial Vitals Temp Pulse Resp BP Pulse Ox 97.2 F 73 16 153/91 99 01/07/18 00:22 01/07/18 00:22 01/07/18 00:22 01/07/18 00:22 01/07/18 00:22 Vital Signs Reviewed: Yes Diagnostics - Vital Signs Vital Signs Temp Pulse Resp BP Pulse Ox 01/07/18 00:22 97.2 F 73 16 153/91 99 - Laboratory Result Diagrams: 01/07/18 01:36 Lab Statement: Any lab studies that have been ordered have been reviewed, and results considered in the medical decision making process. Re-Evaluation - Re-Evaluation First Eval Re-Evaluation Time: 02:09 Comment: Discussed results and discharge plan with the patient. Lower Extremity Course/Dx - Course Assessment/Plan: This patient is a 47 year old M presenting to ED with a chief complaint of R ankle swelling earlier this morning. The patient will be discharged with instructions to elevate his foot. The patient is agreeable with this plan. - Diagnoses Differential Diagnosis/HQI/PQRI: Positive: Other - right lower extremity pain Provider Diagnoses: Swelling of right lower extremity Discharge - Sign-Out/Discharge Documenting (check all that apply): Discharge/Admit/Transfer - Discharge Plan Condition: Stable Disposition: HOME Patient Education Materials: Leg Edema (ED), Knee Bursitis (ED) Referrals: Ulises Mckee MD [Primary Care Provider] - 01/09/18 (Follow up with your PCP on Tuesday.) Additional Instructions: RETURN TO EMERGENCY DEPARTMENT FOR ANY NEW OR WORSENING SYMPTOMS. REMEMBER TO ELEVATE YOUR LEG. The documentation as recorded by the Seun lee Nikita accurately reflects the service I personally performed and the decisions made by , Lorri Cormier MD.
[2018-01-07 03:26] VITALS: BP 147/86
== END 2018-01-07 02:40 | disposition home or self-care (01) ==
LOC: ED 00:15
DX: M79.89 Other specified soft tissue disorders (principal); K21.9 Gastro-esophageal reflux disease without esophagitis; I10 Essential (primary) hypertension
CPT/HCPCS: 36415; 85025; 85379; 85610; 85730; 99282

== ENCOUNTER 2018-11-14 15:20 | Emergency (ER) | payer BC ==
--- OUTSIDE RECORDS SUMMARY | 2018-11-14 15:25 | XMS REPORT | Continuity of Care Document ---
:1970 External Reference #:[id number] Author Name Lyssa Freeman O.D. Address [address] [place] [address] Care Team Providers Name Role Phone Ulises Mckee M.D. Primary Care Physician Unavailable Payers Date Identification Numbers Payment Provider Subscriber Policy Number: [id number] [facility] Jordon Fleming PayID: [id number] [address] [address] [place] [address] Advance Directives Description No Information Available Problems Date Description Provider Status Onset: Essential hypertension Active Onset: Irritable bowel syndrome Active Onset: 04/02/2015 High Risk Open Angle Glaucoma Lyssa Freeman O.D. 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 Active Onset: 01/10/2016 Foreign body in conjunctival sac, Brenda Sanchez O.D. Active left eye, initial encounter Family History Date Family Member(s) Observation Comments Father Cataract Mother Unknown Social History Type Date Description Comments Sex Unknown Occupation [employer] Work Status Full-Time Employment ETOH Use Occasionally consumes alcohol Tobacco Use Start: Unknown Patient has never smoked Recreational Drug Use Denies Drug Use Smoking Status Reviewed: 11/09/18 Patient has never smoked Allergies, Adverse Reactions, Alerts Date Description Reaction Status Severity Comments 11/09/2018 Bactrim Active Headache 11/09/2018 Cipro Active Tendon Issues 03/31/2015 NKDA Inactive Medications Medication Date Status Form Strength Qnty SIG Indications Ordering Provider Rewetting Drops Active Solution as needed Brenda Collier 016 Enrique Sanchez Amlodipine Active Tablets 10mg Rylee, Besylate 000 Ulises MAustinDAustin Chlorthalidone Hx Tablets 25mg Unknown 000 - 018 Valsartan Hx Tablets 80mg Unknown 000 - 018 Immunizations Description No Information Available Vital Signs Description No Information Available Results Description No Information Available Procedures Date Code Description Status 05/10/2018 03571 Scanning Computerized Ophthalmic Diagnostic Imag Posterior Completed Seg On 05/10/2018 50055 Visual Field Exam Extended Completed 05/10/2018 99754 Determination Of Refractive State Completed 05/10/2018 59787 Est Patient Comprehensive Exam Completed 04/22/2017 57777 Scanning Computerized Ophthalmic Diagnostic Imag Posterior Completed Seg On 04/22/2017 23824 Est Patient Comprehensive Exam Completed 10/22/2016 64594 Est Patient Intermediate Exam Completed 04/07/2016 63912 Scanning Computerized Ophthalmic Diagnostic Imag Posterior Completed Seg On 04/07/2016 73435 Determination Of Refractive State Completed 04/07/2016 84871 Est Patient Comprehensive Exam Completed 01/10/2016 90862 Est Patient Intermediate Exam Completed 10/03/2015 44426 Visual Field Exam Extended Completed 10/03/2015 76291 Est Patient Intermediate Exam Completed 04/02/2015 10397 Est Patient Comprehensive Exam Completed 04/02/2015 94897 Scanning Computerized Ophthalmic Diagnostic Imag Posterior Completed Seg On 10/02/2014 29608 Visual Field Exam Extended Completed 04/08/2014 62298 Scanning Computerized Ophthalmic Diagnostic Imag Posterior Completed Seg On 04/08/2014 33206 Gonioscopy Completed 04/08/2014 26565 Determination Of Refractive State Completed 04/08/2014 50197 Est Patient Comprehensive Exam Completed 04/08/2014 101 Level 1 SCL Fit/Refit Completed 10/01/2013 28071 Visual Field Exam Extended Completed 10/01/2013 96574 Est Patient Intermediate Exam Completed 03/30/2013 35997 Scanning Computerized Ophthalmic Diagnostic Imag Posterior Completed Seg On 03/30/2013 58151 Est Patient Comprehensive Exam Completed 03/30/2013 201 Refit - No Change In Fit Completed 09/29/2012 64096 Est Patient Intermediate Exam Completed 09/29/2012 54221 Visual Field Exam Extended Completed 07/26/2012 78927 Determination Of Refractive State Completed 03/29/2012 03526 Scanning Computerized Ophthalmic Diagnostic Imag Posterior Completed Seg On 03/29/2012 87355 Est Patient Comprehensive Exam Completed 03/29/2012 522 Refresh For Contacts Completed 03/29/2012 201 Refit - No Change In Fit Completed 09/29/2011 70041 Est Patient Intermediate Exam Completed 03/29/2011 40322 Visual Field Exam Extended Completed 01/15/2011 09971 Scanning Computerized Ophthalmic Diagnostic Imag Posterior Completed Seg On 01/15/2011 25288 Determination Of Refractive State Completed 01/15/2011 26206 Est Patient Comprehensive Exam Completed 01/15/2011 88900 Pachymetry Completed 01/15/2011 202 Refit SCL Completed 01/14/2010 201 Refit - No Change In Fit Completed 01/14/2010 39473 Est Patient Comprehensive Exam Completed 01/14/2010 72968 Determination Of Refractive State Completed 11/01/2007 23713 Determination Of Refractive State Completed 11/01/2007 44459 Est Patient Comprehensive Exam Completed 11/01/2007 201 Refit - No Change In Fit Completed 10/28/2006 201 Refit - No Change In Fit Completed 08/09/2005 14633 Determination Of Refractive State Completed 08/09/2005 70403 Est Patient Comprehensive Exam Completed 08/09/2005 203 Refit Soft Toric/Monovision Completed 02/27/2004 114 Polycarb SV Completed 12/18/2003 56271 Determination Of Refractive State Completed 12/18/2003 78761 Est Patient Comprehensive Exam Completed Encounters Type Date Location Provider Dx Diagnosis Office Visit 11/07/2017 Lyssa Schaeffer H40.023 Open angle with 11:20a , angélica Freeman O.D. borderline findings, high risk, bilateral Office Visit 10/02/2014 Lyssa Schaeffer 365.01 Low Risk Open 4:00p angélica ISSA O.D. Angle Glaucoma/ Suspect Office Visit 03/29/2011 Lyssa Schaeffer 3:10p angélica ISSA O.D. Plan of Treatment 11/09/2018 - Lyssa Freeman O.D.H40.023 Open angle with borderline findings , high risk, bilateralFollow up:6 Month Follow Up OCT ON Visual Field, 30-2 /CL' S FIT You can expect to have your eyes dilated at your next visit. If Dr. Freeman orders any additional testing, it may require extra time. We recommend that you bring sunglasses, as dilation drops often make you light sensitive until they wear off. Wealways recommend you bring someone to drive you home if you are uncomfortable driving with your eyesdilated. If you have any questions before your next visit, feel free to call our office at .
--- OUTSIDE RECORDS SUMMARY | 2018-11-14 15:25 | XMS REPORT | Continuity of Care Document ---
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 Ulises Mckee MD Primary Care Physician Unavailable Payers Date Identification Numbers Payment Provider Subscriber Policy Number: [id number] [employer] Jordon Fleming PayID: [id number] [address] [address] [place] [address] Advance Directives Description No Information Available Problems Description No Information Family History Description No Information Available Social History Type Date Description Comments Sex Unknown Tobacco Use Start: Unknown Patient has never smoked Smoking Status Reviewed: 10/02/18 Patient has never smoked Allergies, Adverse Reactions, Alerts Date Description Reaction Status Severity Comments 10/02/2018 Bactrim Active 10/02/2018 Cipro Active Medications Medication Date Status Form Strength Qnty SIG Indications Ordering Provider Peg-3350/Electr 10/02/ Active Solution 236gm 4000ml by mouth Joseph stephenson 2018 Rec as raquel Echevarria DO Naproxen 12/27/ Active Tablets 500mg 60tabs 1 by mouth M70.41 Karen, 2018 twice a Praful, day as MD needed pain Amlodipine 11/02/ Active Tablets 10mg 90tabs 1 by mouth I10 Nupur Mckee [place] 2017 every day MD crystal Sumatriptan 09/01/ Active Tablets 100mg 9tabs use at G43.009 Pachikara, Succinate 2016 onset of MD Julio head ache,may repeat after 2h as needed Cipro 09/04/ Hx Tablets 500mg 14tabs 1 by mouth Sofaí, 2017 - twice a Mariana, 10/02/ day for 7 MD 2019 days Metronidazole 09/04/ Hx Tablets 500mg 21tabs 1 tab frankie Gore, 2018 - 8 hours x Mariana, 10/02/ 7days 2018 Immunizations CPT Code Status Date Vaccine Lot # [id number] Given 10/19/2017 Influenza Virus Vaccine, Quadrivalent, Split, Preservative Free 52899 Given 10/08/2015 Influenza Virus Vaccine, Quadrivalent, Split, Preservative Free 72557 Given 08/26/2014 Influenza Virus Vaccine Split Virus Use For Individual 3Yr Older 67480 Given 06/13/2012 Influenza Virus Vaccine, [place] [address] Given 06/04/2010 Tetanus, Diphtheria Toxoids/Acellular Pertussis Vaccine 7 Or > 45843 Given 03/15/2002 Td Preservative Free For Use In Individuals 7 Yrs Or Older 37894 Given Unknown Td Preservative Free For Use In Individuals 7 Yrs Or Older Vital Signs Date Vital Result Comment 10/02/2018 2:24pm Height 70 inches 5'10" Weight 190.00 lb BP Systolic 151 mmHg BP Diastolic 93 mmHg Heart Rate 87 /min BMI (Body Mass Index) 27.3 kg/m2 Results Test Date Facility Test Result H/L Range Note Inflammation [facility] Esr Sedimentation 06 MM 0-20 Panel(!) [address] Rate(!) [place] [address] [phone] C-Reative Protein 1.2 <5.0 CBC W/Auto 10/02/2018 [facility] White 5.5 3/UL 4.8- 10.8 Differential(!) [address] [place] [address] Count Ser [phone] Auto CNT RBC Red Blood Count 4.74 X106/UL 4.60-6.20 Hemoglobin Blood 13.8 g/dL Low 14-18 Hematocrit 42.8 % 42-52 MCV (Corpuscular Volume) 90.3 FL 79-97 MCH (Corpuscular Hemoglobin) 29.2 pg 27-31 MCHC (Corpuscular Hemog Conc) 32.3 g/dL 32.0-36.0 RDW 13.8 % 10.5-15.0 Platelet Count Blood Auto CNT 211 X103/UL 150-450 MPV 7.1 FL Low 7.4-10.4 Lymph% 30.6 % 20.0-45.0 Marathon% 3.2 % 1.0-9.0 Neutrophil % 66.2 % 38.0-83.0 Absolute Lymphocytes 1.7 X103/UL 1.0-4.8 Absolute Monocytes 0.2 X103/UL 0.0-0.8 Absolute Neutrophils 3.6 X103/UL 1.5-7.7 CMP(!) 10/02/2018 [facility] Sodium(!) 139 mEq/L 134- [address] [place] [address] [phone] Potassium(!) 4.1 mEq/L 3.6-5.5 Chloride Serum/Plasma(!) 102 mEq/L 94-112 Carbon Dioxide Ser/Plasm(!) 29 mEq/L 21-33 BUN - Urea Nitrogen(!) 18 mg/dL 6-24 Calcium Ser/Plasma Mass/Vol(!) 9.4 mg/dL 8.6-10.2 Creatinine Serum Mass/Vol(!) 0.9 mg/dL 0.5-1.4 Glucose Serum(!) 104 mg/dL 70-105 BUN/Creatinine Ratio(!) 20 RATIO 8.0-36 Albumin Serum/Plasma(!) 4.8 g/dL 3.5-5.2 Alkaline Phosphatase(!) 115 U/L 39-117 Bilirubin Total Mass/Vol 0.5 mg/dL 0.2-1.3 Ast - Sgot 26 U/L 5-34 Alt - SGPT 38 U/L 10-40 Protein Total 7.0 g/dL 6.2-8.1 Laboratory 10/02/2018 [facility] TSH Thyroid Stim 2.35 0.38-4.31 test finding [facility] Hormone(!) [place] [address] [phone] Laboratory 10/02/2018 [facility] Free T4 (Free 0.80 ng/dL N 0.61-1.12 1 test finding Thyroxine) Laboratory 04/11/2018 N2N/CCD Import Anaplasma Negative test finding phagocytophilum B. miyamotoi PCR, B Negative 2 Babesia divergens/Mo-1 Negative 3 Babesia ducani Negative Babesia microti PCR Negative Ehrlichia chaffeensis Negative Ehrlichia ewingii/canis Negative Ehrlichia muris-like Negative 4 Lyme Disease Serology Negative 5 Laboratory test 04/04/2018 N2N/CCD Import PSA Screening 2.692 ng/mL 0-4 6 finding Laboratory test 01/07/2018 N2N/CCD Import D Dimer Quantitative < 200 ng/mL 7 finding Partial Thrombo Time PTT 33.0 s 26-36.3 CBC Auto Diff 01/07/2018 N2N/CCD Import Abs Basophils 0.1 10^3/uL 0-0.2 Abs Eosinophils 0.2 10^3/uL 0-0.6 Abs Lymphocytes 1.6 10^3/uL 1-4.8 Abs Monocytes 0.5 10^3/uL 0-0.8 Abs Neutrophils 4.0 10^3/uL 1.5-7.7 Abs Nucleated RBC 0 10^3/uL Basophil % 0.9 % 0-2 Eosinophil % 2.6 % 0-6 Granulocyte % 63.2 % 38-83 Hematocrit 39 % Low 42-52 Hemoglobin 13.3 g/dL Low 14-18 Lymphocyte % 25.7 % 25-47 Mean Corpuscular HGB Conc 34 g/dL 31-36 Mean Corpuscular Hemoglobin 30 pg 27-31 Mean Corpuscular Volume 87 fL 80-94 Mean Platelet Volume 7.5 um3 7.4-10.4 Monocyte % 7.6 % High 0-7 Nucleated Red Blood Cells % 0.1 1 Platelet Count 213 10^3/uL 150-450 Red Blood Count 4.44 10^6/uL 4-5.4 Red Cell Distribution Width 13 % 10.5-15 White Blood Count 6.4 10^3/uL 3.5-10.8 Inr/Protime 01/07/2018 N2N/CCD Import Inr 0.89 1 0.77-1.02 1 [id number] 2 ADDITIONAL INFORMATION This test was developed and its performance characteristics determined by [facility] in a manner consistent with CLIA requirements. This test has not been cleared or approved by the U.S. Food and Drug Administration. Test Performed by: [facility] - [address] [address] 3 ADDITIONAL INFORMATION This test was developed and its performance characteristics determined by [facility] in a manner consistent with CLIA requirements. This test has not been cleared or approved by the U.S. Food and Drug Administration. 4 ADDITIONAL INFORMATION This test was developed and its performance characteristics determined by [facility] in a manner consistent with CLIA requirements. This test has not been cleared or approved by the U.S. Food and Drug Administration. 5 No evidence of antibodies to B. burgdorferi detected. False negative results may occur in recently infected patients (<=2 weeks) due to low or undetectable antibody levels to B. burgdorferi. If recent exposure is suspected, a second sample should be collected and tested in 2-4 weeks. Test Performed by: [facility] - [place] [id number] [place] [id number] 6 Serum levels of PSA measured using the [employer] DXI Hybritech immunoassay should not be interpreted as absolute evidence of the presence or absence of disease. The PSA value should be used in conjunction with other pertinent clinical diagnostic procedures. The values obtained with different assay methods or kits cannot be used interchangeably. 7 Please note: The following may produce a false positive D Dimer test: - Rheumatoid factor greater than 60 IU/ml - Plasma hemoglobin greater than 0.05 gm/dl - Bilirubin greater than 50 mg/dl - Lipids greater than 1000 mg/dl - FDP greater than 20 ug/ml Procedures Description No Information Available Encounters Type Date Location Provider Dx Diagnosis Office Visit 10/02/2018 Gastroenter[facility] Joseph Echevarria R10.32 Left lower 2:30p [facility] quadrant pain R19.4 Change in bowel habit Plan of Treatment Future Appointment(s):11/01/2018 8:45 am - Joseph Echevarria DO at [facility]10/02/2018 - Joseph Echevarria DOR10.32 Left lower quadrant painR19.4 Change in bowel habit
[2018-11-14 15:47] VITALS: BP 136/86
--- NOTE | 2018-11-14 16:53 | UC ---
Truncal Trauma HPI - HPI Summary HPI Summary: SLIPPED AND FELL ON ICE THIS MORNING. LANDED ON RIGHT SIDE BUT HAS BILATERAL RIB CAGE PAIN. WORSE WITH MVMT, DEEP BREATHS AND COUGHING/SNEEZING. - History Of Current Complaint Chief Complaint: UCTrauma Stated Complaint: BACK AND CHEST INJURY FROM A FALL Time Seen by Provider: 11/14/18 15:57 Hx Obtained From: Patient Onset/Duration: Sudden Onset, Lasting Hours, Still Present Onset Of Pain: Immediate Severity Initially: Moderate Severity Currently: Moderate Pain Intensity: 4 Pain Scale Used: 0-10 Numeric Mechanism Of Injury: Fall From A Standing Position Aggravating Factor(s): Movement, Deep Breathing, Cough Alleviating factor(s): Nothing Associated Signs And Symptoms: Negative: SOB, Chest Pain, Cough, Fever, Nausea - Allergies/Home Medications Allergies/Adverse Reactions: Allergies Allergy/AdvReac Type Severity Reaction Status Date / Time ciprofloxacin [From Cipro] Allergy Unknown Verified 11/14/18 15:47 Reaction Details nitroglycerin AdvReac See Comment Verified 11/14/18 15:47 sulfamethoxazole AdvReac Headache Verified 11/14/18 15:47 [From Bactrim] trimethoprim [From Bactrim] AdvReac Headache Verified 11/14/18 15:47 Home Medications: Home Medications Ibuprofen TAB* [Advil TAB*] 600 mg PO ONCE PRN 11/14/18 [History Confirmed 11/14] PMH/Surg Hx/FS Hx/Imm Hx Cardiovascular History: Hypertension - Surgical History Surgical History: Yes Surgery Procedure, Year, and Place: HERNIA SX A CHILD, EAR SX A CHILD - Family History Known Family History: Positive: Diabetes - Social History Alcohol Use: Weekly Alcohol Amount: 2x week Substance Use Type: None Smoking Status (MU): Never Smoked Tobacco Review of Systems All Other Systems Reviewed And Are Negative: Yes Constitutional: Positive: Negative Respiratory: Positive: Other - pleuritic pain Cardiovascular: Positive: Negative Gastrointestinal: Positive: Negative Physical Exam Triage Information Reviewed: Yes Appearance: Well-Appearing, No Pain Distress, Well-Nourished Vital Signs: Initial Vital Signs Temp 98.9 F 11/14/18 15:43 Pulse 80 11/14/18 15:43 Resp 14 11/14/18 15:43 BP 136/86 11/14/18 15:43 Pulse Ox 100 11/14/18 15:43 Vital Signs Reviewed: Yes Eyes: Positive: Conjunctiva Clear ENT: Positive: Hearing grossly normal Respiratory Exam: Normal Cardiovascular Exam: Normal Abdomen Description: Positive: Soft Musculoskeletal: Positive: No Edema, Other: - TTP BILATERAL RIB CAGE RIGHT > LEFT Neurological: Positive: Alert Psychological: Positive: Age Appropriate Behavior Skin: Negative: Rashes Diagnostics - Radiology BILATERAL RIB XRAYS Radiology Interpretation Completed By: Radiologist Summary of Radiographic Findings: 1. NONDISPLACED FRACTURE OF THE RIGHT ANTEROLATERAL FIFTH RIB. 2. PROBABLE CHOLELITHIASIS. Truncal Trauma Course/Dx - Differential Dx/Diagnosis Provider Diagnosis: Right rib fracture Discharge - Sign-Out/Discharge Documenting (check all that apply): Patient Departure All imaging exams completed and their final reports reviewed: Yes - Discharge Plan Condition: Stable Disposition: HOME Patient Education Materials: Rib Fracture (ED) Referrals: Ulises Mckee MD [Primary Care Provider] - If Needed Additional Instructions: NONDISPLACED FRACTURE OF THE RIGHT ANTEROLATERAL FIFTH RIB SEEN ON XRAY TODAY. RIB INJURIES AND FRACTURES: You have been diagnosed as having either bruised or broken ribs. These two injuries are treated in the same way. It will usually take four to six weeks for these injured ribs to heal. Sometimes, rib belts or anesthetic injections of the chest wall help reduce the pain. You should cough or take a deep breath at least every hour or two to prevent lung complications. You should not engage in any strenuous physical activity until released by your physician. The usual rule is "if it hurts, don't do it." Rib fractures can lead to serious lung complications including lung collapse, hemorrhage, and pneumonia. You should go to the ED if any of the following occur: (1) Fever or chills. (2) Persistent cough, coughing up blood, or shortness of breath. (3) Increasing pain. (4) Weakness, lightheadedness, or fainting. IBUPROFEN MAX DOSE: 600MG (3 TABS) EVERY 6 HRS OR 800MG (4 TABS) EVERY 8 HRS OR NAPROXEN MAX DOSE: 440MG (2 TABS) EVERY 12 HRS TYLENOL MAX DOSE: 1000MG (2 EXTRA STRENGTH TABS) EVERY 8 HRS OR 650MG (2 REGULAR TABS) EVERY 6 HRS - Billing Disposition and Condition Condition: STABLE Disposition: Home
== END 2018-11-14 17:32 | disposition home or self-care (01) ==
LOC: UCEAST 15:20
DX: S22.31XA Fracture of one rib, right side, initial encounter for closed fracture (principal); W00.0XXA Fall on same level due to ice and snow, initial encounter; Y92.9 Unspecified place or not applicable; Z88.1 Allergy status to other antibiotic agents; Z88.2 Allergy status to sulfonamides; Z88.8 Allergy status to other drugs, medicaments and biological substances
CPT/HCPCS: 71111; 99211; G0463

== ENCOUNTER 2020-10-13 11:40 | Observation (INO) ==
[2020-10-13 12:12] LABS: ABS Eosinophils 0.1 10^3/ul (0-0.6); ABS Lymphocytes 0.9 10^3/ul (1.0-4.8); ABS Monocytes 0.4 10^3/ul (0-0.8); ABS Neutrophils 3.5 10^3/ul (1.5-7.7); Eosinophil % 1.8 %; Hematocrit 44 % (42-52); Hemoglobin 15.2 g/dL (14.0-18.0); Lymphocyte % 19.3 %; Mean Corpuscular HGB Conc 35 g/dL (31-36); Mean Corpuscular Hemoglobin 30 pg (27-31); Mean Corpuscular Volume 87 fL (80-94); Mean Platelet Volume 8.2 fL (7.4-10.4); Platelet Count 211 10^3/uL (150-450); Red Blood Count 5.05 10^6 /uL (4.18-5.48); Red Cell Distribution Width 14 % (10-15); White Blood Count 4.9 10^3/uL (3.5-10.8)
[2020-10-13 12:30] LABS: Albumin 4.7 g/dL (3.2-5.2); Albumin/Globulin Ratio 1.7 (1-3); BUN/Creatinine Ratio 9.5 (8-20); Calcium 9.2 mg/dL (8.6-10.3); EGFR African American 80.6 (>60); EGFR Non-African American 66.6 (>60); Globulin 2.8 g/dL (2-4); Potassium 3.8 mmol/L (3.5-5.0); Total Bilirubin 0.6 mg/dL (0.2-1.0); Total Protein 7.5 g/dL (6.4-8.9)
[2020-10-13 16:03] LABS: HDL Cholesterol 53.4 mg/dL
[2020-10-13] MEDS ORDERED: Al Hydrox/Mg Hydrox/Simet LIQ 30 ML UDC PO PRN (16:28)
[2020-10-14 12:44] VITALS: BP 140/90
== END 2020-10-14 15:00 | disposition home or self-care (01) ==
LOC: ED 11:40 → MED 11:40
PROVIDERS: ADMIT Internal Medicine; ATTEND Internal Medicine